=== PATIENT | male | born 1950 | race Caucasian/White ===

== ENCOUNTER 2019-12-14 12:55 | Outpatient (REF) | payer MEDICARE, SELFPAY ==
[2019-12-14 14:05] LABS: MANUAL DIFF FLAG NO
[2019-12-14 14:08] LABS: Basophils Percent Auto 0.4 % (0-2); Eosinophils Absolute Auto 0.4 X10*3/uL (0.0-0.4); Eosinophils Percent Auto 4.9 % (0-4); Hematocrit 47.3 % (42-52); Hemoglobin 15.1 g/dl (14.0-18.0); Imm Gran Abs Auto 0.04 X10*3/uL (0.00-0.03); Imm Gran Pct Auto 0.4 % (0.0-0.4); Lymphocytes Absolute Auto 2.6 X10*3/uL (1.2-4.9); Lymphocytes Percent Auto 29.3 % (20-40); Mean Corpuscular HGB Conc 31.9 g/dl (31.0-36.0); Mean Corpuscular Hemoglobin 28.9 pg (27.0-33.0); Mean Corpuscular Volume 90.6 fL (80-98); Mean Platelet Volume 9.3 fL (9.4-12.4); Monocytes Absolute Auto 0.9 X10*3/uL (0.1-1.2); Monocytes Percent Auto 9.4 % (2-11); Neutrophils Percent Auto 55.6 % (45-73); Platelet Count 206 X10*3/uL (160-400); Red Blood Count 5.22 X10*6/uL (4.60-5.80); Red Cell Distribution Width 13.4 % (11.0-16.0)
[2019-12-14 14:24] LABS: Glucose Urine UA NEG (NEG); Leukocyte Esterase Urine NEG (NEG); Nitrite Urine NEG (NEG); Specific Gravity - Urine 1.025 (1.005-1.025); Urine Blood 1+ (NEG); Urine Ketones NEG (NEG); Urine Protein NEG (NEG-TRACE)
[2019-12-14 14:32] LABS: Appearance Urine CLEAR; Color Urine YELLOW
[2019-12-14 14:40] LABS: Alanine Aminotransferase 40 U/L (0-40); Alkaline Phosphatase 94 U/L (39-117); Anion Gap 10 (12-20); Aspartate Amino Transferase 30 U/L (5-37); Bilirubin Total 0.8 mg/dL (0.0-1.0); Blood Urea Nitrogen 22 mg/dL (9-16); Calcium 8.9 mg/dL (8.4-10.2); Carbon Dioxide 28 mmol/L (22-29); Chloride 106 mmol/L (96-108); Cholesterol 195 mg/dL; Estimated Glomerular Filt Rate > 60; Glucose Fasting 105 mg/dL (60-99); HDL Cholesterol 45 mg/dL; LDL Cholesterol Calculated 113 mg/dl; Potassium 4.3 mmol/l (3.3-5.1); Sodium 140 mmol/L (135-145); Total Protein 6.9 g/dL (6.5-8.0); Triglycerides 189 mg/dL
[2019-12-14 14:41] LABS: Creatinine Urine 104.01 mg/dL; Microalbum/Creatinine Ratio Ur 12.4 ug/mg cr
[2019-12-14 15:02] LABS: Prostate Specific Antigen 0.49 ng/mL (<0.05-4.0); Thyroid Stimulating Hormone 2.28 mIU/mL (0.32-4.0)
[2019-12-14 15:07] LABS: WBC Urine 0 /HPF (0-4)
[2019-12-14 15:25] LABS: Estimated Average Glucose 131 mg/dL; Hemoglobin A1c % 6.2 %
== END 2019-12-14 12:56 | disposition home or self-care (01) ==
LOC: HO.LAB 12:55
PROVIDERS: PCP Internal Medicine; Visit Provider Internal Medicine
DX: Z12.5 Encounter for screening for malignant neoplasm of prostate (principal); I10 Essential (primary) hypertension; E03.9 Hypothyroidism, unspecified; R73.03 Prediabetes; E78.00 Pure hypercholesterolemia, unspecified; J44.9 Chronic obstructive pulmonary disease, unspecified; F17.200 Nicotine dependence, unspecified, uncomplicated; Z87.448 Personal history of other diseases of urinary system
CPT/HCPCS: 36415; 80053; 80061; 81001; 82043; 83036; 84153; 84443; 85025

== ENCOUNTER 2020-06-12 10:54 | Outpatient (REF) | payer MEDICARE, SELFPAY ==
[2020-06-12 12:57] LABS: Estimated Average Glucose 126 mg/dL
[2020-06-12 13:44] LABS: Alanine Aminotransferase 27 U/L (0-40); Albumin Level 3.8 g/dL (3.5-5.0); Alkaline Phosphatase 93 U/L (39-117); Aspartate Amino Transferase 26 U/L (5-37); Bilirubin Direct 0.4 mg/dL (0.0-0.5); Bilirubin Total 0.9 mg/dL (0.0-1.0); Cholesterol 178 mg/dL; Glucose Fasting 112 mg/dL (60-99); HDL Cholesterol 44 mg/dL; LDL Cholesterol Calculated 109 mg/dl; Total Protein 6.9 g/dL (6.5-8.0); Triglycerides 127 mg/dL
[2020-06-12 14:04] LABS: TSH reflex Free T4 2.61 uIU/mL (0.32-4.0)
[2020-06-12 15:44] LABS: Reflex LDLD? No
== END 2020-06-12 10:55 | disposition home or self-care (01) ==
LOC: HO.LNP 10:54
PROVIDERS: Visit Provider Internal Medicine
DX: I10 Essential (primary) hypertension (principal); E03.9 Hypothyroidism, unspecified; R73.03 Prediabetes; E78.00 Pure hypercholesterolemia, unspecified
CPT/HCPCS: 80061; 80076; 82947; 83036; 84443

== ENCOUNTER 2020-12-18 10:46 | Outpatient (REF) | payer MEDICARE, SELFPAY ==
[2020-12-18 10:50] LABS: MANUAL DIFF FLAG NO
[2020-12-18 11:08] LABS: Basophils Percent Auto 0.4 % (0-2); Eosinophils Absolute Auto 0.5 X10*3/uL (0.0-0.4); Eosinophils Percent Auto 5.6 % (0-4); Hematocrit 44.6 % (42-52); Hemoglobin 14.3 g/dl (14.0-18.0); Imm Gran Abs Auto 0.03 X10*3/uL (0.00-0.03); Imm Gran Pct Auto 0.3 % (0.0-0.4); Lymphocytes Absolute Auto 2.9 X10*3/uL (1.2-4.9); Lymphocytes Percent Auto 32.2 % (20-40); Mean Corpuscular HGB Conc 32.1 g/dl (31.0-36.0); Mean Corpuscular Volume 90.5 fL (80-98); Mean Platelet Volume 9.4 fL (9.4-12.4); Monocytes Absolute Auto 0.9 X10*3/uL (0.1-1.2); Monocytes Percent Auto 10.4 % (2-11); Neutrophils Absolute Auto 4.6 X10*3/uL (2.0-8.3); Neutrophils Percent Auto 51.1 % (45-73); Platelet Count 213 X10*3/uL (160-400); Red Blood Count 4.93 X10*6/uL (4.60-5.80); Red Cell Distribution Width 13.8 % (11.0-16.0)
[2020-12-18 11:21] LABS: Appearance Urine CLEAR; Color Urine YELLOW; Glucose Urine UA NEG (NEG); Leukocyte Esterase Urine NEG (NEG); Nitrite Urine NEG (NEG); Specific Gravity - Urine >= 1.030 (1.005-1.025); Urine Blood TRACE (NEG); Urine Ketones NEG (NEG); Urine Protein NEG (NEG-TRACE)
[2020-12-18 11:32] LABS: Estimated Average Glucose 128 mg/dL; Hemoglobin A1c % 6.1 %
[2020-12-18 11:44] LABS: Alanine Aminotransferase 29 U/L (0-40); Albumin Level 3.7 g/dL (3.5-5.0); Alkaline Phosphatase 99 U/L (39-117); Anion Gap 12 (12-20); Aspartate Amino Transferase 24 U/L (5-37); Bilirubin Total 0.3 mg/dL (0.0-1.0); Blood Urea Nitrogen 25 mg/dL (9-16); Calcium 8.9 mg/dL (8.4-10.2); Carbon Dioxide 26 mmol/L (22-29); Chloride 106 mmol/L (96-108); Cholesterol 153 mg/dL; Estimated Glomerular Filt Rate 59; Glucose Fasting 112 mg/dL (60-99); HDL Cholesterol 38 mg/dL; LDL Cholesterol Calculated 70 mg/dl; Potassium 4.1 mmol/L (3.3-5.1); Sodium 140 mmol/L (135-145); Total Protein 6.7 g/dL (6.5-8.0); Triglycerides 226 mg/dL
[2020-12-18 11:45] LABS: PSA,Total (Free>4and<10) 0.47 ng/mL (0.00-4.00); TSH reflex Free T4 2.44 uIU/mL (0.32-4.0)
[2020-12-18 11:59] LABS: Creatinine Urine 206.31 mg/dL; Microalbum/Creatinine Ratio Ur 5.3 ug/mg cr
[2020-12-18 12:05] LABS: WBC Urine 0-2 /HPF (0-4)
[2020-12-18 12:33] LABS: Reflex LDLD? No
== END 2020-12-18 10:47 | disposition home or self-care (01) ==
LOC: HO.LNP 10:46
PROVIDERS: Visit Provider Internal Medicine
DX: Z00.00 Encounter for general adult medical examination without abnormal findings (principal); Z12.5 Encounter for screening for malignant neoplasm of prostate; E03.9 Hypothyroidism, unspecified; E78.00 Pure hypercholesterolemia, unspecified; I10 Essential (primary) hypertension; R73.03 Prediabetes
CPT/HCPCS: 80053; 80061; 81001; 81003; 82043; 83036; 84153; 84443; 85025

== ENCOUNTER 2021-02-09 14:14 | Outpatient (REF) | payer MEDICARE, SELFPAY ==
--- NOTE | ~2021-02-09 | CT_ITS ---
EXAMINATION: CT CHEST SCREENING CLINICAL INFORMATION: Smoking history. Current smoker. Greater than 50 pack-year history. COMPARISON: None. TECHNIQUE: Multidetector volumetric CT imaging of the chest is performed without contrast using low dose technique. Additional 2D coronal and sagittal reformatted images and axial 3D maximum intensity projection (MIP) images are generated on the CT workstation. This CT examination was performed using dose optimization techniques as appropriate, variously including the following: *Automated exposure control *Adjustment of mA and/or kV according to patient size (this includes techniques or standardized protocols for targeted exams where dose is matched to indication/reason for exam; i.e. extremities or head) *Use of iterative reconstruction technique DLP: 69 mGy-cm FINDINGS: LUNGS: There is a 3 mm peripheral or subpleural calcified right upper lobe nodule axial image 124 series 5. There is a 3 mm peripheral or subpleural calcified left lower lobe nodule axial image 220 series 5. There is a 3 mm peripheral or subpleural calcified right lower lobe nodule axial image 405 series 5. Increased peripheral interstitial markings or reticulation questionable for mild interstitial lung disease. This is greatest in the right lower lobe. MEDIASTINUM: There is coronary artery calcification. The mediastinum is otherwise normal. PLEURA: There is no pleural effusion. There is is bilateral pleural thickening and scattered areas of pleural calcification. No pleural mass is seen. AXILLA: No lymphadenopathy. UPPER ABDOMEN: There is a 4 cm low-attenuation lesion in the upper pole of the right kidney probably representing a cyst. OSSEOUS STRUCTURES: There are degenerative changes of the spine. CT/CT lung screening IMPRESSION: Scattered areas of pleural thickening and pleural calcification questionable for asbestos related pleural disease. Small calcified pulmonary nodules. No suspicious pulmonary nodule seen. Increased peripheral reticular markings questionable for early interstitial lung disease. Coronary artery calcification. ASSESSMENT: Lung-RADS category 2: Benign RECOMMENDATION: Annual low-dose chest CT follow-up recommended.
== END 2021-02-09 14:15 | disposition home or self-care (01) ==
LOC: HO.CT 14:14
PROVIDERS: PCP Internal Medicine; Visit Provider Physician Assistant Medical
DX: Z12.2 Encounter for screening for malignant neoplasm of respiratory organs (principal); F17.210 Nicotine dependence, cigarettes, uncomplicated
CPT/HCPCS: 71271; G0296

== ENCOUNTER 2021-06-21 12:17 | Outpatient (REF) | payer MEDICARE, SELFPAY ==
[2021-06-21 12:43] LABS: Estimated Average Glucose 126 mg/dL
[2021-06-21 12:52] LABS: Alanine Aminotransferase 47 U/L (0-40); Albumin Level 3.9 g/dL (3.5-5.0); Alkaline Phosphatase 94 U/L (39-117); Aspartate Amino Transferase 27 U/L (5-37); Bilirubin Direct 0.2 mg/dL (0.0-0.5); Bilirubin Total 0.6 mg/dL (0.0-1.0); Cholesterol 177 mg/dL; Glucose Fasting 141 mg/dL (60-99); HDL Cholesterol 43 mg/dL; LDL Cholesterol Calculated 103 mg/dl; Total Protein 7.1 g/dL (6.5-8.0); Triglycerides 156 mg/dL
[2021-06-21 13:29] LABS: Reflex LDLD? No
== END 2021-06-21 12:18 | disposition home or self-care (01) ==
LOC: HO.LNP 12:17
PROVIDERS: Visit Provider Internal Medicine
DX: R73.03 Prediabetes (principal); E78.00 Pure hypercholesterolemia, unspecified
CPT/HCPCS: 80061; 80076; 82947; 83036

== ENCOUNTER 2021-12-20 10:46 | Outpatient (REF) | payer MEDICARE, SELFPAY ==
[2021-12-20 10:50] LABS: MANUAL DIFF FLAG NO
[2021-12-20 11:53] LABS: Basophils Absolute Auto 0.1 X10*3/uL (0.0-0.2); Basophils Percent Auto 0.6 % (0-2); Eosinophils Absolute Auto 0.5 X10*3/uL (0.0-0.4); Eosinophils Percent Auto 4.9 % (0-4); Hemoglobin 15.2 g/dl (14.0-18.0); Imm Gran Abs Auto 0.04 X10*3/uL (0.00-0.03); Imm Gran Pct Auto 0.4 % (0.0-0.4); Lymphocytes Absolute Auto 3.1 X10*3/uL (1.2-4.9); Mean Corpuscular Volume 87.8 fL (80.0-98.0); Monocytes Percent Auto 10.9 % (2-11); Neutrophils Absolute Auto 4.6 x10*3/uL (2.0-8.3); Neutrophils Percent Auto 50.2 % (45-73); Platelet Count 218 X10*3/uL (160-400); Red Blood Count 5.24 X10*6/uL (4.60-5.80); Red Cell Distribution Width 13.4 % (11.0-16.0); White Blood Count 9.3 X10*3/uL (4.8-10.8)
[2021-12-20 12:02] LABS: Alanine Aminotransferase 38 U/L (0-40); Alkaline Phosphatase 94 U/L (39-117); Anion Gap 15 (12-20); Aspartate Amino Transferase 31 U/L (5-37); Bilirubin Total 0.8 mg/dL (0.0-1.0); Blood Urea Nitrogen 17 mg/dL (9-16); Calcium 8.9 mg/dL (8.4-10.2); Carbon Dioxide 26 mmol/L (22-29); Chloride 103 mmol/L (96-108); Cholesterol 171 mg/dL; Estimated Glomerular Filt Rate > 60; Glucose Fasting 112 mg/dL (60-99); HDL Cholesterol 38 mg/dL; LDL Cholesterol Calculated 102 mg/dl; Potassium 4.2 mmol/L (3.3-5.1); Sodium 140 mmol/L (135-145); Total Protein 7.2 g/dL (6.5-8.0); Triglycerides 158 mg/dL
[2021-12-20 12:22] LABS: Creatinine Urine 126.18 mg/dL; Microalbum/Creatinine Ratio Ur 6.3 ug/mg cr
[2021-12-20 12:25] LABS: Estimated Average Glucose 137 mg/dL; Hemoglobin A1c % 6.4 %
[2021-12-20 13:20] LABS: Appearance Urine Clear; Color Urine Yellow; Glucose Urine UA Negative (Negative); Leukocyte Esterase Urine Negative (Negative); Nitrite Urine Negative (Negative); Urine Blood Negative (Negative); Urine Ketones Negative (Negative); Urine Protein Negative (Neg-Trace)
[2021-12-20 13:25] LABS: Bacteria Urine None Seen (None Seen); Hyaline Casts Urine 0-2 /LPF (0-2); Squamous Epithelial Cell Urine 0-2 /HPF (0-2); WBC Urine 0-5 /HPF (0-5)
== END 2021-12-20 10:47 | disposition home or self-care (01) ==
LOC: HO.LNP 10:46
PROVIDERS: Visit Provider Internal Medicine
DX: Z12.5 Encounter for screening for malignant neoplasm of prostate (principal); I10 Essential (primary) hypertension; E03.9 Hypothyroidism, unspecified; E78.00 Pure hypercholesterolemia, unspecified; R73.03 Prediabetes
CPT/HCPCS: 80053; 80061; 81001; 82043; 83036; 84153; 84443; 85025

== ENCOUNTER 2022-02-12 16:16 | Outpatient (REF) | payer MEDICARE, SELFPAY ==
--- NOTE | ~2022-02-12 | CT_ITS ---
EXAMINATION: CT CHEST SCREENING CLINICAL INFORMATION: Smoking history. Current smoker. 54 pack year history. COMPARISON: Previous chest CT January 2021 TECHNIQUE: Multidetector volumetric CT imaging of the chest is performed without contrast using low dose technique. Additional 2D coronal and sagittal reformatted images and axial 3D maximum intensity projection (MIP) images are generated on the CT workstation. This CT examination was performed using dose optimization techniques as appropriate, variously including the following: *Automated exposure control *Adjustment of mA and/or kV according to patient size (this includes techniques or standardized protocols for targeted exams where dose is matched to indication/reason for exam; i.e. extremities or head) *Use of iterative reconstruction technique DLP: 135 mGy-cm FINDINGS: LUNGS: Small calcified and noncalcified pulmonary nodules are stable, largest measuring 3 mm. Slight interval increase in peripheral or subpleural scarring or subsegmental atelectasis in the posteromedial right lower lobe adjacent to the spine; for example, axial image 454 series 4. There is again question of mild peripheral interstitial lung disease in the right lower lobe. No endobronchial or endotracheal lesion. MEDIASTINUM: Normal. CORONARY ARTERY CALCIFICATION: [id number]. PLEURA: Bilateral calcified and noncalcified pleural plaques similar to previous exam. No pleural effusion. AXILLA: No lymphadenopathy. UPPER ABDOMEN: Right renal cyst is stable. OSSEOUS STRUCTURES: Degenerative changes of the spine. CT/CT lung screening IMPRESSION: Interval increase in probable scarring or subsegmental atelectasis in the peripheral or subpleural right lower lobe adjacent to the spine. Stable small calcified and noncalcified pulmonary nodules, largest measuring 3 mm. Stable calcified and noncalcified pleural plaques. Qjat-ku-gpoqsccj coronary artery calcification. ASSESSMENT: Lung-RADS category 2: Benign RECOMMENDATION: Annual low-dose chest CT follow-up recommended.
== END 2022-02-12 16:17 | disposition home or self-care (01) ==
LOC: HO.CT 16:16
PROVIDERS: PCP Internal Medicine; Visit Provider Physician Assistant Medical
DX: Z12.2 Encounter for screening for malignant neoplasm of respiratory organs (principal); F17.210 Nicotine dependence, cigarettes, uncomplicated
CPT/HCPCS: 71271

== ENCOUNTER 2022-06-20 10:33 | Outpatient (REF) | payer MEDICARE, SELFPAY ==
[2022-06-20 11:08] LABS: Alanine Aminotransferase 47 U/L (0-40); Albumin Level 3.8 g/dL (3.5-5.0); Alkaline Phosphatase 99 U/L (39-117); Aspartate Amino Transferase 30 U/L (5-37); Bilirubin Direct 0.2 mg/dL (0.0-0.5); Cholesterol 188 mg/dL; HDL Cholesterol 39 mg/dL; LDL Cholesterol Calculated 106 mg/dl; Total Protein 6.6 g/dL (6.5-8.0); Triglycerides 219 mg/dL
== END 2022-06-20 10:34 | disposition home or self-care (01) ==
LOC: HO.LNP 10:33
PROVIDERS: Visit Provider Internal Medicine
DX: E78.00 Pure hypercholesterolemia, unspecified (principal)
CPT/HCPCS: 80061; 80076

== ENCOUNTER 2022-12-23 11:12 | Outpatient (REF) | payer MEDICARE, SELFPAY ==
[2022-12-23 11:20] LABS: MANUAL DIFF FLAG NO
[2022-12-23 11:42] LABS: Appearance Urine Clear; Color Urine Yellow; Glucose Urine UA Negative (Negative); Leukocyte Esterase Urine Negative (Negative); Nitrite Urine Negative (Negative); UMIC TRIGGER UACC YES; Urine Blood Trace (Negative); Urine Ketones Negative (Negative); Urine Protein Negative (Neg-Trace)
[2022-12-23 11:45] LABS: Basophils Percent Auto 0.4 % (0-2); Eosinophils Absolute Auto 0.2 X10*3/uL (0.0-0.4); Eosinophils Percent Auto 2.4 % (0-4); Hematocrit 48.8 % (42.0-52.0); Hemoglobin 15.6 g/dl (14.0-18.0); Imm Gran Abs Auto 0.05 X10*3/uL (0.00-0.03); Imm Gran Pct Auto 0.5 % (0.0-0.4); Lymphocytes Absolute Auto 3.3 X10*3/uL (1.2-4.9); Lymphocytes Percent Auto 34.6 % (20-40); Mean Corpuscular Hemoglobin 29.6 pg (27.0-33.0); Mean Corpuscular Volume 92.6 fL (80.0-98.0); Mean Platelet Volume 9.6 fL (9.4-12.4); Monocytes Percent Auto 9.9 % (2-11); Neutrophils Percent Auto 52.2 % (45-73); Platelet Count 228 X10*3/uL (160-400); Red Blood Count 5.27 X10*6/uL (4.60-5.80); Red Cell Distribution Width 14.3 % (11.0-16.0); White Blood Count 9.6 X10*3/uL (4.8-10.8)
[2022-12-23 11:46] LABS: Bacteria Urine None Seen (None Seen); Estimated Average Glucose 126 mg/dL; Hemoglobin A1C 150.1773 umol/L; Hyaline Casts Urine 0-2 /LPF (0-2); RBC Urine 0-2 /HPF (0-2); Squamous Epithelial Cell Urine 0-2 /HPF (0-2); WBC Urine 0-5 /HPF (0-5)
[2022-12-23 12:18] LABS: Alanine Aminotransferase 35 U/L (0-40); Albumin Level 3.8 g/dL (3.5-5.0); Alkaline Phosphatase 89 U/L (39-117); Anion Gap 14 (12-20); Aspartate Amino Transferase 27 U/L (5-37); Bilirubin Total 0.6 mg/dL (0.0-1.0); Blood Urea Nitrogen 17 mg/dL (9-16); Calcium 9.5 mg/dL (8.4-10.2); Carbon Dioxide 28 mmol/L (22-29); Chloride 104 mmol/L (96-108); Cholesterol 163 mg/dL (<200); Estimated Glomerular Filt Rate > 60; Glucose Fasting 118 mg/dL (60-99); HDL Cholesterol 40 mg/dL (>40); LDL Cholesterol Calculated 92 mg/dL (<100); Potassium 3.9 mmol/L (3.3-5.1); Sodium 142 mmol/L (135-145); Total Protein 7.2 g/dL (6.5-8.0); Triglycerides 159 mg/dL (<150)
[2022-12-23 12:20] LABS: Creatinine Urine 144.51 mg/dL; Microalbum/Creatinine Ratio Ur 6.2 ug/mg cr (<30)
[2022-12-23 12:23] LABS: TSH reflex Free T4 2.38 uIU/mL (0.32-4.0)
[2022-12-23 12:28] LABS: PSA,Total (Free>4and<10) 1.11 ng/mL (0.00-4.00)
== END 2022-12-23 11:13 | disposition home or self-care (01) ==
LOC: HO.LNP 11:12
PROVIDERS: Visit Provider Internal Medicine
DX: Z12.5 Encounter for screening for malignant neoplasm of prostate (principal); I10 Essential (primary) hypertension; R73.03 Prediabetes; E78.00 Pure hypercholesterolemia, unspecified
CPT/HCPCS: 80053; 80061; 81001; 82043; 82570; 83036; 84153; 84443; 85025

== ENCOUNTER 2023-04-23 15:56 | Outpatient (REF) | payer MEDICARE, SELFPAY ==
--- NOTE | ~2023-04-23 | CT_ITS ---
EXAMINATION: CT CHEST SCREENING CLINICAL INFORMATION: Current smoker with a 45 pack-year smoking history. COMPARISON: Prior CT examinations dated 02/12/2023 and 02/09/2021. TECHNIQUE: Multidetector volumetric CT imaging of the chest is performed without contrast using low dose technique. Additional 2D coronal and sagittal reformatted images and axial 3D maximum intensity projection (MIP) images are generated on the CT workstation. This CT examination was performed using dose optimization techniques as appropriate, variously including the following: *Automated exposure control *Adjustment of mA and/or kV according to patient size (this includes techniques or standardized protocols for targeted exams where dose is matched to indication/reason for exam; i.e. extremities or head) *Use of iterative reconstruction technique DLP: 70 mGy-cm FINDINGS: LUNGS: The lungs are clear, with no evidence of acute inflammation or noncalcified nodules. There are a few bilateral scattered benign, calcified granulomas. There are scattered foci of minor scar/subsegmental atelectasis at the right base, without associated focal airway obstruction. MEDIASTINUM: The thyroid is unremarkable. There is no thoracic aortic aneurysm. There are mild atherosclerotic calcifications of the great vessel origins and thoracic aorta. No mediastinal or hilar lymphadenopathy is seen. CORONARY ARTERY CALCIFICATION: Mild. PLEURA: There are multiple bilateral calcified pleural plaques, most pronounced anteriorly within the upper thoracic cavities. No pleural mass lesion is noted. AXILLA: No lymphadenopathy. UPPER ABDOMEN: A low-attenuation, simple appearing right renal cyst is partially included in the [id number]. The adrenal glands are unremarkable. OSSEOUS STRUCTURES: There is multi-level marked thoracolumbar spondylosis, with an appearance suggesting possible DISH (diffuse idiopathic skeletal hyperostosis). No acute or aggressive osseous finding is noted. CT/CT lung screening IMPRESSION: 1. There are benign, calcified granulomas. 2. No new nodule, mass, infiltrate or groundglass opacity is seen. 3. There is minor scar/subsegmental atelectasis at the right base, without associated focal airway obstruction. 4. No thoracic lymphadenopathy or pleural effusion is seen. 5. There are multiple calcified pleural plaques, suggesting prior asbestos exposure. No scooby pleural mass is noted. 6. Skeletal findings suggest possible DISH. No aggressive osseous lesion is seen. 7. There are mild coronary artery atherosclerotic calcifications. ASSESSMENT: Lung-RADS category 1: Negative RECOMMENDATION: Routine annual low-dose CT screening in 12 months.
== END 2023-04-23 15:57 | disposition home or self-care (01) ==
LOC: HO.CT 15:56
PROVIDERS: PCP Internal Medicine; Visit Provider Nurse Practitioner Family
DX: Z12.2 Encounter for screening for malignant neoplasm of respiratory organs (principal); F17.210 Nicotine dependence, cigarettes, uncomplicated
CPT/HCPCS: 71271

== ENCOUNTER 2023-06-23 11:19 | Outpatient (REF) | payer MEDICARE, SELFPAY ==
[2023-06-23 11:40] LABS: Alanine Aminotransferase 49 U/L (0-40); Albumin Level 3.8 g/dL (3.5-5.0); Alkaline Phosphatase 104 U/L (39-117); Aspartate Amino Transferase 38 U/L (5-37); Bilirubin Direct 0.2 mg/dL (0.0-0.5); Bilirubin Total 0.6 mg/dL (0.0-1.0); Cholesterol 159 mg/dL (<200); HDL Cholesterol 32 mg/dL (>40); LDL Cholesterol Calculated 102 mg/dL (<100); Total Protein 7.3 g/dL (6.5-8.0); Triglycerides 127 mg/dL (<150)
[2023-06-23 11:51] LABS: Reflex LDLD? No
== END 2023-06-23 11:20 | disposition home or self-care (01) ==
LOC: HO.LNP 11:19
PROVIDERS: Visit Provider Internal Medicine
DX: E78.00 Pure hypercholesterolemia, unspecified (principal)
CPT/HCPCS: 80061; 80076

== ENCOUNTER 2023-12-29 11:50 | Outpatient (REF) | payer MEDICARE, SELFPAY ==
[2023-12-29 11:55] LABS: MANUAL DIFF FLAG NO
[2023-12-29 12:14] LABS: Basophils Absolute Auto 0.1 X10*3/uL (0.0-0.2); Basophils Percent Auto 0.5 % (0-2); Eosinophils Absolute Auto 0.5 X10*3/uL (0.0-0.4); Eosinophils Percent Auto 5.4 % (0-4); Hematocrit 46.3 % (42.0-52.0); Hemoglobin 14.7 g/dl (14.0-18.0); Imm Gran Abs Auto 0.02 X10*3/uL (0.00-0.03); Imm Gran Pct Auto 0.2 % (0.0-0.4); Lymphocytes Absolute Auto 2.9 X10*3/uL (1.2-4.9); Mean Corpuscular HGB Conc 31.7 g/dl (31.0-36.0); Mean Corpuscular Hemoglobin 29.5 pg (27.0-33.0); Mean Platelet Volume 9.4 fL (9.4-12.4); Monocytes Absolute Auto 0.9 X10*3/uL (0.1-1.2); Monocytes Percent Auto 9.7 % (2-11); Neutrophils Absolute Auto 4.9 x10*3/uL (2.0-8.3); Neutrophils Percent Auto 53.2 % (45-73); Platelet Count 239 X10*3/uL (160-400); Red Blood Count 4.98 X10*6/uL (4.60-5.80); Red Cell Distribution Width 13.8 % (11.0-16.0); White Blood Count 9.3 X10*3/uL (4.8-10.8)
[2023-12-29 12:16] LABS: Appearance Urine Clear; Color Urine Yellow; Glucose Urine UA Negative (Negative); Leukocyte Esterase Urine Negative (Negative); Nitrite Urine Negative (Negative); PH 5.5 (5.0-9.0); Urine Blood Negative (Negative); Urine Ketones Negative (Negative); Urine Protein Negative (Neg-Trace)
[2023-12-29 12:19] LABS: Bacteria Urine None Seen (None Seen); Hyaline Casts Urine 0-2 /LPF (0-2); RBC Urine 0-2 /HPF (0-2); Squamous Epithelial Cell Urine 0-2 /HPF (0-2); WBC Urine 0-5 /HPF (0-5)
[2023-12-29 12:34] LABS: Estimated Average Glucose 128 mg/dL; Hemoglobin A1C 163.0702 umol/L; Hemoglobin A1c % 6.1 % (<6.0); Total Hemoglobin (HGBA1C) 3755.4239 umol/L
[2023-12-29 12:40] LABS: Alanine Aminotransferase 44 U/L (0-40); Albumin Level 3.8 g/dL (3.5-5.0); Alkaline Phosphatase 91 U/L (39-117); Anion Gap 12 (12-20); Aspartate Amino Transferase 38 U/L (5-37); Bilirubin Direct 0.1 mg/dL (0.0-0.5); Blood Urea Nitrogen 17 mg/dL (9-16); Calcium 9.6 mg/dL (8.4-10.2); Carbon Dioxide 29 mmol/L (22-29); Chloride 105 mmol/L (96-108); Cholesterol 193 mg/dL (<200); Estimated Glomerular Filt Rate > 60; Glucose Fasting 122 mg/dL (60-99); HDL Cholesterol 39 mg/dL (>40); LDL Cholesterol Calculated 107 mg/dL (<100); Sodium 142 mmol/L (135-145); Total Protein 7.3 g/dL (6.5-8.0); Triglycerides 237 mg/dL (<150)
[2023-12-29 12:44] LABS: Bilirubin Total 0.4 mg/dL (0.0-1.0)
[2023-12-29 12:45] LABS: PSA,Total (Free>4and<10) 0.59 ng/mL (0.00-4.00)
[2023-12-29 12:47] LABS: TSH reflex Free T4 3.46 uIU/mL (0.32-4.0)
[2023-12-29 13:02] LABS: Creatinine Urine 115.98 mg/dL; Microalbum/Creatinine Ratio Ur 4.3 ug/mg cr (<30)
== END 2023-12-29 11:51 | disposition home or self-care (01) ==
LOC: HO.LNP 11:50
PROVIDERS: Visit Provider Internal Medicine
DX: E03.9 Hypothyroidism, unspecified (principal); R73.09 Other abnormal glucose; E78.00 Pure hypercholesterolemia, unspecified; Z12.5 Encounter for screening for malignant neoplasm of prostate
CPT/HCPCS: 80053; 80061; 80076; 81001; 82043; 82248; 82570; 83036; 84153; 84443; 85025

== ENCOUNTER 2024-04-26 12:59 | Outpatient (REF) | payer MEDICARE, SELFPAY ==
--- NOTE | ~2024-04-26 | CT_ITS ---
CLINICAL HISTORY: F17.210 - Nicotine dependence, cigarettes, uncomplicated CT lung cancer screening (LDCT) Comparison: CT/REG/SR - CT LUNG SCREENING - 04/23/23 16:26 EST Technique: Axial CT images of the chest using low-dose technique. Referring provider counseled the patient on shared decision-making for LDCT screening. Additional counseling was provided on smoking cessation. Effective radiation dose total: DLP 57.7 mGycm, CTDIvol 1.8 mGy. Findings: Lung: Mild emphysema. Calcified granulomas. Coronary artery calcifications: Moderate Limited upper abdomen: Limited evaluation of the right renal cyst. Other: There are calcified pleural plaques. Impression: LungRADS 1: Negative exam. Continue annual screening with low dose Chest CT in 12 months. ##L1# Evidence of previous asbestos exposure. Category 1: Normal; continue annual screening Category 2: Benign appearance or behavior, continue annual screening Category 3: Probably benign, [address] recommended Category 4A: Suspicious, [address] recommended; may consider PET/CT Category 4B: Suspicious, Additional diagnostics and/or tissue sampling recommended Category 4X: Suspicious, Additional diagnostics and/or tissue sampling recommended Category 0: Recalls (incomplete screen due to Incomplete coverage, Noise, Respiratory motion, Expiration, Obscured by acute abnormality) This document has been electronically signed by: Ester Aguilar MD on 04/27/2024 12:49:07
--- OUTSIDE RECORDS SUMMARY | 2024-04-26 14:45 | XMS_ITS ---
Author Organization Dhruv Duncan MD Address [address] [place] [phone] Care Team Providers Care Director Network Development Name Role Phone Dhruv Duncan Primary Care Provider REASON FOR VISIT 6 month Encounters Encounter Location Date Provider Diagnosis Dhruv Duncan MD [address] [place] [address] [address] [place] [phone] 12/30/2023 Dhruv Duncan Plan Of Treatment Next Appt Details Provider Name:Dhruv jeffers, 06/28/2024 07:30:00 AM, [address] [place] [address], [phone], Provider Name:Dhruv jeffers, 07/05/2024 02:00:00 PM, [address] [place] [address], [phone], Provider Name:Dhruv jeffers, 12/31/2024 07:15:00 AM, [address] [place] [address], [phone], Provider Name:Dhruv jeffers, 01/07/2025 01:00:00 PM, [address] [place] [address], [phone], Progress Notes * Ortega LANGE LDOB:[birth year] (73 yo M)Acc No.[id number]:12/30/2023 Progress Notes Patient:?Ortega LANGE Provider:?Dhruv Duncan MD :1950???Age:73 Y???Sex:Male Atilio e:12/30/2023 Address:[address] [place], [place] [id number] Subjective: * Chief Complaints: * ???1. 6 month. * Medical History:? Objective: * Vitals:? Assessment: Plan: * Treatment: * * The named appointment provid er may or may not be the originator of this progress note, and it is not deemed complete until electronically signed by the appointment provider. Sign off status: Pending * Provider:?Dhruv Duncan MD Date:?1 Generated for Ceasar beltran/Jovon/Ninaitting on:?04/26/2024 02:45 PM EST
--- OUTSIDE RECORDS SUMMARY | 2024-04-26 14:46 | XMS_ITS ---
Author Organization Dhruv Duncan MD Address [address] [place] [phone] Care Team Providers Care Loan Analyst Name Role Phone Dhruv Duncan Primary Care Provider Allergies No Known Allergies REASON FOR VISIT Sick for 2 weeks with vomiting and diarrhea started with chills since 04-16-24 productive cough congestion, muscle pains, runny nose, Video [phone], Did not test for Covid Medications Medication [...] Dhruv Duncan MD [address] [place] [phone] 04/22/2024 Dhruv Duncan Gastroenteritis due to norovirus [...] Next Appt Details Provider Name:Dhruv Araujo ier, 06/28/2024 07:30:00 AM, [address] [place] [address], [address], [phone], Provider Name:Dhruv Araujo ier, 07/05/2024 02:00:00 PM, [address] [place] [address], [address], [phone], Provider Name:Dhruv Araujo ier, 12/31/2024 07:15:00 AM, [address] [place] [address], [address], [phone], Provider Name:Dhruv Araujo ier, 01/07/2025 01:00:00 PM, [address] [place] [address], [address], [phone], Progress Notes * Ortega LANGE LDOB:[birth year] (73 yo M)Acc No.[id number]:04/22/2024 Patient:?Ortega LANGE Provider:?Dhruv Duncan MD :1950???Age:73 Y???Sex:Male Atilio e:04/22/2024 Address:[address] [place] [phone] Subjective: * Chief Complaints: * ???Sick for 2 weeks with vom iting and diarrhea started with chills since 214-25 productive cough congestion, muscle pains, runny noseVideo [phone] not test for Covid * HPI: ???Symptom(s):?Telehealth?Location of provider rendering services:?[address], [address],?Location of patient:?at address listed in demographics for today's visit,?Patient identification confirmed using:?Name, ,?Telehealth method:?Telephone only. Patient not visible to care provider.,?Consent:?Patient verbally consented to treatment, Patient verbally consented to billing insurance company, Patient informed of any privacy concerns related to method of visit,?Total time spend talking with patient (minutes)?16.?patient is a 73 yo male video telehealth, had started last week. and vomiting went away and diarrhea. nothing to eat for 2 days and just a little water. just came back from a cruise and 3 days later had it. * ROS:?General/Constitutional:?Admits?Chills.?Admits?Fatigue.?Denies?Fever.?Admits?Headache.?ENT:?Patient denies?decreased sense of smell, any loss of taste, sore throat.?Denies?Sore throat.?Respiratory:?Admits?Cough.?Denies?Shortness of breath at rest.?Denies?Shortness of breath with exertion.?Admits?Sputum production.?Denies?Wheezing.?Gastrointestinal:?Admits?Diarrhea.?Denies?Nausea.?Denies?Vomiting,?Started vomiting last week now ust diarrhea.?Musculoskeletal:?Patient denies?muscle aches.?Peripheral Vascular:?Patient denies?red and blue toes.? * Medical History:? * Surgical History:? * Hospitalization/Major Diagno stic Procedure:? * Medications:?TakingAtorvasta tin Calcium 80 MG Tablet TAKE ONE TABLET [...] reviewed and reconciled with the patient * Allergies:?N.K.D.A.yes[Aller gies Verified] Objective: * Vitals:?Ht: 72, Wt: 232, BMI :31.46, Wt-k.23. weight at home is 232 BP? not taken no temp. Assessment: * Assessment: 1.?Gastroenteritis due to no rovirus - A08.11 (Primary)??? Plan: * Treatment: * Procedure Codes:? * * Sign off status: Completed true * Provider:?Dhruv Duncan MD Date:?0 04/22/2024 Generated for Ceasar beltran/Jovon/eTsuesmyaw on:?04/26/2024 02:46 PM EST History and Physical Notes * HPI (History of Present Illness) Category Sub-Category Detail Notes Category Not es Symptom(s) Telehealth Location of [facility] rendering services:: [address], [address] [...]
--- OUTSIDE RECORDS SUMMARY | 2024-04-26 14:46 | XMS_ITS ---
Author Organization Dhruv Duncan MD Address [address] [place] [phone] Care Team Providers Care Machine Wiper Name Role Phone Dhruv Duncan Primary Care Provider [phone] Allergies No Known Allergies REASON FOR VISIT review labs Medications Medication SIG (Take, Route, Frequency, Duration) Notes Start Date End Date Status Ibuprofen 800 MG 1 tablet Orally Thre e times a day for 90 days 12/04/2015 Not-Taking Gabapentin 300 MG 1 capsule Orally onc e a day Not-Taking traMADol HCl 50 MG 1 tablet as needed Orally every 6 hrs Not-Taking oxyCODONE HCl 5 MG 1 tablet as needed Orally twice a day as needed for 20 days 09/11/2023 Not-Taking Lisinopril-hydroCHLOROthia zide 20-12.5 MG TAKE ONE TABLET BY MOUTH ONCE DAILY Active Atorvastatin Calcium 80 MG TAKE ONE TABL ET BY MOUTH ONCE DAILY Active Levothyroxine Sodium 175 MCG Take 1 tablet by mouth once daily Active Terbinafine HCl 250 MG 1 tablet Orally O nce a day for 21 days 12/30/2022 Not-Taking Social History Tobacco Use: Social History Observation Description Date Details (start date - stop date) Current Smoker NA - NA Tobacco Use/Smoking Question Answer Notes Patient is a current smoker How often do you smoke cigarettes? every day How many cigarettes a day do you smoke? 5 or les s How soon after you wake up d o you smoke your first cigarette? 6-30 minutes Are you interested in quitting? Thinking about q uitting Additional Findings: Tobacco User Curren t cigarette smoker, not currently using another form of tobacco Alcohol Screen Question Answer Notes Did you have a drink containing alcohol in the p ast year? No Points 0 Interpretation Negative Section Notes: has stopped smoking with juan ntix last cigarette was 03-18-18 Vital Signs Blood pressure systolic 112 mm Hg 01/05/20 24 Blood pressure diastolic 78 mm Hg 024 Height 72 in 01/05/2024 Weight 239 lbs 01/05/2024 BMI 32.41 kg/m2 01/05/2024 Encounters Encounter Location Date Provider Diagnosis Dhruv Duncan MD [address] [place] [address] Drive [address] [place] [id number] 01/05/2024 Dhruv uDncan Essential hypertensi on I10 ; Acquired hypothyroidism E03.9 ; Smoker F17.200 ; Prediabetes R73.09 ; Seborrheic keratosis L82.1 ; Type 2 diabetes mellitus treated without insulin E11.9 ; Chronic obstructive pulmonary disease, unspecified COPD type J44.9 ; Pure hypercholesterolemia E78.00 ; Colon cancer screening Z12.11 and Depression screening Z13.31 Assessments Encounter Date Diagnosis (ICD Code) Assessment Notes Treatment Notes Treatment Clinical Notes Section Notes 01/05/2024 Essential hypertensi on (ICD-10 - I10) well controlled, willcontinue currentregiment 01/05/2024 Acquired hypothyroid ism (ICD-10 - E03.9) tsh is good, at goal, will continue current regiment 01/05/2024 Smoker (ICD-10 - F17.200) not interested in quiitting 01/05/2024 Prediabetes (ICD-10 - R73.09) advised to lose weight and stay away from carbs, will continue to monitor 01/05/2024 Seborrheic keratosis (ICD-10 - L82.1) no need for any treatment 01/05/2024 Type 2 diabetes mellitus treated without insulin (ICD-10 - E11.9) 01/05/2024 Chronic obstructive pulmonary disease, unspecified COPD type (ICD-10 - J44.9) stable, doing well 01/05/2024 Pure hypercholesterolemia (ICD-10 - E78.00) needs to watch diet, will continue current regiment 01/05/2024 Colon cancer screeni ng (ICD-10 - Z12.11) guaiac negative 01/05/2024 Depression screening (ICD-10 - Z13.31) negative screen Plan Of Treatment Medication Medication Name Sig Start Date Stop Date Notes Lisinopril-hydroCHLOROthiazi de 20-12.5 MG TAKE ONE TABLET BY MOUTH ONCE DAILY Atorvastatin Calcium 80 MG TAKE ONE TABL ET BY MOUTH ONCE DAILY Levothyroxine Sodium 175 MCG Take 1 tabl et by mouth once daily Treatment Notes Assessment Notes Essential hypertension well controlled, willcontinue currentregiment Acquired hypothyroidism tsh is good, at goal, will continue current regiment Smoker not interested in qu iitting Prediabetes advised to lose weig ht and stay away from carbs, will continue to monitor Seborrheic keratosis no need for any parminder atment Chronic obstructive pulmonar y disease, unspecified COPD type stable, doing well Pure hypercholesterolemia needs to watch diet, will continue current regiment Colon cancer screening guaiac negative Depression screening negative screen Next Appt Details Follow Up: 6 Months, Reason: Provider Name:Dhruv jeffers, 06/28/2024 07:30:00 AM, [address] [place] [address], [address], [phone], Provider Name:Dhruv jeffers, 07/05/2024 02:00:00 PM, [address] [place] [address], [address], [phone], Provider Name:Dhruv jeffers, 12/31/2024 07:15:00 AM, [address] [place] [address], [address], [phone], Provider Name:Dhruv jeffers, 01/07/2025 01:00:00 PM, [address] [place] [address], [address], [phone], Progress Notes * Ortega LANGE LDOB:[birth year] (73 yo M)Acc No.[id number]:01/05/2024 Patient:?Ortega Lange Provider:?Dhruv Duncan MD :1950???Age:73 Y???Sex:Male Atilio e:01/05/2024 Address:[address] [place] [address], [place], [phone] Subjective: * Chief Complaints: * ???Review labs * HPI: ???Depression Screening:?PHQ-9?Little interest or pleasure in doing things?Not at all,?Feeling down, depressed, or hopeless?Not at all,?Trouble falling or staying asleep, or sleeping too much?Not at all,?Feeling tired or having little energy?Not at all,?Poor appetite or overeating?Not at all,?Feeling bad about yourself or that you are a failure, or have let yourself or your family down?Not at all,?Trouble concentrating on things, such as reading the newspaper or watching television?Not at all,?Moving or speaking so slowly that other people could have noticed; or the opposite, being so fidgety or restless that you have been moving around a lot more than usual?Not at all,?Thoughts that you would be better off or of hurting yourself in some way?Not at all,?Total Score?0.?Interpretation and Intervention?Depression Screening Findings?Negative,?Follow-Up for Depression?: review of PHQ-9 found negative result, no follow-up needed.?Communication Needs:?Communication Needs?Does the patient have a hearing impairment?No,?Does the patient have a vision impairment??Yes,?If yes, what is the vision impairment??Glasses,?Does the patient have a cognition impairment??No.?Fall Risk:?History?Have you had any falls with injury in the past year??No,?Have you had two or more falls in the past year??No.?SDOH Questions:?SDOH Questions?In the past year have you been worried about losing housing??No,?In the past year have you or any family members you live with been unable to get any of the following when it was really needed? Check all that apply:?None.?Symptom(s):? patient is a 73 yo male here for review of recent labs and follow up of chronic issues. * ROS:?General/Constitutional:?Patient denies?fatigue , headache.?Change in appetite?denies.?Chills?denies.?Fever?denies.?Ophthalmologic:?Blurred vision?denies.?Discharge?denies.?Pain?denies.?ENT:?Decreased hearing?denies.?Sore throat?denies.?Swollen glands?denies.?Endocrine:?Cold intolerance?denies.?Excessive thirst?denies.?Heat intolerance?denies.?Weight loss?denies.?Respiratory:?Cough?denies.?Shortness of breath at rest?denies.?Shortness of breath with exertion?denies.?Wheezing?denies.?Cardiovascular:?Chest pain at rest?denies.?Chest pain with exertion?denies.?Irregular heartbeat?denies.?Shortness of breath?denies.?Gastrointestinal:?Abdominal pain?denies.?Change in bowel habits?denies.?Diarrhea?denies.?Nausea?denies.?Rectal bleeding?denies.?Vomiting?denies .?Genitourinary:?Blood in urine?denies.?Difficulty urinating?denies.?Frequent urination?denies.?Musculoskeletal:?Patient denies?muscle aches.?Painful joints?denies.?Weakness?denies.?Peripheral Vascular:?Patient denies?red and blue toes.?Skin:?Dry skin?denies.?Itching?denies.?Denies?Mole(s),? changes in moles, new moles or any lesions of concern.?Denies?Photosensitivity.?Rash?denies.?Neurologic:?Dizziness?denies.?Fainting?denies.?Headache?denies.? * Medical History:? * Surgical History:? * Hospitalization/Major Diagno stic Procedure:? * Family History:?Father: jenny gage 103 yrs, cardiac disease, diagnosed with Diabetes.?Mother: 97 yrs, arthritis.?1 brother(s) , 2 sister(s) - healthy. 3 son(s) - healthy. .? Denies mental health/substance abuse family history, No pertinent family medical history, No pertinent family medical history. * Social History:?Tobacco Use:?Tobacco Use/Smoking?Patient is a?current smoker,?How often do you smoke cigarettes??every day,?How many cigarettes a day do you smoke??5 or less,?How soon after you wake up do you smoke your first cigarette??6-30 minutes,?Are you interested in quitting??Thinking about quitting,?Additional Findings: Tobacco User?Current cigarette smoker, not currently using another form of tobacco.?Drugs/Alcohol:?Alcohol Screen?Did you have a drink containing alcohol in the past year??No,?Points?0,?Interpretation?Negative.?Miscellaneous:?Caffeine: yes, frequency:, more than 4 cups per day. Children: yes. no Community involvements. Exercise: yes, bike and cardio weights. Home smoke detector use: yes. Housing: owning. Living with: alone. Marital status: . Occupation: weeks/months/years, unemployed. Pets: dog x1. Travel outside of the [place]: yes, [place]. ???has stopped smoking with chantix last cigarette was 1-16-18. * Medications:?TakingLisinopri l-hydroCHLOROthiazide 20-12.5 MG Tablet TAKE ONE TABLET BY MOUTH ONCE DAILY Levothyroxine Sodium 175 MCG Tablet Take 1 tablet by mouth once daily Atorvastatin Calcium 80 MG Tablet TAKE ONE TABLET BY MOUTH ONCE DAILY Taking Lisinopril-hydroCHLOROthiazide 20-12.5 MG Tablet TAKE ONE TABLET BY MOUTH ONCE DAILY Taking Levothyroxine Sodium 175 MCG Tablet Take 1 tablet by mouth once daily Taking Atorvastatin Calcium 80 MG Tablet TAKE ONE TABLET BY MOUTH ONCE DAILY Not-Taking/PRNoxyCODONE HCl 5 MG Tablet 1 tablet as needed Orally twice a day as neededTerbinafine HCl 250 MG Tablet 1 tablet Orally Once a dayIbuprofen 800 MG Tablet 1 tablet Orally Three times a dayGabapentin 300 MG Capsule 1 capsule Orally once a daytraMADol HCl 50 MG Tablet 1 tablet as needed Orally every 6 hrsMedication List reviewed and reconciled with the patientNot-Taking/PRN oxyCODONE HCl 5 MG Tablet 1 tablet as needed Orally twice a day as neededNot-Taking/PRN Terbinafine HCl 250 MG Tablet 1 tablet Orally Once a dayNot-Taking/PRN Ibuprofen 800 MG Tablet 1 tablet Orally Three times a dayNot-Taking/PRN Gabapentin 300 MG Capsule 1 capsule Orally once a dayNot-Taking/PRN traMADol HCl 50 MG Tablet 1 tablet as needed Orally every 6 hrsMedication List reviewed and reconciled with the patient * Allergies:?N.K.D.A.yes[Aller gies Verified] Objective: * Vitals:?Ht: 72, Wt:239, BMI: 32.41, BP:112/78, Wt-k.41. * ???Past Orders: ???Lab:Complete Blood Count Auto Diff (Order Date - 12/29/2023) (Collection Date - 12/29/2023) ? Value Reference Range ?White Blood Count 9.3 4. 8-10.8 - X10*3/uL ?Red Blood Count 4.98 4.60 -5.80 - X10*6/uL ?Hemoglobin 14.7 14.0-18.0 - g/dl ?Hematocrit 46.3 42.0-52.0 - % ?Mean Corpuscular Volume 93.0 80.0-98.0 - fL ?Mean Corpuscular Hemoglobin 29.5 27.0-33.0 - pg ?Mean Corpuscular HGB Conc 31.7 31.0-36.0 - g/dl ?Red Cell Distribution Width 13.8 11.0-16.0 - % ?Platelet Count 239 160-4 00 - X10*3/uL ?Mean Platelet Volume 9.4 9.4-12.4 - fL ?Neutrophils Percent Auto 53.2 45-73 - % ?Imm Gran Pct Auto 0.2 0. 0-0.4 - % ?Lymphocytes Percent Auto 31.0 20-40 - % ?Monocytes Percent Auto 9.7 2-11 - % ?Eosinophils Percent Auto 5.4 H 0-4 - % ?Basophils Percent Auto 0.5 0-2 - % ?NRBC Pct Auto 0.0 0.0-0. 2 - /100WBC ?Neutrophils Absolute Auto 4.9 2.0-8.3 - x10*3/uL ?Imm Gran Abs Auto 0.02 0. 00-0.03 - X10*3/uL ?Lymphocytes Absolute Auto 2.9 1.2-4.9 - X10*3/uL ?Monocytes Absolute Auto 0.9 0.1-1.2 - X10*3/uL ?Eosinophils Absolute Auto 0.5 H 0.0-0.4 - X10*3/uL ?Basophils Absolute Auto 0.1 0.0-0.2 - X10*3/uL ?NRBC Abs Auto 0.000 0.0-0. 012 - X10*3/uL ???Lab:Microalbumin, Random (Order Date - 12/29/2023) (Collection Date - 12/29/2023) ? Value Reference Range ?Creatinine Urine 115.98 - m g/dL ?Microalbumin Urine 5.0 - mg/L ?Microalbum Creatinine Ratio Ur 4.3 <30 - ug/mg cr ???Lab:Comprehensive [place]. P ladi Fast (Order Date - 12/29/2023) (Collection Date - 12/29/2023) ? Value Reference Range ?Sodium 142 135-145 - mmo l/L ?Bilirubin Total 0.4 0.0- 1.0 - mg/dL ?Aspartate Amino Transferase 38 H 5-37 - U/L ?Alanine Aminotransferase 44 H 0-40 - U/L ?Total Protein 7.3 6.5-8. 0 - g/dL ?Albumin Level 3.8 3.5-5. 0 - g/dL ?Alkaline Phosphatase 91 39-117 - U/L ?Potassium 4.0 3.3-5.1 - mmol/L ?Chloride 105 96-108 - mm ol/L ?Carbon Dioxide 29 22-29 - mmol/L ?Anion Gap 12 12-20 - ?Blood Urea Nitrogen 17 H 9-16 - mg/dL ?Creatinine 1.10 0.5-1.4 - mg/dL ?Estimated Glomerular Filt Rate > 60 - ?Glucose Fasting 122 H 60-9 9 - mg/dL ?Calcium 9.6 8.4-10.2 - m g/dL ???Lab:Hemoglobin A1c (Order Date - 12/29/2023) (Collection Date - 12/29/2023) ? Value Reference Range ?Hemoglobin A1c % 6.1 H <6. 0 - % ?Estimated Average Glucose 128 - mg/dL ???Lab:Liver Panel (Order 12/29/2023) (Collection Date - 12/29/2023) ? Value Reference Range ?Bilirubin Direct 0.1 0.0 -0.5 - mg/dL ???Lab:Lipid Panel (Order 12/29/2023) (Collection Date - 12/29/2023) ? Value Reference Range ?Triglycerides 237 H <150 - mg/dL ?Cholesterol 193 <200 - m g/dL ?LDL Cholesterol Calculated 107 H <100 - mg/dL ?HDL Cholesterol 39 L >40 - mg/dL * Examination: ???General Examination: ?GENERAL APPEARANCE:?well developed, well nourished, in no acute distress.?HEAD:?normocephalic, atraumatic.?EYES:?pupils equal, round, reactive to light and accommodation, sclera non-icteric.?EARS:?normal.?ORAL CAVITY:?mucosa moist.?THROAT:?clear.?NECK/THYROID:?neck supple, full range of motion, no cervical lymphadenopathy, no bruits.?SKIN:?warm and dry, no suspicious lesions , abnormal with multiple lesions on chest and back consistent with seborrheic keratosis.?HEART:?regular rate and rhythm, S1, S2 normal, no murmurs.?LUNGS:?clear to auscultation bilaterally.?ABDOMEN:?soft, nontender, nondistended, bowel sounds present, normal, no organomegaly , no masses palpable.?RECTAL EXAM:?normal tone, no external hemorrhoids, no masses palpable, prostate normal, stool guaiac negative.?MALE GENITOURINARY:?uncircumcised , no testicular mass , testes descended bilaterally.?EXTREMITIES:?no clubbing, cyanosis, or edema.?NEUROLOGIC:?nonfocal, motor strength normal upper and lower extremities, sensory exam intact.? Assessment: * Assessment: 1.?Essential hypertension - I10 (Primary)?2.?Acquired hypothyroidism - E03.9?3.?Smoker - F17.200?4.?Prediabetes - R73.09?5.?Seborrheic keratosis - L82.1?6.?Type 2 diabetes mellitus treated without insulin - E11.9?7.?Chronic obstructive pulmonary disease, unspecified COPD type - J44.9?8.?Pure hypercholesterolemia - E78.00?9.?Colon cancer screening - Z12.11?10.?Depression screening - Z13.31? Plan: * Treatment: 2.?Acquired hypothyroidism? Continue Levothyroxine Sodium Tablet, 175 MCG, Take 1 tablet by mouth once daily.?? Notes: tsh is good, at goal, will continue current regiment?? 3.?Smoker? Notes: not interested in quiitting?? 4.?Prediabetes? Notes: advised to lose weight and stay away from carbs, will continue to monitor?? 5.?Seborrheic keratosis? Notes: no need for any treatment?? 6.?Chronic obstructive pulmo nary disease, unspecified COPD type? Notes: stable, doing well?? 7.?Pure hypercholesterolemia ? Continue Atorvastatin Calcium Tablet, 80 MG, TAKE ONE TABLET BY MOUTH ONCE DAILY.?? Notes: needs to watch diet, will continue current regiment?? 8.?Colon cancer screening? Notes: guaiac negative?? 9.?Depression screening? Notes: negative screen?? * Procedure Codes:? * Preventive Medicine:? ??Counseling:?Smoking?Patient counseled on the dangers of tobacco use and urged to quit.?01/05/2024,?Patient Lifestyle Goals?Patient does not want to quit,?Treatment Goals?suggested patient , Cut down by 1 cigarette a week,?Self-Managment Goals?suggested patient, Make a plan to cut down number of cigarettes over time and set a date to work towards quitting,?Barriers?not will to quit,?Set a Quit Date?not will to quit.? * Follow Up:?6 Months * * Sign off status: Completed true * Provider:?Dhruv Duncan MD Date:?1 03/06/2023 Generated for Ceasar beltran/Jovon/Angel on:?04/26/2024 02:45 PM EST History and Physical Notes * HPI (History of Present Illness) Category Sub-Category Detail Notes Category Not es Symptom(s) patient is a 73 yo male here for review of recent labs and follow up of chronic issues. Depression Screening PHQ-9 Little inte rest or pleasure in doing things: Not at all Feeling down, depressed, or hopeless: No t at all Trouble falling or staying asleep, or sl eeping too much: Not at all Feeling tired or having little energy: N ot at all Poor appetite or overeating: Not at all Feeling bad about yourself o r that you are a failure, or have let yourself or your family down: Not at all Trouble concentrating on thi ngs, such as reading the newspaper or watching television: Not at all Moving or speaking so slowly that other people could have noticed; or the opposite, being so fidgety or restless that you have been moving around a lot more than usual: Not at all Thoughts that you would be b steffi off or of hurting yourself in some way: Not at all Total Score: 0 Interpretation and Intervention Depression Jamila goodwin Findings: Negative Follow-Up for Depression: : review of PH Q-9 found negative result, no follow-up needed SDOH Questions SDOH Questions In the past year have you been worried about losing housing?: No In the past year have you or any family members you live with been unable to get any of the following when it was really needed? Check all that apply:: None Fall Risk History Have you had any falls with injury i n the past year?: No Have you had two or more falls in the year?: No Communication Needs Communication Needs Does the patient have a hearing impairment: No Does the patient have a vision impairmen t?: Yes ?If yes, what is the vision impairment?: Glasses Does the patient have a cognition impair ment?: No Examination Category Sub-Category Detail Notes Category Not es General Examination GENERAL APPEARANCE: well dev eloped, well nourished, in no acute distress HEAD: normocephalic, atrau matic EYES: pupils equal, round, reactive to light and accommodation, sclera non- icteric EARS: normal THROAT: clear NECK/THYROID: neck supple, full ra nge of motion, no cervical lymphadenopathy, no bruits HEART: regular rate and rhy thm, S1, S2 normal, no murmurs LUNGS: clear to auscultatio n bilaterally ABDOMEN: soft, nontender, non distended, bowel sounds present, normal, no organomegaly , no masses palpable NEUROLOGIC: nonfocal, motor stre ngth normal upper and lower extremities, sensory exam intact SKIN: warm and dry, no murphy picious lesions , abnormal with multiple lesions on chest and back consistent with seborrheic keratosis EXTREMITIES: no clubbing, cyanosi s, or edema MALE GENITOURINARY: uncircumcised , no t esticular mass , testes descended bilaterally RECTAL EXAM: normal tone, no exte rnal hemorrhoids, no masses palpable, prostate normal, stool guaiac negative ORAL CAVITY: mucosa moist
== END 2024-04-26 13:00 | disposition home or self-care (01) ==
LOC: HO.CT 12:59
PROVIDERS: PCP Internal Medicine; Visit Provider Physician Assistant Medical
DX: Z12.2 Encounter for screening for malignant neoplasm of respiratory organs (principal); F17.210 Nicotine dependence, cigarettes, uncomplicated
CPT/HCPCS: 71271

== ENCOUNTER → 2024-04-26 13:01 | Outpatient (BNV) | payer MEDICARE, SELFPAY | PROVIDERS: PCP Internal Medicine; Visit Provider Nuclear Medicine | DX: F17.210 Nicotine dependence, cigarettes, uncomplicated (principal) | CPT/HCPCS: 71271 ==

== ENCOUNTER 2024-05-25 13:36 | Emergency (ER) | payer MEDICARE, SELFPAY ==
--- NOTE | ~2024-05-25 | XR_ITS ---
EXAMINATION: XR CHEST 1 VIEW HISTORY: pain COMPARISON: Correlation is made with a chest CT dated 04/26/2024. FINDINGS: A single AP portable view of the chest performed at 2:07 PM is submitted. There are bilateral calcified pleural plaques, consistent with prior asbestos exposure. No focal airspace opacities are identified. There is no pleural effusion, pneumothorax, or pulmonary vascular congestion. The heart is enlarged. There is degenerative disc disease of the spine. XR/XR chest 1V IMPRESSION: Cardiomegaly. Calcified pleural plaques consistent with prior asbestos exposure. No acute cardiopulmonary abnormality. Electronically signed by: Jaime Keys MD 05/25/2024 02:18 PM EDT
--- NOTE | 2024-05-25 13:38 | ECG_ITS ---
Test Reason : chest pain Blood Pressure : */* mmHG Vent. Rate : 106 BPM Atrial Rate : 106 BPM P-R Int : 144 ms QRS Dur : 138 ms QT Int : 380 ms P-R-T Axes : 7 8 33 degrees QTcB Int : 504 ms Sinus tachycardia Right bundle branch block Inferior infarct , age undetermined Abnormal ECG No previous ECGs available Referred By: Generic ED Physician Electronically Signed By: SADIE COSTA MD
[2024-05-25 13:46] VITALS: BP 102/83; PULSE 104; RESP 18; TEMP 36.7; O2SAT 93; BMI 31.1
--- NOTE | 2024-05-25 13:47 | ED.GENADULT ---
HPI - General Adult General Chief complaint: Chest Pain Stated complaint: Chest pain, SOB Time Seen by Provider: 05/25/24 15:59 Source: patient Mode of arrival: ambulatory Limitations: no limitations History of Present Illness ED Provider: Dr. Segundo Sr HPI narrative: 73-year-old male with a history of hypothyroidism, hyperlipidemia, hypertension who presents emergency department for evaluation of chest pain. Patient states that this morning at 08:00 hours he woke up from sleep and had a pressure-like sensation in the center of his chest. Patient states that the pain was 2/10 but was worse with breathing. Patient states that 2 weeks prior he had a similar chest pain that started in the morning at around 05:30 hours. He states that that pain lasted a proximally 6-7 hours and was worse with breathing. He states that that time however he did have a productive cough for 2-3 days. The patient states that he was smoked 1/2 pack of cigarettes per day for 40 years but stopped smoking 03/26/2024. He states that he does lift weights at a gym 3 times a week but does not do any aerobic exercises. He states he does get winded walking up 1 flight of stairs but this is unchanged from his baseline. He denied fever, chills, sore throat, cough. He denied diaphoresis, lightheadedness, jaw pain, neck pain, arm pain or back pain associated with his chest pain. The patient did have a screening CT scan of his chest done in March of 2024 which revealed no evidence for malignancy, the patient did have mild emphysematous changes as well as some calcified granulomas. Radiologist also noted moderate coronary calcifications. 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 He states he did wear mask at that time but otherwise did not have chronic/continual asbestos exposure. Related Data Allergies Allergy/AdvReac Type Severity Reaction Status Date / Time No Known Allergies Allergy Verified 05/25/24 13:47 Review of Systems Review of Systems: Yes all other systems are reviewed and are negative [facility] Past Medical History [facility] Narrative: Social history: The patient smoked 1/2 pack of cigarettes per day times 40 years. He denies alcohol use. He states he occasionally smokes marijuana. Medical History (Updated 05/25/24 @ 18:24 by Segundo Sr MD) Nicotine dependence, cigarettes, uncomplicated Hypothyroidism Hyperlipidemia Hypertension, essential, benign Surgical History (Updated 02/09/21 @ 14:04 by Luz Randhawa PA-C) History of back surgery History of right knee joint replacement History of colonoscopy Social History Social History (Updated 02/09/21 @ 14:06 by Luz Randhawa PA-C) Patient Tobacco Use Status: Current everyday Tobacco user Tobacco use type: Cigarette Smoked in Last 30 Days: No Advance Directives: Yes Advance Directives Information Provided: Yes Advance Directives on File: No Physical Exam ED Vital Signs: Vital Signs - 24 hr 05/25/24 13:46 05/25/24 16:39 05/25/24 18:15 Temperature 98.1 F 98.7 F 97.9 F Pulse Rate 104 H 98 108 H Respiratory Rate 18 16 16 Blood Pressure 102/83 91/60 105/72 Pulse Oximetry 93 92 92 Oxygen Delivery Method Room Air Room Air Room Air 05/25/24 18:37 Temperature 97.9 F Pulse Rate 108 H Respiratory Rate 16 Blood Pressure 105/72 Pulse Oximetry 92 Oxygen Delivery Method Room Air BMI result Body Mass Index 31.1 Vital signs revealed an elevated heart rate of 104 otherwise unremarkable Exam: General: Awake, alert in no distress Head: Normocephalic, atraumatic EENT: PERRL, Lids normal, sclera normal, conjunctiva normal, nose normal , ears normal, throat without erythema or exudates Neck: Supple, no adenopathy Lung: breath sounds symmetric, no wheezing, rales or rhonchi Chest: symmetric movement, nontender Heart: regular rate and rhythm, normal S1, S2 no murmurs or rubs Abdomen: soft, non-tender, nondistended, normal bowel sounds Back: no vertebral tenderness, no CVAT Extremities: no deformities, moves all extremities symmetrically Neuro: Awake, alert, oriented, normal speech, cranial nerves intact, moves all extremities symmetrically Psych: Pleasant, cooperative Course Course Course Narrative: This is a rapid medical exam performed by Breanna Fry PA-C. The patient is a 73-year-old male with a history of hyperlipidemia, hypertension, hypothyroidism, tobacco dependence who presents with chest pain. Patient states he developed chest pressure this morning that resolved on its own, associated sense of ?shallow breathing?. Patient was had a productive cough expelling brown sputum, the cough is intermittent waxes and wanes. On exam his lungs are clear. His vitals are stable. We will be screening basic labs cardiac enzymes EKG and chest x-ray and a viral panel. The patient is stable and can return to the waiting room pending his full medical assessment. Medical Decision Making Medical Decision Making [facility] Narrative: 73-year-old male with a history of hypothyroidism, hyperlipidemia, hypertension who presents emergency department for evaluation of chest pain which began this morning at 08:00 hours, pain was a pleuritic pain located in the sternal area of his chest, worse with breathing, 2/10 with no associated diaphoresis, lightheadedness, pain in the neck, jaw, arms or back. Patient was similar pleuritic chest pain 2 weeks prior which lasted for proximally 6 hours but was also associated with a 2-3 day URI/cough. Patient does have a 20 pack-year history of smoking and stopped smoking in March of 2024. Patient may have also had asbestos exposure in the past. Patient had a screening CT of the chest March 2024 with no evidence of malignancy, he did have mild episode as changes, calcified granulomas and moderate coronary artery calcification. Vital signs revealed an elevated heart rate. Physical examination was unremarkable. 16:42 Differential diagnosis: ?Includes but is not limited to myocardial infarction, myocardial ischemia, pneumonia, bronchitis, anemia, electrolyte abnormalities Course: 16:42 My interpretation patient's laboratory evaluation as follows: Elevated white blood count 74301. Normocytic anemia with an H&H of 12 and 38. Elevated BUN 20. Elevated glucose 134. Elevated bilirubin 1.2. COVID-19, influenza and RSV were negative. High sensitivity troponin I was detectable not elevated at 5.9. Repeat due at 17:00 hours. Twelve EKG was consistent with a right bundle-branch block otherwise was unremarkable. Chest x-ray revealed cardiomegaly with increased interstitial markings. Radiologist also noted calcified pleural plaques consistent with asbestosis exposure. 18:30 The patient was repeat troponin was 6.3 which is reassuring suggesting the patient did not have myocardial infarction myocardial injury is the cause of his chest pain. Patient was chest pain is more pleuritic. The patient's dyspnea on exertion may be secondary to cardiomyopathy verses early emphysema/COPD which was noted on his screening CT lung scan from 04/27/2024. I did discuss these possibilities with the patient and advised him to follow-up with his PCP Dr. Duncan for further evaluation, testing and treatment. Admission/Observation Consideration of admission/observation: Escalation of care including admission/observation considered (Yes) Lab Data MDM Lab Attestation statement: I reviewed the patient's lab results. 05/25/24 13:59 05/25/24 13:59 Labs: Lab Results 05/25/24 05/25/24 Range/Units 13:59 17:01 WBC 17.4 H (4.8-10.8) X10*3/uL RBC 4.41 L (4.60-5.80) X10*6/uL Hgb 12.8 L (14.0-18.0) g/dl Hct 38.2 L (42.0-52.0) % MCV 86.6 (80.0-98.0) fL MCH 29.0 (27.0-33.0) pg MCHC 33.5 (31.0-36.0) g/dl RDW 14.2 (11.0-16.0) % Plt Count 321 D (160-400) X10*3/uL MPV 8.6 L (9.4-12.4) fL Immature Gran % (Auto) 0.6 H (0.0-0.4) % Neut % (Auto) 76.8 H (45-73) % Lymph % (Auto) 12.0 L (20-40) % Camp % (Auto) 10.1 (2-11) % Eos % (Auto) 0.3 (0-4) % Baso % (Auto) 0.2 (0-2) % Lymph # (Auto) 2.1 (1.2-4.9) X10*3/uL Camp # (Auto) 1.8 H (0.1-1.2) X10*3/uL Eos # (Auto) 0.1 (0.0-0.4) X10*3/uL Baso # (Auto) 0.0 (0.0-0.2) X10*3/uL Abs Immat Gran (auto) 0.10 H (0.00-0.03) X10*3/uL Absolute Neuts (auto) 13.4 H (2.0-8.3) x10*3/uL Absolute Nucleated RBC 0.000 (0.0-0.012) X10*3/uL Nucleated RBC % (auto) 0.0 (0.0-0.2) /100WBC Smear Tech's Comments VERIFIED Sodium 137 (135-145) mmol/L Potassium 3.8 (3.3-5.1) mmol/L Chloride 103 (96-108) mmol/L Carbon Dioxide 28 (22-29) mmol/L Anion Gap 10 L (12-20) BUN 20 H (9-16) mg/dL Creatinine 1.06 (0.5-1.4) mg/dL Estim Creat Clear Calc 78.5 Estimated GFR > 60 Random Glucose 134 H (60-115) mg/dL Calcium 9.1 (8.4-10.2) mg/dL Magnesium 1.8 (1.6-2.6) mg/dL Total Bilirubin 1.2 H (0.0-1.0) mg/dL AST 23 (5-37) U/L ALT 22 (0-40) U/L Alkaline Phosphatase 75 (39-117) U/L Troponin I High Sens 5.9 6.3 (<3.5-35.0) ng/L Total Protein 7.3 (6.5-8.0) g/dL Albumin 3.4 L (3.5-5.0) g/dL Influenza Type A (PCR) NEGATIVE (Negative) Influenza Type B (PCR) NEGATIVE (Negative) RSV RNA Qual (PCR) NEGATIVE (Negative) SARS-CoV-2 RNA (RT-PCR) NEGATIVE (Negative) Independent Interpretation I performed an independent interpretation of an: EKG and Plain X-Ray Interpretation: My independent interpretation of the patient's 12 EKG done on 05/25/2024 at 13:40 hours is as follows: Sinus tachycardia with a rate of 106, normal MI interval, prolonged QRS interval 138 milliseconds, prolonged QTC interval of 504 milliseconds, right bundle-branch block, Q-wave in lead 3 and AVF, no ST segment elevation, no ST segment depression, no significant T-wave abnormalities. EKG is consistent with an old inferior wall VA. There is no old EKG for comparison. Radiology Impression Discussion of test interpretation with radiology: I have reviewed the radiologist's reading. Radiologist Impression: XR chest 1V IMPRESSION: Cardiomegaly. Calcified pleural plaques consistent with prior asbestos exposure. No acute cardiopulmonary abnormality. Electronically signed by: Jaime Keys MD 05/25/2024 02:18 PM EDT Chronic Conditions Patient?s care impacted by: Hypertension and Other (Hyperlipidemia) Discharge Plan Discharge Clinical Impression: Pleuritic chest pain Patient Disposition: Home, Self-Care Instructions: Pleurisy (ED) Additional Instructions: Your EKG did not show any evidence for a heart attack at this time. Your high sensitivity troponin I (marker of heart attack/heart damage) were detectable but not above the normal limit of 34 minutes. Your 1st troponin was 5.9 in your repeat 3 hours troponin was 6.3 which is very reassuring and suggests that you did not have a heart attack as the cause of your chest pain today. Your chest x-ray did not reveal any evidence of pneumonia. Your shortness of breath with exertion may be related to your heart were to early emphysema/COPD. I want you to follow up with Dr. Duncan. He should consider getting an echocardiogram of your heart and possibly referring you to a event decorator or treating you for early COPD/emphysema. Continue taking medications as prescribed by your providers Follow-up with your doctor in 2 days. Please return to the emergency department if your symptoms get worse or if you develop any symptoms that are concerning to you. Below are the results of your CT scan of your lungs from 04/27/2024. The CAT scan demonstrated that ?mild emphysema and asbestos exposure ? (calcified pleural plaques). The CAT scan was done as a screening test for cancer and the radiologist did not see any cancer. CT lung cancer screening (LDCT) Comparison: CT/REG/SR - CT LUNG SCREENING - 04/23/23 16:26 EST Technique: Axial CT images of the chest using low-dose technique. Referring provider counseled the patient on shared decision-making for LDCT screening. Additional counseling was provided on smoking cessation. Effective radiation dose total: DLP 57.7 mGycm, CTDIvol 1.8 mGy. Findings: Lung: Mild emphysema. Calcified granulomas. Coronary artery calcifications: Moderate Limited upper abdomen: Limited evaluation of the right renal cyst. Other: There are calcified pleural plaques. Impression: LungRADS 1: Negative exam. Continue annual screening with low dose Chest CT in 12 months. ##L1# Evidence of previous asbestos exposure. Category 1: Normal; continue annual screening Category 2: Benign appearance or behavior, continue annual screening Category 3: Probably benign, [address] recommended Category 4A: Suspicious, [address] recommended; may consider PET/CT Category 4B: Suspicious, Additional diagnostics and/or tissue sampling recommended Category 4X: Suspicious, Additional diagnostics and/or tissue sampling recommended Category 0: Recalls (incomplete screen due to Incomplete coverage, Noise, Respiratory motion, Expiration, Obscured by acute abnormality) This document has been electronically signed by: Ester Aguilar MD on 04/27/2024 12:49:07 Dictated By: sEter Aguilar MD Interventions: ED Discharge Assessment Last Done: 05/25/24 18:37 Discharge Date/Time: 05/25/24 18:39 Print Language: Tajik
[2024-05-25 14:14] LABS: Basophils Percent Auto 0.2 % (0-2); Eosinophils Absolute Auto 0.1 X10*3/uL (0.0-0.4); Eosinophils Percent Auto 0.3 % (0-4); Hematocrit 38.2 % (42.0-52.0); Hemoglobin 12.8 g/dl (14.0-18.0); Imm Gran Pct Auto 0.6 % (0.0-0.4); Lymphocytes Absolute Auto 2.1 X10*3/uL (1.2-4.9); MANUAL DIFF FLAG SCAN; Mean Corpuscular HGB Conc 33.5 g/dl (31.0-36.0); Mean Corpuscular Volume 86.6 fL (80.0-98.0); Mean Platelet Volume 8.6 fL (9.4-12.4); Monocytes Absolute Auto 1.8 X10*3/uL (0.1-1.2); Monocytes Percent Auto 10.1 % (2-11); Neutrophils Absolute Auto 13.4 x10*3/uL (2.0-8.3); Neutrophils Percent Auto 76.8 % (45-73); Platelet Count 321 X10*3/uL (160-400); Red Blood Count 4.41 X10*6/uL (4.60-5.80); Red Cell Distribution Width 14.2 % (11.0-16.0); SCAN SMEAR FLAG 1; White Blood Count 17.4 X10*3/uL (4.8-10.8)
[2024-05-25 14:33] LABS: Alanine Aminotransferase 22 U/L (0-40); Albumin Level 3.4 g/dL (3.5-5.0); Alkaline Phosphatase 75 U/L (39-117); Anion Gap 10 (12-20); Aspartate Amino Transferase 23 U/L (5-37); Bilirubin Total 1.2 mg/dL (0.0-1.0); Blood Urea Nitrogen 20 mg/dL (9-16); Calcium 9.1 mg/dL (8.4-10.2); Carbon Dioxide 28 mmol/L (22-29); Chloride 103 mmol/L (96-108); Creatinine Clr Calc Pharmacy 78.5; Estimated Glomerular Filt Rate > 60; Glucose Random 134 mg/dL (60-115); Magnesium 1.8 mg/dL (1.6-2.6); Potassium 3.8 mmol/L (3.3-5.1); Sodium 137 mmol/L (135-145); Total Protein 7.3 g/dL (6.5-8.0)
[2024-05-25 14:40] LABS: SLIDE REVIEW VERIFIED; Troponin-I High Sensitivity 5.9 ng/L (<3.5-35.0)
[2024-05-25 14:51] LABS: Influenza A PCR NEGATIVE (Negative); Influenza B PCR NEGATIVE (Negative); Resp Syncy Virus RNA Qual PCR NEGATIVE (Negative); SARS COV2 PCR INHOUSE NEGATIVE (Negative)
--- NOTE | 2024-05-25 16:30 | PC.NURSE ---
Provider at the bedside. Plan of care discussed. 1st troponin negative and plan for 2nd troponin at 1700
[2024-05-25 16:39] VITALS: BP 91/60; PULSE 98; RESP 16; TEMP 37.1; O2SAT 92
[2024-05-25 17:24] LABS: Troponin-I High Sensitivity 6.3 ng/L (<3.5-35.0)
[2024-05-25 18:15] VITALS: BP 105/72; PULSE 108; RESP 16; TEMP 36.6; O2SAT 92
[2024-05-25 18:37] VITALS: BP 105/72; PULSE 108; RESP 16; TEMP 36.6; O2SAT 92
== END 2024-05-25 18:39 | disposition home or self-care (01) ==
PROVIDERS: Physician Assistant Medical; Emergency Provider Emergency Medicine Emergency Medical Services; PCP Internal Medicine
DX: R07.81 Pleurodynia (principal); R07.9 Chest pain, unspecified; E03.9 Hypothyroidism, unspecified; I10 Essential (primary) hypertension; E78.5 Hyperlipidemia, unspecified; Z03.818 Encounter for observation for suspected exposure to other biological agents ruled out
CPT/HCPCS: 0241U; 36415; 71045; 80053; 83735; 84484; 85025; 93005; 99283; 99285

== ENCOUNTER → 2024-05-25 13:38 | Outpatient (BNV) | payer MEDICARE, SELFPAY | PROVIDERS: Emergency Provider Emergency Medicine Emergency Medical Services; PCP Internal Medicine; Visit Provider Internal Medicine Cardiovascular Disease | DX: I45.10 Unspecified right bundle-branch block (principal); R00.0 Tachycardia, unspecified | CPT/HCPCS: 93010 ==

== ENCOUNTER → 2024-05-25 13:51 | Outpatient (BNV) | payer MEDICARE, SELFPAY | PROVIDERS: PCP Internal Medicine; Visit Provider Radiology Diagnostic Radiology | DX: J92.9 Pleural plaque without asbestos (principal); I51.7 Cardiomegaly | CPT/HCPCS: 71045 ==

== ENCOUNTER 2024-06-28 10:53 | Outpatient (REF) | payer MEDICARE, SELFPAY ==
[2024-06-28 10:57] LABS: MANUAL DIFF FLAG NO
[2024-06-28 11:11] LABS: Basophils Percent Auto 0.3 % (0-2); Eosinophils Absolute Auto 0.5 X10*3/uL (0.0-0.4); Eosinophils Percent Auto 4.9 % (0-4); Hematocrit 41.3 % (42.0-52.0); Hemoglobin 13.2 g/dl (14.0-18.0); Imm Gran Abs Auto 0.04 X10*3/uL (0.00-0.03); Imm Gran Pct Auto 0.4 % (0.0-0.4); Lymphocytes Absolute Auto 2.9 X10*3/uL (1.2-4.9); Lymphocytes Percent Auto 29.3 % (20-40); Mean Corpuscular Hemoglobin 28.3 pg (27.0-33.0); Mean Corpuscular Volume 88.6 fL (80.0-98.0); Mean Platelet Volume 9.5 fL (9.4-12.4); Monocytes Absolute Auto 0.9 X10*3/uL (0.1-1.2); Monocytes Percent Auto 9.5 % (2-11); Neutrophils Absolute Auto 5.5 x10*3/uL (2.0-8.3); Neutrophils Percent Auto 55.6 % (45-73); Platelet Count 246 X10*3/uL (160-400); Red Blood Count 4.66 X10*6/uL (4.60-5.80); Red Cell Distribution Width 14.7 % (11.0-16.0); White Blood Count 9.8 X10*3/uL (4.8-10.8)
[2024-06-28 11:25] LABS: Alanine Aminotransferase 22 U/L (0-40); Albumin Level 3.6 g/dL (3.5-5.0); Alkaline Phosphatase 84 U/L (39-117); Aspartate Amino Transferase 31 U/L (5-37); Bilirubin Direct 0.2 mg/dL (0.0-0.5); Bilirubin Total 0.6 mg/dL (0.0-1.0); Cholesterol 185 mg/dL (<200); Glucose Fasting 132 mg/dL (60-99); HDL Cholesterol 38 mg/dL (>40); LDL Cholesterol Calculated 103 mg/dL (<100); Total Protein 7.3 g/dL (6.5-8.0); Triglycerides 223 mg/dL (<150)
[2024-06-28 11:46] LABS: Estimated Average Glucose 148 mg/dL; Hemoglobin A1C 300.8072 umol/L; Hemoglobin A1c % 6.8 % (<6.0); Total Hemoglobin (HGBA1C) 5906.4468 umol/L
[2024-06-28 12:23] LABS: Reflex LDLD? No
== END 2024-06-28 10:54 | disposition home or self-care (01) ==
LOC: HO.LNP 10:53
PROVIDERS: Visit Provider Internal Medicine
DX: E78.00 Pure hypercholesterolemia, unspecified (principal); E11.9 Type 2 diabetes mellitus without complications
CPT/HCPCS: 80061; 80076; 82947; 83036; 85025

== ENCOUNTER 2024-09-20 10:23 | Outpatient (AMB) | payer MEDICARE, SELFPAY ==
[2024-09-20 10:25] VITALS: BP 114/60; PULSE 77; O2SAT 94; BMI 31.8
--- NOTE | 2024-09-20 10:25 | MHC.OFFVIS ---
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 The patient is a 74-year-old gentleman presenting with worsening respiratory symptoms. The patient is a former smoker. He had evaluation in urgent care and in the ER because of worsening shortness of breath with activity. The patient had a full workup. It included a CT scan of the chest. I did personally reviewed with him. The patient did have evidence of asbestos related lung disease with asbestos plaques and also some mild degree of emphysema. The patient also underwent blood work demonstrating significant eosinophilia. He was given a short-acting beta agonist inhaler although he has not seen any significant improvement. He continues to have significant dyspnea on exertion even with minimal activity. During the visit we did go for brief walking oximetry. It was apparent that he does have a drop foot. He explained that he had an issue with his back and had surgery recently. Seems to be healing well. His oxygen did drop though to about 90% with activity. He does have clubbing of his nail beds. It is unclear based on the CAT scan the degree of hypoxia that he has his out of proportion to the findings. Will go ahead and optimize her respiratory therapy by placing him on Trelegy. He can try the 4 month. Will request pulmonary function studies. In the meantime he should have a cardiac workup specially since did degree of hypoxia is out of proportion to the findings on the CAT scan his underlying lung disease. As far as the asbestos began only remember 1 event where he was cleaning out his house and he removed significant amount of asbestos without a good protective gear. It must have been a lot of asbestos specially since left a significant amount of burden of asbestos plaques in his lungs. 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 Denies any direct contact with asbestos at that point. At this point he will continue with the lung cancer screening program. Will go ahead and request his PFTs and have him follow-up and will discuss the findings then. Would also recommend him getting an echocardiogram which he will probably have dome when he gets evaluated from cardiology. In the meantime will request an overnight oximetry to assess his oxygen requirements at nighttime. [facility] Medical History (Updated 09/20/24 @ 22:39 by Delon Dent MD) Hypoxia Dyspnea Asthma-COPD overlap syndrome Nicotine dependence, cigarettes, uncomplicated Hypothyroidism Hyperlipidemia Hypertension, essential, benign Surgical History (Updated 02/09/21 @ 14:04 by Luz Randhawa PA-C) History of back surgery History of right knee joint replacement History of colonoscopy Social History Patient Tobacco Use Status: Current everyday Tobacco user Tobacco use type: Cigarette Review of Systems Const Denies fever(s) Eyes Reports no additional complaints and Denies itchy eyes ENT Reports nasal congestion Card Denies chest pain and Reports dyspnea on exertion Resp Reports cough and Reports dyspnea on exertion GI Reports no additional complaints Musc Reports no additional complaints Skin/Breast Denies rash Neuro Reports no additional complaints Endo Reports no additional complaints Patrick/Lymph Denies easy bleeding Aller/Immun Denies itchy eyes Physical Exam Vital Signs: Last Vital Signs Pulse 77 09/20/24 10:25 BP 114/60 09/20/24 10:25 Pulse Ox 94 09/20/24 10:25 Oxygen Delivery Method Room Air 09/20/24 10:25 BMI result Body Mass Index 31.8 Const General: comfortable HEENT Head: Yes normocephalic Eyes General: appearance normal, both eyes and all related structures Neck Neck: Yes supple Chest Chest palpation & inspection: normal inspection of the chest Resp Effort & Inspection: normal respiratory effort Auscultation: diminished lung sounds Cardio Heart sounds: S1 normal heart sound present and S2 normal heart sound present GI Palpation (GI): Soft to palpation Skin General skin exam: no rashes or lesions noted Extrem General: Yes no clubbing, cyanosis or edema Assessment & Plan Assessment & Plan (1) Asthma-COPD overlap syndrome: Code(s): J44.89 - Other specified chronic obstructive pulmonary disease Category: Medical (2) Dyspnea: Code(s): R06.00 - Dyspnea, unspecified Category: Medical Qualifiers: Dyspnea type: dyspnea on exertion Qualified Code(s): R06.09 - Other forms of dyspnea (3) Hypoxia: Code(s): R09.02 - Hypoxemia Category: Medical Plan PFTs start Trelegy KIRILL as needed Overnight oximetry Cardiology eval, ECHO would be helpful F/U 2-3 months Orders: Orders Overnight Pulse Oximetry Today J44.89 - Other specified chronic obstructive pulmonary disease PFT pulmonary function test Today J44.89 - Other specified chronic obstructive pulmonary disease Medications: New njzbfouevzf-kjoppjnuk-qhawpgjn 200-62.5-25 mcg (Trelegy Ellipta) 1 inh inhalation DAILY 60 ea 12RF 30 days Coding Level of Care Code New Pt Level 4 (11794) Diagnoses Asthma-COPD overlap syndrome J44.89 Dyspnea on exertion R06.09 Dyspnea type: dyspnea on exertion Hypoxia R09.02 Time Spent (min) 40
--- OUTSIDE RECORDS SUMMARY | 2024-09-20 11:22 | XMS_ITS | Patient Health Record ---
Author Organization Dhruv Duncan MD Address [address] [place], [place] [id number] Care Team Providers Care Lease Operator Name Role Phone Dhruv Duncan Primary Care Provider [phone] Allergies No Known Allergies Results Component Value Reference Range Notes Hemoglobin A1c Reviewed date:10/03/2023 10:42:42 AM Interpretation: Performing Lab: Notes/Report: Hemoglobin A1c 6.4 Hemoglobin A1c Reviewed date:06/01/2024 01:11:54 PM Interpretation: Performing Lab: Notes/Report: Hemoglobin A1c 6.5 Liver Panel Reviewed date:06/28/2024 12:43:59 PM Interpretation: Performing Lab:[facility], [address] [place] [phone] Notes/Report: Bilirubin Total 0.6 0.0-1.0 mg/dL Bilirubin Direct 0.2 0.0-0.5 mg/dL Aspartate Amino Transferase 31 5-37 U/L Alanine Aminotransferase 22 0-40 U/L Total Protein 7.3 6.5-8.0 g/dL Albumin Level 3.6 3.5-5.0 g/dL Alkaline Phosphatase 84 39-117 U/L Glucose Fasting Reviewed date:06/28/2024 12:42:15 PM Interpretation: Performing Lab:[facility], [address] [place] [phone] Notes/Report: Glucose Fasting 132 60-99 mg/dL A fasting glucose of 126 mg/dl or greater on more than one occasion is considered diagnostic of diabetes. Lipid Panel with Reflex Reviewed date:06/28/2024 12:44:26 PM Interpretation: Performing Lab:[facility], [address] [place] [phone] Notes/Report: Triglycerides 223 <150 mg/dL Desirable Triglyceride: [...] A1c Reviewed date:06/28/2024 12:42:07 PM Interpretation: Performing Lab:[facility], [address] [place] [phone] Notes/Report: Hemoglobin A1c % 6.8 <6.0 % [...] average glucose, using the formula of the W1E-Ydpwnjj Average Glucose study (ADAG), Diabetes Care, Vol.31,#8, Oct. 2007 Complete Blood Count Auto Di ff Reviewed date:06/28/2024 05:12:28 PM Interpretation: Performing Lab:[facility], [address] [place] [phone] Notes/Report: White Blood Count 9.8 4.8-10.8 X10*3/uL [...] 0.0-0.2 /100WBC Neutrophils Absolute Auto 5.5 2.0-8.3 x10*3/uL Imm Gran Abs Auto 0.04 0.00-0.03 X10*3/uL Lymphocytes Absolute Auto 2.9 1.2-4.9 X10*3/uL Monocytes Absolute Auto 0.9 0.1-1.2 X10*3/uL Eosinophils Absolute Auto 0.5 0.0-0.4 X10*3/uL Basophils Absolute Auto 0.0 0.0-0.2 X10*3/uL NRBC Abs Auto 0.000 0.0-0.012 X10*3/uL Glucose, finger stick Reviewed date:10/03/2023 10:38:44 AM Interpretation: Performing Lab: Notes/Report: Value 135 Complete Blood Count Auto Di ff Reviewed date:12/29/2023 06:19:04 PM Interpretation: Performing Lab:[facility], [address] [place] [phone] Notes/Report: White Blood Count 9.3 4.8-10.8 X10*3/uL Red Blood Count 4.98 4.60-5.80 X10*6/uL Hemoglobin 14.7 14.0-18.0 g/dl Hematocrit 46.3 42.0-52.0 % Mean Corpuscular Volume 93.0 80.0-98.0 fL Mean Corpuscular Hemoglobin 29.5 27.0-33.0 pg Mean Corpuscular HGB Conc 31.7 31.0-36.0 g/dl Red Cell Distribution Width 13.8 11.0-16.0 % Platelet Count 239 160-400 X10*3/uL Mean Platelet Volume 9.4 9.4-12.4 fL Neutrophils Percent Auto 53.2 45-73 % Imm Gran Pct Auto 0.2 0.0-0.4 % Lymphocytes Percent Auto 31.0 20-40 % Monocytes Percent Auto 9.7 2-11 % Eosinophils Percent Auto 5.4 0-4 % Basophils Percent Auto 0.5 0-2 % NRBC Pct Auto 0.0 0.0-0.2 /100WBC Neutrophils Absolute Auto 4.9 2.0-8.3 x10*3/uL Imm Gran Abs Auto 0.02 0.00-0.03 X10*3/uL Lymphocytes Absolute Auto 2.9 1.2-4.9 X10*3/uL Monocytes Absolute Auto 0.9 0.1-1.2 X10*3/uL Eosinophils Absolute Auto 0.5 0.0-0.4 X10*3/uL Basophils Absolute Auto 0.1 0.0-0.2 X10*3/uL NRBC Abs Auto 0.000 0.0-0.012 X10*3/uL Comprehensive [place]. Panel Fa st Reviewed date:12/29/2023 06:20:38 PM Interpretation: Performing Lab:[facility], [address] [place] [phone] Notes/Report: Sodium 142 135-145 mmol/L Potassium 4.0 3.3-5.1 mmol/L Chloride 105 96-108 mmol/L Carbon Dioxide 29 22-29 mmol/L Anion Gap 12 12-20 Blood Urea Nitrogen 17 9-16 mg/dL Creatinine 1.10 0.5-1.4 mg/dL Estimated Glomerular Filt Rate > 60 NOTE: For -Maltese individuals, multiply the result by 1.210. Chronic Kidney Disease: Estimated GFR < 60 mL/min/1.73m2 Severe Kidney Disease: Estimated GFR < 15 mL/min/1.73m2 Glucose Fasting 122 60-99 mg/dL A fasting glucose from 100-125 mg/dl is considered impaired (pre-diabetes). Calcium 9.6 8.4-10.2 mg/dL Bilirubin Total 0.4 0.0-1.0 mg/dL Aspartate Amino Transferase 38 5-37 U/L Alanine Aminotransferase 44 0-40 U/L Total Protein 7.3 6.5-8.0 g/dL Albumin Level 3.8 3.5-5.0 g/dL Alkaline Phosphatase 91 39-117 U/L Liver Panel Reviewed date:12/29/2023 12:57:07 PM Interpretation: Performing Lab:[facility], [address] [place] [phone] Notes/Report: Bilirubin Direct 0.1 0.0-0.5 mg/dL Lipid Panel Reviewed date:12/29/2023 12:53:33 PM Interpretation: Performing Lab:[facility], [address] [place] [phone] Notes/Report: Triglycerides 237 <150 mg/dL Desirable Triglyceride: less than 150 mg/dL Borderline High Triglyceride 150-199 mg/dL High Triglyceride: 200-499 mg/dL Very High Triglyceride: greater than or equal to 5OO mg/dL Cholesterol 193 <200 mg/dL Desirable Cholesterol: less than 200 mg/dL Borderline High Cholesterol: 200-239 mg/dL High Cholesterol: greater than 239 mg/dL LDL Cholesterol Calculated 107 <100 mg/dL Desirable LDL: less than 100 mg/dL Near Optimal/Above Optimal LDL: 110-129 mg/dL Borderline High LDL: 130-159 mg/dL High LDL: 160-189 mg/dL Very High LDL: greater than or equal to 190 mg/dL HDL Cholesterol 39 >40 mg/dL Desirable HDL: greater than 40 mg/dL Note: This HDL assay may give artificially low results in patients with liver disease. PSA,Total (Free>4and<10) Reviewed date:12/29/2023 12:57:15 PM Interpretation: Performing Lab:[facility], [address] [place] [phone] Notes/Report: PSA,Total (Free>4and<10) 0.59 0.00-4.00 ng/mL A Free PSA was not performed: The percentage of Free PSA can be used to enhance the differentiation of prostate cancer from benign prostatic disease in subjects whose PSA levels are between 4.0 and 10.0 ng/mL. For subjects whose PSA levels are below 4.0 or above 10.0 ng/mL, the risk of prostate cancer is determined on the basis of the PSA alone. Therefore the % Free PSA is recommended only for those subjects whose PSA levels are between 4.0 and 10.0 ng/mL. PSA methodology: [place] Alinity i Chemiluminescent Microparticle Immunoassay (CMIA) TSH reflex Free T4 Reviewed date:12/29/2023 12:51:16 PM Interpretation: Performing Lab:[address] [phone] Notes/Report: TSH reflex Free T4 3.46 0.32-4.0 uIU/mL Microalbumin, Random Reviewed date:12/29/2023 06:17:47 PM Interpretation: Performing Lab:[facility], [address] [place] [phone] Notes/Report: Creatinine Urine 115.98 Microalbumin Urine 5.0 Microalbum/Creatinine Ratio Ur 4.3 <30 ug/mg cr Albumin/Creatinine Ratio Reference Ranges: Normal: < 30 ug/mg creatinine Microalbuminuria: 30 - 300 ug/mg creatinine Clinical Albuminuria: > 300 ug/mg creatinine Hemoglobin A1c Reviewed date:12/29/2023 12:37:24 PM Interpretation: Performing Lab:[address] [phone] Notes/Report: Hemoglobin A1c % 6.1 <6.0 % Hemoglobin A1C Reference Range Adults: 4.8 - 6.0 % Non diabetic: < 6.0 % Goal: < 7.0 % Additional Action Suggested: > 8.0 % Note: Hemoglobin A1c results are invalid for patients with abnormal amounts of HbF. Blood transfusions may impact the HbA1c concentration in the patient sample. Estimated Average Glucose 128 eAG = Estimated average glucose which is %A1C expressed as average glucose, using the formula of the J9C-Zairtgq Average Glucose study (ADAG), Diabetes Care, Vol.31,#8, 2007 UA ClnCatch+Micro w/rflx Cul t Reviewed date:12/29/2023 12:58:01 PM Interpretation: Performing Lab:[facility], [address] [place] [phone] Notes/Report: [id number] Urine, Clean Catch Color Urine Yellow Appearance Urine Clear PH 5.5 5.0-9.0 Glucose Urine UA Negative Negative mg/dL Urine Blood Negative Negative Specific [place] - Urine 1.020 1.005-1.025 Urine Protein Negative Neg-Trace mg/dL Urine Ketones Negative Negative mg/dL Nitrite Urine Negative Negative Leukocyte Esterase Urine Negative Negative RBC Urine 0-2 0-2 /HPF WBC Urine 0-5 0-5 /HPF Squamous Epithelial Cell Urine 0-2 0-2 /HPF Bacteria Urine None Seen None Seen Hyaline Casts Urine 0-2 0-2 /LPF Glucose, finger stick Reviewed date:06/01/2024 01:05:07 PM Interpretation: Performing Lab: Notes/Report: Value 190 CT lung screening Reviewed date:04/27/2024 12:59:51 PM Interpretation: Performing Lab: Notes/Report: [address] [address] [address] Scan Report Signed Patient: Ortega Lange MR#: [id number] : 1950 Acct:[id number] Age/Sex: 73 / M ADM Date: 04/26/24 Loc: HO.CT Attending Dr: Luz Randhawa PA-C Ordering Physician: Luz Randhawa PA-C Date of Service: 04/26/24 Procedure(s): CT lung screening Accession Number(s): [id number] cc: Dhruv Duncan MD; Luz Randhawa PA-C Report Number: [id number]: Total DLP = 68.00 mGy-cm CLINICAL HISTORY: F17.210 - Nicotine dependence, cigarettes, uncomplicated CT lung cancer screening (LDCT) Comparison: CT/REG/SR - CT LUNG SCREENING - 04/23/23 16:26 EST Technique: Axial CT images of the chest using low-dose technique. Referring provider counseled the patient on shared decision-making for LDCT screening. Additional counseling was provided on smoking cessation. Effective radiation dose total: DLP 57.7 mGycm, CTDIvol 1.8 mGy. Findings: Lung: Mild emphysema. Calcified granulomas. Coronary artery calcifications: Moderate Limited upper abdomen: Limited evaluation of the right renal cyst. Other: There are calcified pleural plaques. Impression: LungRADS 1: Negative exam. Continue annual screening with low dose Chest CT in 12 months. ##L1# Evidence of previous asbestos exposure. Category 1: Normal; continue annual screening Category 2: Benign appearance or behavior, continue annual screening Category 3: Probably benign, [address] recommended Category 4A: Suspicious, [address] recommended; may consider PET/CT Category 4B: Suspicious, Additional diagnostics and/or tissue sampling recommended Category 4X: Suspicious, Additional diagnostics and/or tissue sampling recommended Category 0: Recalls (incomplete screen due to Incomplete coverage, Noise, Respiratory motion, Expiration, Obscured by acute abnormality) This document has been electronically signed by: Ester Aguilar MD on 04/27/2024 12:49:07 Dictated By: Ester Aguilar MD Signed By: <Electronically signed by Ester Aguilar MD in OV> 04/27/24 1250 DD/ 1249 TD/TT: 04/27/24 1249 Foreign Broadcast Specialist: [place] [address] CT Scan Report Signed Patient: Ortega Lange MR#: [id number] : 1950 Acct:[id number] Age/Sex: 73 / M ADM Date: 04/26/24 Loc: .CT Attending Dr: Luz Randhawa PA-C Ordering Physician: Luz Randhawa PA-C Date of Service: 04/26/24 Procedure(s): CT josie g screening Accession Number(s): [id number] cc: Dhruv Duncan MD; Luz Randhawa PA-C Report Number: [id number]: Total DLP = 68.00 mGy-cm CLINICAL HISTORY: F17.210 - Nicotine dependence, cigarettes, uncomplicated CT lung cancer screening (LDCT) Comparison: CT/REG/S R - CT LUNG SCREENING - 04/23/23 16:26 EST Technique: Axial CT images of t he chest using low-dose technique. Referring provider counseled the patien t on shared decision-making for LDCT screening. Additional counselin g was provided on smoking cessation. Effective radiation dose total: DLP 57.7 mGycm, CTDIvol 1.8 mGy. Findings: Lung: Mild emphysema . Calcified granulomas. Coronary artery calcifications: Moderate Limited upper abdome n: Limited evaluation of the right renal cyst. Other: There are calcified pleural plaques. Impression: LungRADS 1: Negative exam. Continue annual screening with low dose Chest CT in 12 months. ##L1# Evidence of previous asbestos exposure. ___ Category 1: Normal; continue annual screening Category 2: Benign appearance or behavior, continue annual screening Category 3: Probably benign, [address] recommended Category 4A: Suspicious, [address] recommended; may consider PET/CT Category 4B: Suspicious, Additional diagnostics and/or tissue sampling recommended Category 4X: Suspicious, Additional diagnostics and/or tissue sampling recommended Category 0: Recalls (incomplete screen due to Incomplete coverage, Noise, Respiratory motion, Expiration, Obscured by acute abnormality) This document has be en electronically signed by: Ester Aguilar MD on 04/27/2024 12:49:07 Dictated By: Ester Aguilar MD Signed By: <Electronically signed by Ester Aguilar MD in OV> 04/27/24 1250 DD/ 1249 TD/TT: 04/27/24 1249 Foreign Broadcast Specialist: Complete Blood Count Auto Di ff Reviewed date:05/27/2024 07:16:18 AM Interpretation: Performing Lab:[facility], [address] [place] [phone] Notes/Report: White Blood Count 17.4 4.8-10.8 X10*3/uL Red Blood Count 4.41 4.60-5.80 X10*6/uL Hemoglobin 12.8 14.0-18.0 g/dl Hematocrit 38.2 42.0-52.0 % Mean Corpuscular Volume 86.6 80.0-98.0 fL Mean Corpuscular Hemoglobin 29.0 27.0-33.0 pg Mean Corpuscular HGB Conc 33.5 31.0-36.0 g/dl Red Cell Distribution Width 14.2 11.0-16.0 % Platelet Count 321 160-400 X10*3/uL Mean Platelet Volume 8.6 9.4-12.4 fL Neutrophils Percent Auto 76.8 45-73 % Imm Gran Pct Auto 0.6 0.0-0.4 % Lymphocytes Percent Auto 12.0 20-40 % Monocytes Percent Auto 10.1 2-11 % Eosinophils Percent Auto 0.3 0-4 % Basophils Percent Auto 0.2 0-2 % NRBC Pct Auto 0.0 0.0-0.2 /100WBC Neutrophils Absolute Auto 13.4 2.0-8.3 x10*3/uL Imm Gran Abs Auto 0.10 0.00-0.03 X10*3/uL Lymphocytes Absolute Auto 2.1 1.2-4.9 X10*3/uL Monocytes Absolute Auto 1.8 0.1-1.2 X10*3/uL Eosinophils Absolute Auto 0.1 0.0-0.4 X10*3/uL Basophils Absolute Auto 0.0 0.0-0.2 X10*3/uL NRBC Abs Auto 0.000 0.0-0.012 X10*3/uL White Blood Count 17.4 4.8-10.8 X10*3/uL Red Blood Count 4.41 4.60-5.80 X10*6/uL Hemoglobin 12.8 14.0-18.0 g/dl Hematocrit 38.2 42.0-52.0 % Mean Corpuscular Volume 86.6 80.0-98.0 fL Mean Corpuscular Hemoglobin 29.0 27.0-33.0 pg Mean Corpuscular HGB Conc 33.5 31.0-36.0 g/dl Red Cell Distribution Width 14.2 11.0-16.0 % Platelet Count 321 160-400 X10*3/uL Mean Platelet Volume 8.6 9.4-12.4 fL Neutrophils Percent Auto 76.8 45-73 % Imm Gran Pct Auto 0.6 0.0-0.4 % Lymphocytes Percent Auto 12.0 20-40 % Monocytes Percent Auto 10.1 2-11 % Eosinophils Percent Auto 0.3 0-4 % Basophils Percent Auto 0.2 0-2 % NRBC Pct Auto 0.0 0.0-0.2 /100WBC Neutrophils Absolute Auto 13.4 2.0-8.3 x10*3/uL Imm Gran Abs Auto 0.10 0.00-0.03 X10*3/uL Lymphocytes Absolute Auto 2.1 1.2-4.9 X10*3/uL Monocytes Absolute Auto 1.8 0.1-1.2 X10*3/uL Eosinophils Absolute Auto 0.1 0.0-0.4 X10*3/uL Basophils Absolute Auto 0.0 0.0-0.2 X10*3/uL NRBC Abs Auto 0.000 0.0-0.012 X10*3/uL C ORRECTED REPORT C ORRECTED REPORT Comprehensive Met. Panel Reviewed date:05/25/2024 08:06:03 PM Interpretation: Performing Lab:[facility], [address] [place] [phone] Notes/Report: Sodium 137 135-145 mmol/L Potassium 3.8 3.3-5.1 mmol/L Chloride 103 96-108 mmol/L Carbon Dioxide 28 22-29 mmol/L Anion Gap 10 12-20 Blood Urea Nitrogen 20 9-16 mg/dL Creatinine 1.06 0.5-1.4 mg/dL Creatinine Clr Calc Pharmacy 78.5 eGFR (calculated from the MDRD study equation) and eCrCl (calculated from the Cockcroft-Gault equation) are based on different parameters and may not yield comparable results. If eCrCl result is absurd, please check patient's height/weight. Estimated Glomerular Filt Rate > 60 Chronic Kidney Disease: Estimated GFR < 60 mL/min/1.73m2 Severe Kidney Disease: Estimated GFR < 15 mL/min/1.73m2 Glucose Random 134 60-115 mg/dL Calcium 9.1 8.4-10.2 mg/dL Bilirubin Total 1.2 0.0-1.0 mg/dL Aspartate Amino Transferase 23 5-37 U/L Alanine Aminotransferase 22 0-40 U/L Total Protein 7.3 6.5-8.0 g/dL Albumin Level 3.4 3.5-5.0 g/dL Alkaline Phosphatase 75 39-117 U/L Magnesium Reviewed date:05/25/2024 08:00:44 PM Interpretation: Performing Lab:[facility], [address] [place] [phone] Notes/Report: Magnesium 1.8 1.6-2.6 mg/dL Troponin-I High Sensitivity Reviewed date:05/25/2024 08:00:52 PM Interpretation: Performing Lab:[facility], [address] [place] [phone] Notes/Report: Troponin-I High Sensitivity 5.9 <3.5-35.0 ng/L The [place] high sensitivity Troponin-I results should be used in conjunction with other diagnostic information such as ECG, clinical observations and information, and patient symptoms to aid in the diagnosis of NH. SLIDE REVIEW Reviewed date:05/25/2024 07:59:08 PM Interpretation: Performing Lab:[facility], [address] [place] [phone] Notes/Report: SLIDE REVIEW VERIFIED SARS-CoV2/FLU/RSV Reviewed date:05/25/2024 07:58:17 PM Interpretation: Performing Lab:[facility], [address] [place] [phone] Notes/Report: Influenza A PCR NEGATIVE Negative Influenza B PCR NEGATIVE Negative Resp Syncy Virus RNA Qual PCR NEGATIVE Negative SARS COV2 PCR INHOUSE NEGATIVE Negative All test results must be correlated with clinical findings. Negative results do not preclude SARS-CoV2, influenza A virus, influenza B virus and/or RSV infection and should not be used as the sole basis for treatment or other patient management decisions. Negative results must be combined with clinical observations, patient history, and epidemiological information. This test has not been evaluated for monitoring treatment of infection. This test has been authorized by the FDA under an Emergency Use Authorization (EUA) for use by authorized laboratories. Testing performed on the On[employer] GeneXpert utilizing real-time RT-PCR. All SARS CoV2 and positive influenza A/B results are reported to [facility]. XR chest 1V Reviewed date:05/25/2024 08:05:43 PM Interpretation: Performing Lab: Notes/Report: [place] [id number] [place] [address] XRay Report Signed Patient: Ortega Lange MR#: [id number] : 1950 Acct:[id number] Age/Sex: 73 / M ADM Date: 05/25/24 Loc: HO.ED Attending Dr: Ordering Physician: Breanna Fry Date of Service: 05/25/24 Procedure(s): XR chest 1V Accession Number(s): [id number] cc: Dhruv Duncan MD; Breanna Fry EXAMINATION: XR CHEST 1 VIEW HISTORY: pain COMPARISON: Correlation is made with a chest CT dated 04/26/2024. FINDINGS: A single AP portable view of the chest performed at 2:07 PM is submitted. There are bilateral calcified pleural plaques, consistent with prior asbestos exposure. No focal airspace opacities are identified. There is no pleural effusion, pneumothorax, or pulmonary vascular congestion. The heart is enlarged. There is degenerative disc disease of the spine. XR/XR chest 1V IMPRESSION: Cardiomegaly. Calcified pleural plaques consistent with prior asbestos exposure. No acute cardiopulmonary abnormality. Electronically signed by: Jaiem Keys MD 05/25/2024 02:18 PM EDT Dictated By: Jaime Keys MD Signed By: <Electronically signed by Jaime Keys MD in OV> 05/25/24 1418 DD/ 1400 TD/TT: 05/25/24 1412 Foreign Broadcast Specialist: [address] [address] XRay Report Signed Patient: Ortega Lange MR#: [id number] : 1950 Acct:[id number] Age/Sex: 73 / M ADM Date: 05/25/24 Loc: .ED Attending Dr: Ordering Physician: Breanna Fry Date of Service: 05/25/24 Procedure(s): XR francine st 1V Accession Number(s): [id number] cc: Dhruv Duncan MD; Breanna Fry EXAMINATION: XR CHES T 1 VIEW HISTORY: pain COMPARISON: Correlat ion is made with a chest CT dated 04/26/2024. FINDINGS: A single A P portable view of the chest performed at 2:07 PM is submitted. There are bilateral calcified pleural plaques, consistent with prior asbestos exposure. No focal airspace opacities are identified. There is no pleural effusion, pneumothorax, or pulmonary vascular congestion. The heart is enlarged. There is degenerative disc disease of the spine. XR/XR chest 1V IMPRESSION: Cardiomegaly. Calcif ied pleural plaques consistent with prior asbestos exposure. No acute cardiopulmonary abnormality. Electronically jamarcus d by: Jaime Keys MD 05/25/2024 02:18 PM EDT Dictated By: Jaime Keys MD Signed By: <Electronically signed by Jaime Keys MD in OV> 05/25/24 1418 DD/ 1400 TD/TT: 05/25/24 1412 Foreign Broadcast Specialist: Troponin-I High Sensitivity Reviewed date:05/25/2024 07:58:55 PM Interpretation: Performing Lab:[facility], [address] [place] [phone] Notes/Report: Troponin-I High Sensitivity 6.3 <3.5-35.0 ng/L The [place] high sensitivity Troponin-I results should be used in conjunction with other diagnostic information such as ECG, clinical observations and information, and patient symptoms to aid in the diagnosis of NH. Huy Olivas Reviewed date:06/28/2024 12:40:54 PM Interpretation: Performing Lab:[facility], [address] [place] [phone] Notes/Report: Huy Olivas See Note Specimen held untested for 24 hours; Call to request Chemistry testing. Reason For Referral Reason chest pressure Diagnosis 1 Chest pressure (R07. 89) Referral Organization Dhruv Duncan MD Referring Provider First Name Dhruv Referring Provider Last Name [place] Referring Provider Speciality Internal M edicine Referred Provider CORINNE VIVAR Referred Provider Specialty Cardiology General Notes Julianne Al 0 06/10/2024 02:00:11 PM >info faxed, Julianne Al 06/25/2024 01:07:09 PM > being worked on, Julianne Al 07/09/2024 01:48:06 PM >was told on the [...] Julianne Al 0 06/10/2024 02:00:38 PM >info faxedServando Annette 06/11/2024 11:52:34 AM >info refaxedServando Annette 06/14/2024 10:46:16 AM > referral info refaxedServando Annette 06/18/2024 10:50:48 AM > patient is aware of appt Referral Priority Routine Referral Appointment Date 09/20/2024 Medications Medication SIG (Take, Route, Frequency, Duration) Notes Start Date End Date Status oxyCODONE HCl 5 MG 1 tablet as needed Orally twice a day as needed for 20 days 09/11/2023 Not-Taking Albuterol Sulfate HFA 108 (90 Base) MCG/ACT 1 puff as needed Inhalation every 4 hrs for 30 days 06/01/2024 Active Ibuprofen 800 MG 1 tablet Orally Thre e times a day for 90 days 12/04/2015 Not-Taking Terbinafine HCl 250 MG 1 tablet Orally O nce a day for 21 days 12/30/2022 Not-Taking traMADol HCl 50 MG 1 tablet as needed Orally every 6 hrs Not-Taking metFORMIN HCl 500 MG Take 1 tablet by [facility] once a day for 30 day(s) with a meal for 30 Active Gabapentin 300 MG 1 capsule Orally onc e a day Not-Taking Levothyroxine Sodium 175 MCG Take 1 tablet by mouth once daily for 90 Active Atorvastatin Calcium 80 MG TAKE ONE TABL ET BY MOUTH ONCE DAILY Active Lisinopril-hydroCHLOROthia zide 20-12.5 MG TAKE ONE TABLET BY MOUTH ONCE DAILY for 90 days Active Immunizations Vaccine Route Administration Date Status Comme nts Flu Vaccine IM Intramuscular 02/03/2012 Administered Flu Vaccine IM Intramuscular 11/23/2012 Administered PPSV23 (Pnemovax) IM Intramuscular 09/19/2014 Administered Fluarix Quadrivalent IM Intramuscular 12/19/2014 Administe red Prevnar 13 IM Intramuscular 10/05/2015 Administered Fluarix Quadrivalent IM Intramuscular 12/04/2015 Administe red Fluarix Quadrivalent IM Intramuscular 12/24/2016 Administe red TDaP Unknown 12/24/2016 Administered [facility] Fluarix Quadrivalent IM Intramuscular 01/27/2018 Administe red Fluarix Quadrivalent IM Intramuscular 01/19/2019 Administe red Fluarix Quadrivalent IM Intramuscular 12/23/2019 Administe red PPSV23 (Pnemovax) IM Intramuscular 06/20/2020 Administered Influenza High Dose IM Intramuscular 12/18/2020 Administer ed Covid Vaccine Unknown 06/26/2021 Refused Fluarix Quadrivalent Unknown 12/30/2022 Refused Social History Tobacco Use: Social History Observation [...] Notes: has stopped smoking with juan ntix has stopped smoking with [employer] has stopped smoking with [employer] has stopped smoking with [employer] has stopped smoking with [employer] has stopped smoking with [employer] has stopped smoking with [employer] has stopped smoking with [employer] has stopped smoking with [employer] has stopped smoking with [employer] has stopped smoking with [employer] last cigarette was 18 has stopped smoking with [employer] last cigarette was 18 has stopped smoking with [employer] last cigarette was 18 has stopped smoking with [employer] last cigarette was 18 has stopped smoking with [employer] last cigarette was 18 has stopped smoking with [employer] last cigarette was 03-18-17 has stopped smoking with [employer] last cigarette was 18 has stopped smoking with [employer]an [employer] last cigarette was 1-16-18 Problems Problem Type SNOMED Code ICD Code Onset Dates Problem Status W/U Status Risk Notes Problem 907411715 Restless legs sy ndrome (G25.81) Active confirmed Problem 95015803 Smoker (F17.200) Active confirmed Problem 95113905 Essential hypert ension (I10) Active confirmed Problem 690112826 Acquired hypothyroidism (E03.9) Active confirmed Problem 7597661 Prediabetes (R73.09) Active confirmed Problem 81814475 RBBB (I45.10) Active confirmed Problem Chronic obstructive pulmonary disease (07323026) Chronic obstructive pulmonary disease (J44.9) Active confirmed Problem 26284068 Chronic obstruct pauline pulmonary disease, unspecified COPD type (J44.9) Active confirmed Problem 176191921 History of hemat uria (Z87.448) Active confirmed Problem 143667745 Pure hypercholesterolemia (E78.00) Active confirmed Problem 1277922367095161 Arthritis of le ft hip (M16.12) Active confirmed Problem Radiology result abnormal (879422405) Abnormal chest CT (R93.89) Active confirmed Problem 82250796 Arthritis, hip (M16.10) Active confirmed Problem 59617191 Type 2 diabetes mellitus treated without insulin (E11.9) Active confirmed Vital Signs Blood pressure diastolic 70 mm Hg 07/05/2024 karen ght is up 7 pounds since 06-01-24 Height 72 in 07/05/2024 weight is up 7 pounds since 06-01-24 Blood pressure systolic 118 mm Hg 07/05/2024 weig ht is up 7 pounds since 06-01-24 Weight 240 lbs 07/05/2024 weight is up 7 pounds since 06-01-24 BMI 32.55 kg/m2 07/05/2024 weight is up 7 pounds since 06-01-24 Encounters Encounter Location Date Provider Diagnosis Dhruv Duncan MD [address] [place] [address] [id number] 06/28/2024 Dhruv Duncan Pure hypercholestero lemia E78.00 and Type 2 diabetes mellitus treated without insulin E11.9 Dhruv Duncan MD [address] [place] [address] [id number] 06/28/2024 Dhruv Duncan Anemia D64.9 Dhruv Duncan MD [address] [place] [address] [id number] 10/03/2023 Dhruv Duncan Prediabetes R73.09 a nd Type 2 diabetes mellitus treated without insulin E11.9 Dhruv Duncan MD [address] [place] [address] [id number] 12/29/2023 Dhruv Duncan Essential hypertensi on I10 ; Acquired hypothyroidism E03.9 ; Prediabetes R73.09 ; Pure hypercholesterolemia E78.00 and Elevated LFTs R79.89 Dhruv Duncan MD [address] [place] [address] [id number] 01/05/2024 Dhruv Duncan Essential hypertensi on I10 ; Acquired hypothyroidism E03.9 ; Smoker F17.200 ; Prediabetes R73.09 ; Seborrheic keratosis L82.1 ; Type 2 diabetes mellitus treated without insulin E11.9 ; Chronic obstructive pulmonary disease, unspecified COPD type J44.9 ; Pure hypercholesterolemia E78.00 ; Colon cancer screening Z12.11 and Depression screening Z13.31 Dhruv Duncan MD [address] [place] [address] [id number] 04/22/2024 Dhruv Duncan Gastroenteritis due to norovirus A08.11 Dhruv Duncan MD [address] [place] [address] [id number] 06/01/2024 Dhruv Duncan Chronic obstructive pulmonary disease, unspecified COPD type J44.9 ; Chest pressure R07.89 ; Smoker F17.200 and Type 2 diabetes mellitus treated without insulin E11.9 Dhruv Duncan MD [address] [place] [address] [id number] 07/05/2024 Dhruv Duncan Type 2 diabetes tejal itus treated without insulin E11.9 ; Pure hypercholesterolemia E78.00 and Anemia, unspecified type D64.9 Dhruv Duncan MD [address] [place] [address] [id number] 09/29/2023 Dhruv Duncan MD [address] [place] [address] [id number] 05/27/2024 Dhruv Duncan MD [address] [place] [address] [id number] 05/27/2024 Dhruv Duncan MD [address] [facility] [place], [place] [id number] 07/08/2024 Dhruv Duncan Essential hypertensi on I10 Assessments Encounter Date Diagnosis (ICD Code) Assessment Notes Treatment Notes Treatment Clinical Notes Section Notes 06/28/2024 Pure hypercholesterolemia (ICD-10 - E78.00) 06/28/2024 Anemia (ICD-10 - D64.9) 10/03/2023 Prediabetes (ICD-10 - R73.09) 10/03/2023 Type 2 diabetes mellitus treated without insulin (ICD-10 - E11.9) at this point does not need metformin 12/29/2023 Essential hypertensi on (ICD-10 - I10) 12/29/2023 Acquired hypothyroid ism (ICD-10 - E03.9) 01/05/2024 Essential hypertensi on (ICD-10 - I10) well controlled, willcontinue currentregiment 01/05/2024 Acquired hypothyroid ism (ICD-10 - E03.9) tsh is good, at goal, will continue current regiment 04/22/2024 Gastroenteritis due to norovirus (ICD-10 - A08.11) stay away from father and other people and careful hand wahing 06/01/2024 Chronic obstructive pulmonary disease, unspecified COPD type (ICD-10 - J44.9) referral to pulmonology 06/01/2024 Chest pressure (ICD- 10 - R07.89) referal to cardiology 07/05/2024 Type 2 diabetes mellitus treated without insulin (ICD-10 - E11.9) patient verbalized understanding of medication nd directions for use, also advised on diet and exercise 07/05/2024 Pure hypercholesterolemia (ICD-10 - E78.00) stable,nort at goal, will continue current medication, advised on diet and exerise 07/08/2024 Essential hypertensi on (ICD-10 - I10) 06/28/2024 Type 2 diabetes mellitus treated without insulin (ICD-10 - E11.9) 12/29/2023 Prediabetes (ICD-10 - R73.09) 01/05/2024 Smoker (ICD-10 - F17.200) not interested in quiitting 06/01/2024 Smoker (ICD-10 - F17.200) has decided to quit 07/05/2024 Anemia, unspecified type (ICD-10 - D64.9) will continue to monitor 12/29/2023 Pure hypercholesterolemia (ICD-10 - E78.00) 01/05/2024 Prediabetes (ICD-10 - R73.09) advised to lose weight and stay away from carbs, will continue to monitor 06/01/2024 Type 2 diabetes mellitus treated without insulin (ICD-10 - E11.9) discussed diet 12/29/2023 Elevated LFTs (ICD-1 0 - R79.89) 01/05/2024 Seborrheic keratosis (ICD-10 - L82.1) no [...] Depression screening (ICD-10 - Z13.31) negative screen 06/01/2024 Other well controlled , no need for medication at this time Plan Of Treatment Pending Test Test Name Order Date Electrocardiogram (EKG) 10/05/2015 Electrocardiogram (EKG) 10/23/2017 Next Appt Details Provider Name:Dhruv colemanr, 10/12/2024 09:00:00 AM, [address] [place] [address], [address], [phone], Provider Name:Dhruv colemanr, 12/31/2024 07:15:00 AM, [address] [place] [address], [address], [phone], Provider Name:Dhruv colemanr, 01/07/2025 01:00:00 PM, [address] [place] [address], [address], [phone], Insurance Providers Payer Name Payer Address Payer Phone Subscriber Number Group Number Insured Name Patient Relationship to Insured Coverage Start Date Coverage End Date MEDICARE [facility] [address] [place] [address] [id number] Ortega Paredes se Self - patient is the insured MEDEX [facility] OF [address] [place] [address] [id number] Ortega Paredes se Self - patient is the insured Medical (General) History Medical History History ICD Code hematuria w/u 2002 colonoscopy 2007 due in 10 y ears; colonoscopy done 07/03/[address] Duke - repeat 10 years
--- OUTSIDE RECORDS SUMMARY | 2024-09-20 11:22 | XMS_ITS | Patient Health Record ---
Author Organization [facility] Address [address] [place] [address] Care Team Providers Care Pc Analyst Name Role Phone Dhruv Duncan MD Primary Care Provider Jaime Hand Unavailable [phone] Reason For Referral No Information Medications Medication SIG (Take, Route, Frequency, Duration) Notes Start Date End Date Status Levothyroxine Sodium 200 MCG TAKE 1 TABL ET BY MOUTH EVERY DAY Oral for 90 Active Atorvastatin Calcium 50 mg 1 tablet Oral ly Once a day Active Lisinopril 12.5 1 tablet Orally Once a day Active Immunizations Vaccine Route Administration Date Status Comme nts Influenza Unknown 01/01/2018 Administered Social History Tobacco Use: Social History Observation Description Date Details (start date - stop date) Current Smoker NA - NA Tobacco Use/Smoking Question Answer Notes Patient is a current smoker How often do you smoke cigarettes? some days, bu t not every day How many cigarettes a day do you smoke? 5 or les s Alcohol Screen Question Answer Notes Did you have a drink containing alcohol in the p ast year? No Points 0 Interpretation Negative Section Notes: Occasional smoker; no alcoho l Problems Problem Type SNOMED Code ICD Code Onset Dates Problem Status W/U Status Risk Notes Problem 689975175 Encounter for screening for malignant neoplasm of colon (Z12.11) Active confirmed Problem 795381780683148 Preprocedural examination (Z01.818) Active confirmed Plan Of Treatment Future Test Test Name Order Date COLONOSCOPY 05/19/2018 Insurance Providers Payer Name Payer Address Payer Phone Subscriber Number Group Number Insured Name Patient Relationship to Insured Coverage Start Date Coverage End Date MEDICARE OF [place] [address] [place] [address] [phone] [id number] DEB CORRALES SE Self - patient is the insured MEDEX ATT[employer] CLAIMS [address] [place] [address] [id number] DEB CORRALES SE Self - patient is the insured Medical (General) History Medical History History ICD Code Denies PR,DM,CVA,Lung disease,renal dise ase Hypertension Elevated Cholesterol Negative colonoscopy in 2000 and in 2007 Hypothyroidism Negative transglutaminase IgA and IgG an tibodies in 2007 Surgical History Surgery Date(Month/Year) Right knee replacement in 2014 Back surgery 2012
== END 2024-09-20 15:36 | disposition home or self-care (01) ==
LOC: HO.HPS 10:23
PROVIDERS: PCP Internal Medicine; Visit Provider Hospitalist
DX: J44.89 Other specified chronic obstructive pulmonary disease (principal); R06.09 Other forms of dyspnea; R09.02 Hypoxemia
CPT/HCPCS: 99204

== ENCOUNTER → 2024-09-20 10:23 | Outpatient (BNVA) | payer MEDICARE, SELFPAY | PROVIDERS: PCP Internal Medicine; Visit Provider Hospitalist | DX: J44.89 Other specified chronic obstructive pulmonary disease (principal); R06.09 Other forms of dyspnea; R09.02 Hypoxemia; Z87.891 Personal history of nicotine dependence | CPT/HCPCS: 99202 ==

== ENCOUNTER 2024-09-24 08:58 | Outpatient (REF) | payer MEDICARE, SELFPAY ==
[2024-09-24 07:38] VITALS: PULSE 75; O2SAT 95
--- OUTSIDE RECORDS SUMMARY | 2024-09-24 09:17 | XMS_ITS | Patient Health Record ---
Author Organization Dhruv Duncan MD Address [address] [place], [place] [id number] Care Team Providers Care Curriculum Developer Name Role Phone Dhruv Duncan Primary Care Provider [phone] Allergies No Known Allergies Results Component Value Reference Range Notes Hemoglobin A1c Reviewed date:10/03/2023 10:42:42 AM Interpretation: Performing Lab: Notes/Report: Hemoglobin A1c 6.4 Hemoglobin A1c Reviewed date:06/01/2024 01:11:54 PM Interpretation: Performing Lab: Notes/Report: Hemoglobin A1c 6.5 Liver Panel Reviewed date:06/28/2024 12:43:59 PM Interpretation: Performing Lab:[facility], [address] [place] [phone] Notes/Report: Bilirubin Total 0.6 0.0-1.0 mg/dL Bilirubin Direct 0.2 0.0-0.5 mg/dL Aspartate Amino Transferase 31 5-37 U/L Alanine Aminotransferase 22 0-40 U/L Total Protein 7.3 6.5-8.0 g/dL Albumin Level 3.6 3.5-5.0 g/dL Alkaline Phosphatase 84 39-117 U/L Glucose Fasting Reviewed date:06/28/2024 12:42:15 PM Interpretation: Performing Lab:[facility], [address] [place] [phone] Notes/Report: Glucose Fasting 132 60-99 mg/dL A fasting glucose of 126 mg/dl or greater on more than one occasion is considered diagnostic of diabetes. Lipid Panel with Reflex Reviewed date:06/28/2024 12:44:26 PM Interpretation: Performing Lab:[facility], [address] [place] [phone] Notes/Report: Triglycerides 223 <150 mg/dL Desirable Triglyceride: [...] A1c Reviewed date:06/28/2024 12:42:07 PM Interpretation: Performing Lab:[facility], [address] [place] [phone] Notes/Report: Hemoglobin A1c % 6.8 <6.0 % [...] average glucose, using the formula of the I0Y-Oopalug Average Glucose study (ADAG), Diabetes Care, Vol.31,#8, Oct. 2007 Complete Blood Count Auto Di ff Reviewed date:06/28/2024 05:12:28 PM Interpretation: Performing Lab:[facility], [address] [place] [phone] Notes/Report: White Blood Count 9.8 4.8-10.8 X10*3/uL [...] ff Reviewed date:12/29/2023 06:19:04 PM Interpretation: Performing Lab:[facility], [address] [place] [phone] Notes/Report: White Blood Count 9.3 4.8-10.8 X10*3/uL [...] NRBC Abs Auto 0.000 0.0-0.012 X10*3/uL Comprehensive [place]. Panel Fa st Reviewed date:12/29/2023 06:20:38 PM Interpretation: Performing Lab:[facility], [address] [place] [phone] Notes/Report: Sodium 142 135-145 mmol/L Potassium 4.0 3.3-5.1 mmol/L Chloride 105 96-108 mmol/L Carbon Dioxide 29 22-29 mmol/L Anion Gap 12 12-20 Blood Urea Nitrogen 17 9-16 mg/dL Creatinine 1.10 0.5-1.4 mg/dL Estimated Glomerular Filt Rate > 60 NOTE: For -Swiss individuals, multiply the result by 1.210. Chronic [...] Panel Reviewed date:12/29/2023 12:57:07 PM Interpretation: Performing Lab:[facility], [address] [place] [phone] Notes/Report: Bilirubin Direct 0.1 0.0-0.5 mg/dL Lipid Panel Reviewed date:12/29/2023 12:53:33 PM Interpretation: Performing Lab:[facility], [address] [place] [phone] Notes/Report: Triglycerides 237 <150 mg/dL Desirable Triglyceride: [...] (Free>4and<10) Reviewed date:12/29/2023 12:57:15 PM Interpretation: Performing Lab:[facility], [address] [place] [phone] Notes/Report: PSA,Total (Free>4and<10) 0.59 0.00-4.00 ng/mL A [...] T4 Reviewed date:12/29/2023 12:51:16 PM Interpretation: Performing Lab:[address] [phone] Notes/Report: TSH reflex Free T4 3.46 0.32-4.0 uIU/mL Microalbumin, Random Reviewed date:12/29/2023 06:17:47 PM Interpretation: Performing Lab:[facility], [address] [place] [phone] Notes/Report: Creatinine Urine 115.98 Microalbumin Urine 5.0 Microalbum/Creatinine Ratio Ur 4.3 <30 ug/mg cr Albumin/Creatinine Ratio Reference Ranges: Normal: < 30 ug/mg creatinine Microalbuminuria: 30 - 300 ug/mg creatinine Clinical Albuminuria: > 300 ug/mg creatinine Hemoglobin A1c Reviewed date:12/29/2023 12:37:24 PM Interpretation: Performing Lab:[address] [phone] Notes/Report: Hemoglobin A1c % 6.1 <6.0 % [...] average glucose, using the formula of the C2J-Jcflabv Average Glucose study (ADAG), Diabetes Care, Vol.31,#8, 2007 UA ClnCatch+Micro w/rflx Cul t Reviewed date:12/29/2023 12:58:01 PM Interpretation: Performing Lab:[facility], [address] [place] [phone] Notes/Report: [id number] Urine, Clean Catch Color Urine Yellow Appearance Urine Clear PH 5.5 5.0-9.0 Glucose Urine UA Negative Negative mg/dL Urine Blood Negative Negative Specific [place] - Urine 1.020 1.005-1.025 Urine Protein Negative [...] date:04/27/2024 12:59:51 PM Interpretation: Performing Lab: Notes/Report: [address] [address] [address] Scan Report Signed Patient: Ortega Lange MR#: [id number] : 1950 Acct:[id number] Age/Sex: 73 / M ADM Date: 04/26/24 Loc: HO.CT Attending Dr: Luz Randhawa PA-C Ordering Physician: Luz Randhawa PA-C Date of Service: 04/26/24 Procedure(s): CT lung screening Accession Number(s): [id number] cc: Dhruv Duncan MD; Luz Randhawa PA-C Report Number: [id number]: Total DLP = 68.00 mGy-cm CLINICAL HISTORY: [...] 04/27/24 1250 DD/ 1249 TD/TT: 04/27/24 1249 Content Writer: [place] [address] [address] Scan Report Signed Patient: Ortega Lange MR#: [id number] : 1950 Acct:[id number] Age/Sex: 73 / M ADM Date: 04/26/24 Loc: .CT Attending Dr: Luz Randhawa PA-C Ordering Physician: Luz Randhawa PA-C Date of Service: 04/26/24 Procedure(s): CT josie g screening Accession Number(s): [id number] cc: Dhruv Duncan MD; Luz Randhawa PA-C Report Number: [id number]: Total DLP = 68.00 mGy-cm CLINICAL HISTORY: [...] 04/27/24 1250 DD/ 1249 TD/TT: 04/27/24 1249 Content Writer: Complete Blood Count Auto Di ff Reviewed date:05/27/2024 07:16:18 AM Interpretation: Performing Lab:[facility], [address] [place] [phone] Notes/Report: White Blood Count 17.4 4.8-10.8 X10*3/uL [...] Panel Reviewed date:05/25/2024 08:06:03 PM Interpretation: Performing Lab:[facility], [address] [place] [phone] Notes/Report: Sodium 137 135-145 mmol/L Potassium 3.8 [...] Magnesium Reviewed date:05/25/2024 08:00:44 PM Interpretation: Performing Lab:[facility], [address] [place] [phone] Notes/Report: Magnesium 1.8 1.6-2.6 mg/dL Troponin-I High Sensitivity Reviewed date:05/25/2024 08:00:52 PM Interpretation: Performing Lab:[facility], [address] [place] [phone] Notes/Report: Troponin-I High Sensitivity 5.9 <3.5-35.0 ng/L The [place] high sensitivity Troponin-I results should be used in conjunction with other diagnostic information such as ECG, clinical observations and information, and patient symptoms to aid in the diagnosis of OH. SLIDE REVIEW Reviewed date:05/25/2024 07:59:08 PM Interpretation: Performing Lab:[facility], [address] [place] [phone] Notes/Report: SLIDE REVIEW VERIFIED SARS-CoV2/FLU/RSV Reviewed date:05/25/2024 07:58:17 PM Interpretation: Performing Lab:[facility], [address] [place] [phone] Notes/Report: Influenza A PCR NEGATIVE Negative Influenza [...] by authorized laboratories. Testing performed on the [employer] GeneXpert utilizing real-time RT-PCR. All SARS CoV2 and positive influenza A/B results are reported to [facility]. XR chest 1V Reviewed date:05/25/2024 08:05:43 PM Interpretation: Performing Lab: Notes/Report: [place] [address] [place] [address] XRay Report Signed Patient: Ortega Lange MR#: [id number] : 1950 Acct:[id number] Age/Sex: 73 / M ADM Date: 05/25/24 Loc: HO.ED Attending Dr: Ordering Physician: Breanna Fry Date of Service: 05/25/24 Procedure(s): XR chest 1V Accession Number(s): [id number] cc: Dhruv Duncan MD; Breanna Fry EXAMINATION: [...] No acute cardiopulmonary abnormality. Electronically signed by: Jaime Keys MD 05/25/2024 02:18 PM EDT Dictated By: Jaime Keys MD Signed By: <Electronically signed by Jaime Keys MD in OV> 05/25/24 1418 DD/ 1400 TD/TT: 05/25/24 1412 Content Writer: [address] [address] XRay Report Signed Patient: Ortega Lange MR#: [id number] : 1950 Acct:[id number] Age/Sex: 73 / M ADM Date: 05/25/24 Loc: .ED Attending Dr: Ordering Physician: Breanna Fry Date of Service: 05/25/24 Procedure(s): XR francine st 1V Accession Number(s): [id number] cc: Dhruv Duncan MD; Breanna Fry EXAMINATION: [...] 05/25/24 1418 DD/ 1400 TD/TT: 05/25/24 1412 Content Writer: Troponin-I High Sensitivity Reviewed date:05/25/2024 07:58:55 PM Interpretation: Performing Lab:[facility], [address] [place] [phone] Notes/Report: Troponin-I High Sensitivity 6.3 <3.5-35.0 ng/L The [place] high sensitivity Troponin-I results should be used in conjunction with other diagnostic information such as ECG, clinical observations and information, and patient symptoms to aid in the diagnosis of OH. Huy Olivas Reviewed date:06/28/2024 12:40:54 PM Interpretation: Performing Lab:[facility], [address] [place] [phone] Notes/Report: Huy Olivas See Note Specimen held untested for 24 hours; Call to request Chemistry testing. Reason For Referral Reason chest pressure Diagnosis 1 Chest pressure (R07. 89) Referral Organization Dhurv Duncan MD Referring Provider First Name Dhruv [...] HCl 500 MG Take 1 tablet by [facility] once a day for 30 [...] Problem Status W/U Status Risk Notes Problem 846363695 Restless legs sy ndrome (G25.81) Active confirmed Problem 04291803 Smoker (F17.200) Active confirmed Problem 26438330 Essential hypert ension (I10) Active confirmed Problem 087942969 Acquired hypothyroidism (E03.9) Active confirmed Problem 8845049 Prediabetes (R73.09) Active confirmed Problem 31939001 RBBB (I45.10) Active confirmed Problem Chronic obstruct pauline pulmonary disease (J44.9) Active confirmed Problem 47095899 Chronic obstruct pauline pulmonary disease, unspecified COPD type (J44.9) Active confirmed Problem 668870315 History of hemat uria (Z87.448) Active confirmed Problem 439938061 Pure hypercholesterolemia (E78.00) Active confirmed Problem 4903580805032785 Arthritis of le ft hip (M16.12) Active confirmed Problem Radiology result abnormal (444012623) Abnormal chest CT (R93.89) Active confirmed Problem 44814103 Arthritis, hip (M16.10) Active confirmed Problem 03266587 Type 2 diabetes mellitus treated without insulin [...] Dhruv Duncan MD [address] [place] [id number] 06/28/2024 Dhruv Duncan Pure hypercholestero lemia E78.00 and Type 2 diabetes mellitus treated without insulin E11.9 Dhruv Duncan MD [address] [place] [id number] 06/28/2024 Dhruv Duncan Anemia D64.9 Dhruv Duncan MD [address] [place] [id number] 10/03/2023 Dhruv Duncan Prediabetes R73.09 a nd Type 2 diabetes mellitus treated without insulin E11.9 Dhruv Duncan MD [address] [place] [id number] 12/29/2023 Dhruv Duncan Essential hypertensi on I10 ; Acquired hypothyroidism E03.9 ; Prediabetes R73.09 ; Pure hypercholesterolemia E78.00 and Elevated LFTs R79.89 Dhruv Duncan MD [address] [place] [id number] 01/05/2024 Dhruv Duncan Essential hypertensi on I10 ; Acquired hypothyroidism E03.9 ; Smoker F17.200 ; Prediabetes R73.09 ; Seborrheic keratosis L82.1 ; Type 2 diabetes mellitus treated without insulin E11.9 ; Chronic obstructive pulmonary disease, unspecified COPD type J44.9 ; Pure hypercholesterolemia E78.00 ; Colon cancer screening Z12.11 and Depression screening Z13.31 Dhruv Duncan MD [address] [place] [id number] 04/22/2024 Dhruv Duncan Gastroenteritis due to norovirus A08.11 Dhruv Duncan MD [address] [place] [address] [id number] 06/01/2024 Dhruv Duncan Chronic obstructive pulmonary disease, unspecified COPD type J44.9 ; Chest pressure R07.89 ; Smoker F17.200 and Type 2 diabetes mellitus treated without insulin E11.9 Dhruv Duncan MD [address] [place] [address] [id number] 07/05/2024 Dhruv Duncan Type 2 diabetes tejal itus treated without insulin E11.9 ; Pure hypercholesterolemia E78.00 and Anemia, unspecified type D64.9 Dhruv Duncan MD [address] [place] [address] [id number] 09/29/2023 Dhruv Duncan MD [address] [place] [address] [id number] 05/27/2024 Dhruv Duncan MD [address] [place] [address] [id number] 05/27/2024 Dhruv Duncan MD [address] [place] [address] [id number] 07/08/2024 Dhruv Duncan Essential hypertensi on I10 [...] (EKG) 10/23/2017 Next Appt Details Provider Name:Dhruv jeffers, 10/12/2024 09:00:00 AM, [address] [place] [address], [phone], Provider Name:Dhruv colemanr, 12/31/2024 07:15:00 AM, [address] [place] [address], [phone], Provider Name:Dhruv colemanr, 01/07/2025 01:00:00 PM, [address] [place] [address], [phone], Insurance Providers Payer Name Payer Address Payer Phone Subscriber Number Group Number Insured Name Patient Relationship to Insured Coverage Start Date Coverage End Date [employer] [address] [place] [address] [id number] Ortega Paredes se Self - patient is the insured [employer] [place] [address] [place] [address] [id number] Ortega Paredes se Self - patient is the insured Medical (General) History Medical History History ICD Code hematuria w/u 2002 colonoscopy 2007 due in 10 y ears; colonoscopy done 07/03/[address] Duke - repeat 10 years
--- OUTSIDE RECORDS SUMMARY | 2024-09-24 09:17 | XMS_ITS | Patient Health Record ---
Author Organization [facility] Address [address] [place] [address] Care Team Providers Care Supervisor Statement Clerks Name Role Phone Dhruv Duncan MD Primary Care Provider Jaime Hand Unavailable [phone] Reason For Referral No Information Medications Medication [...] Problem Status W/U Status Risk Notes Problem 671855417 Encounter for screening for malignant neoplasm of colon (Z12.11) Active confirmed Problem 381117765878720 Preprocedural examination (Z01.818) Active confirmed Plan Of Treatment Future Test Test Name Order Date COLONOSCOPY 05/19/2018 Insurance Providers Payer Name Payer Address Payer Phone Subscriber Number Group Number Insured Name Patient Relationship to Insured Coverage Start Date Coverage End Date MEDICARE OF [place] [address] [place] [address] [id number] DEB CORRALES SE Self - patient is the insured MED[employer] ATT[employer] CLAIMS [address] [place] [phone] [id number] DEB CORRALES SE Self - patient is the insured Medical (General) History Medical History History ICD Code Denies HI,DM,CVA,Lung disease,renal dise ase Hypertension Elevated Cholesterol Negative colonoscopy in 2000 and in 2007 Hypothyroidism Negative transglutaminase IgA and IgG an tibodies in 2007 Surgical History Surgery Date(Month/Year) Right knee replacement in 2014 Back surgery 2012
--- NOTE | 2024-09-24 14:13 | PFT_ITS ---
Flows: FEV1: 65 % of predicted at 2.15 L FVC: 78 % of predicted at 3.51 L FEV1/FVC: 61 % Bronchodilator response: Present Volumes: Total lung capacity: 65 % of predicted at 5.06 L Residual volume: 57 % of predicted at 1.68 L Slow vital capacity: 72 % of predicted at 3.39 L Expiratory reserve volume: 45 % of predicted at 0.64 L Diffusion capacity: Moderately decreased, corrects to normal after adjustment for alveolar ventilation. Impression: Combined moderate obstructive and restrictive ventilatory defects with positive bronchodilator response. Decreased expiratory reserve volume suggests extrathoracic restriction likely secondary to abdominal obesity. Decreased diffusion capacity suggests emphysema. MTDD
== END 2024-09-24 08:59 | disposition home or self-care (01) ==
LOC: HO.RESP 08:58
PROVIDERS: PCP Internal Medicine; Visit Provider Hospitalist
DX: J44.89 Other specified chronic obstructive pulmonary disease (principal)
CPT/HCPCS: 94010; 94640; 94727; 94729

== ENCOUNTER → 2024-09-24 14:13 | Outpatient (BNV) | payer MEDICARE, SELFPAY | PROVIDERS: PCP Internal Medicine; Visit Provider Internal Medicine Pulmonary Disease | DX: J98.4 Other disorders of lung (principal) | CPT/HCPCS: 94060; 94727; 94729 ==

== ENCOUNTER 2024-11-19 10:04 | Outpatient (AMB) | payer MEDICARE, SELFPAY ==
[2024-11-19 10:08] VITALS: BP 112/64; PULSE 93; O2SAT 94; BMI 32.4
--- NOTE | 2024-11-19 10:08 | MHC.OFFVIS ---
Vital Signs 11/19/24 10:08 Height 6 ft 1 in Weight 245 lb 13.047 oz BMI 32.4 BP 112/64 Blood Pressure Location Lt brachial Position Sitting Pulse 93 Pulse Source Pulse Oximeter Pulse Oximetry (%) 94 Oxygen Delivery Method Room Air Intake Visit Reasons: COPD/PFT Follow Up Hourly Shift Manager Required: No Accompanied by: Self / Same As Patient Allergies No Known Allergies Allergy (Verified 11/19/24 10:10) HPI Comments Details: The patient is a 74-year-old gentleman presenting with worsening respiratory symptoms. The patient is a former smoker. He had evaluation in urgent care and in the ER because of worsening shortness of breath with activity. The patient had a full workup. It included a CT scan of the chest. I did personally reviewed with him. The patient did have evidence of asbestos related lung disease with asbestos plaques and also some mild degree of emphysema. The patient also underwent blood work demonstrating significant eosinophilia. He was given a short-acting beta agonist inhaler although he has not seen any significant improvement. He continues to have significant dyspnea on exertion even with minimal activity. During the visit we did go for brief walking oximetry. It was apparent that he does have a drop foot. He explained that he had an issue with his back and had surgery recently. Seems to be healing well. His oxygen did drop though to about 90% with activity. He does have clubbing of his nail beds. It is unclear based on the CAT scan the degree of hypoxia that he has his out of proportion to the findings. Will go ahead and optimize her respiratory therapy by placing him on Trelegy. He can try the 4 month. Will request pulmonary function studies. In the meantime he should have a cardiac workup specially since did degree of hypoxia is out of proportion to the findings on the CAT scan his underlying lung disease. As far as the asbestos began only remember 1 event where he was cleaning out his house and he removed significant amount of asbestos without a good protective gear. It must have been a lot of asbestos specially since left a significant amount of burden of asbestos plaques in his lungs. 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 Denies any direct contact with asbestos at that point. At this point he will continue with the lung cancer screening program. Will go ahead and request his PFTs and have him follow-up and will discuss the findings then. Would also recommend him getting an echocardiogram which he will probably have dome when he gets evaluated from cardiology. In the meantime will request an overnight oximetry to assess his oxygen requirements at nighttime. 11/19/2024 the patient is here for pulmonary follow-up visit. Overall he has been doing well. Unfortunately continues to smoke cigarettes although he has cut down significantly. Down to 2 cigarettes a day. We did look at his PFTs. The patient appears to have moderate COPD. Also a [id number] restriction. We did look at a CT scan demonstrating evidence of emphysema in addition to the asbestos related lung disease with pleural plaques. He is not aware of significant amount of exposure to asbestos but he realizes he has a good amount in his lungs. For now though he understands it does causing him to have both restrictive in an obstructive process. In view of his significant COPD the patient will be a great candidate for pulmonary rehabilitation. He is only taking a rescue inhaler that has not been helpful. I am giving him not DuoNeb treatment right now in the office. I do believe that Wixela be a lot better for him. In addition to that the patient will start pulmonary rehabilitation at this time. He will continue participating in the lung cancer screening program. He is also going to follow-up with Cardiology. [facility] Medical History (Updated 09/20/24 @ 22:39 by Delon Dent MD) Hypoxia Dyspnea Asthma-COPD overlap syndrome Nicotine dependence, cigarettes, uncomplicated Hypothyroidism Hyperlipidemia Hypertension, essential, benign Surgical History (Updated 02/09/21 @ 14:04 by Luz Randhawa PA-C) History of back surgery History of right knee joint replacement History of colonoscopy Social History Patient Tobacco Use Status: Current everyday Tobacco user Tobacco use type: Cigarette Review of Systems Const Denies fever(s) Eyes Reports no additional complaints and Denies itchy eyes ENT Reports nasal congestion Card Denies chest pain and Reports dyspnea on exertion Resp Reports cough and Reports dyspnea on exertion GI Reports no additional complaints Musc Reports no additional complaints Skin/Breast Denies rash Neuro Reports no additional complaints Endo Reports no additional complaints Patrick/Lymph Denies easy bleeding Aller/Immun Denies itchy eyes Physical Exam Vital Signs: Last Vital Signs Pulse 93 11/19/24 10:08 BP 112/64 11/19/24 10:08 Pulse Ox 94 11/19/24 10:08 Oxygen Delivery Method Room Air 11/19/24 10:08 BMI result Body Mass Index 32.4 Const General: comfortable HEENT Head: Yes normocephalic Eyes General: appearance normal, both eyes and all related structures Neck Neck: Yes supple Chest Chest palpation & inspection: normal inspection of the chest Resp Effort & Inspection: normal respiratory effort Auscultation: diminished lung sounds Cardio Heart sounds: S1 normal heart sound present and S2 normal heart sound present GI Palpation (GI): Soft to palpation Skin General skin exam: no rashes or lesions noted Extrem General: Yes no clubbing, cyanosis or edema Assessment & Plan Assessment & Plan (1) Asthma-COPD overlap syndrome: Code(s): J44.89 - Other specified chronic obstructive pulmonary disease Category: Medical (2) Dyspnea: Code(s): R06.00 - Dyspnea, unspecified Category: Medical Qualifiers: Dyspnea type: dyspnea on exertion Qualified Code(s): R06.09 - Other forms of dyspnea (3) Hypoxia: Code(s): R09.02 - Hypoxemia Category: Medical Plan continue Wixela KIRILL as needed start Azithromycin MWF for chronic bronchitis start Prednisone taper Overnight oximetry Cardiology eval, ECHO would be helpful start pulmonary rehab F/U 2-3 months Orders: Orders Pulmonary Rehab 11/19/24 J44.89 - Other specified chronic obstructive pulmonary disease Medications: New fluticasone propion-salmeterol 250-50 mcg/dose (Wixela Inhub) 1 inh inhalation Q12H 60 ea 11RF 30 days azithromycin 500 mg PO DAILY 5 tabs 0RF 5 days prednisone PO daily; Take 2 TABS DAILY x 7 days, then 1 tab daily x 7 days 21 tabs 0RF 14 days Coding Level of Care Code Est Pt Level 4 (93339) Complex EM visit Add On G2211 Diagnoses Asthma-COPD overlap syndrome J44.89 Dyspnea on exertion R06.09 Dyspnea type: dyspnea on exertion Hypoxia R09.02 Time Spent (min) 17
== END 2024-11-19 11:00 | disposition home or self-care (01) ==
LOC: HO.HPS 10:05
PROVIDERS: PCP Internal Medicine; Visit Provider Hospitalist
DX: J44.89 Other specified chronic obstructive pulmonary disease (principal); R06.09 Other forms of dyspnea; R09.02 Hypoxemia
CPT/HCPCS: 99214; G2211

== ENCOUNTER → 2024-11-19 10:04 | Outpatient (BNVA) | payer MEDICARE, SELFPAY | PROVIDERS: PCP Internal Medicine; Visit Provider Hospitalist | DX: J44.89 Other specified chronic obstructive pulmonary disease (principal); R06.09 Other forms of dyspnea; R09.02 Hypoxemia | CPT/HCPCS: 99212 ==

== ENCOUNTER 2024-12-31 10:45 | Outpatient (REF) | payer MEDICARE, SELFPAY ==
--- OUTSIDE RECORDS SUMMARY | 2024-04-22 09:30 | XMS_ITS ---
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 Role Phone Dhruv Duncan Primary Care Provider Allergies No Known Allergies REASON FOR VISIT Sick for 2 weeks with vomiting and diarrhea started with chills since 04-16-24 productive cough congestion, muscle pains, runny nose, Video [phone], Did not test for Covid Medications Medication SIG (Take, Route, Frequency, Duration) Notes Start Date End Date Status Terbinafine HCl 250 MG 1 tablet Orally O nce a day for 21 days 12/30/2022 Not-Taking Atorvastatin Calcium 80 MG TAKE ONE TABL ET BY MOUTH ONCE DAILY Active Lisinopril-hydroCHLOROthia zide 20-12.5 MG TAKE ONE TABLET BY MOUTH ONCE DAILY for 90 Active Levothyroxine Sodium 175 MCG Take 1 tablet by mouth once daily for 90 Active oxyCODONE HCl 5 MG 1 tablet as needed Orally twice a day as needed for 20 days 09/11/2023 Not-Taking Ibuprofen 800 MG 1 tablet Orally Thre e times a day for 90 days 12/04/2015 Not-Taking traMADol HCl 50 MG 1 tablet as needed Orally every 6 hrs Not-Taking Gabapentin 300 MG 1 capsule Orally onc e a day Not-Taking Vital Signs Height 72 in 04/22/2024 Weight 232 lbs 04/22/2024 BMI 31.46 kg/m2 04/22/2024 weight at home is 232 BP not taken no temp Encounters Encounter Location Date Provider Diagnosis Dhruv Duncan MD [address] [place], [place] [phone] 04/22/2024 Dhruv Duncan Gastroenteritis due to norovirus A08.11 Assessments Encounter Date Diagnosis (ICD Code) Assessment Notes Treatment Notes Treatment Clinical Notes Section Notes 04/22/2024 Gastroenteritis due to norovirus (ICD-10 - A08.11) stay away from father and other people and careful hand wahing Plan Of Treatment Treatment Notes Assessment Notes Gastroenteritis due to norovirus stay aw ay from father and other people and careful hand wahing Next Appt Details Provider Name:Dhruv Araujo ier, 01/07/2025 01:00:00 PM, [address] [facility], [address], [place], [place], [phone], Progress Notes * Ortega LANGE LDOB:[birth year] (73 yo M)Acc No.[id number]:04/22/2024 Patient: Ortega LEMON Provider: Dori Duncan MD :1950 A ge:73 Y S ex:Male Date:04/22/2024 Address:[address] [place], [place] [id number] Subjective: * Chief Complaints: * S ick for 2 weeks with vomiting and diarrhea started with chills since 2- productive cough congestion, muscle pains, runny noseVideo [phone] not test for Covid * HPI: S ymptom(s): Telehealth L ocation of provider rendering services: [address] [facility], [address], L ocation of patient: a t address listed in demographics for today's visit, P atient identification confirmed using: LATESHA Morris ame, T elehealth method: T elephone only. Patient not visible to care provider., C onsent: P atient verbally consented to treatment, Patient verbally consented to billing insurance company, Patient informed of any privacy concerns related to method of visit, T otal time spend talking with patient (minutes) 1 6. patient is a 73 yo male video telehealth, had started last week. and vomiting went away and diarrhea. nothing to eat for 2 days and just a little water. just came back from a cruise and 3 days later had it. * ROS: G eneral/Constitutional: Admits [place]. A dmits F atigue. D enies F ever. A dmits H eadache. E NT: Patient denies d ecreased sense of smell, any loss of taste, sore throat. D enies S ore throat. R espiratory: Admits Massiel ough. D enies S hortness of breath at rest. D enies S hortness of breath with exertion. A dmits S putum production. D enies W heezing. G astrointestinal: Admits D iarrhea. D enies N ausea. D enies V omiting, S tarted vomiting last week now ust diarrhea. M usculoskeletal: Patient denies m uscle aches. P eripheral Vascular: Patient denies r ed and blue toes. * Medical History: * Surgical History: * Hospitalization/Major Diagno stic Procedure: * Medications: T akingAtorvastatin Calcium 80 MG Tablet TAKE ONE TABLET BY MOUTH ONCE DAILY Levothyroxine Sodium 175 MCG Tablet Take 1 tablet by mouth once daily Lisinopril-hydroCHLOROthiazide 20-12.5 MG Tablet TAKE ONE TABLET BY MOUTH ONCE DAILY Taking Atorvastatin Calcium 80 MG Tablet TAKE ONE TABLET BY MOUTH ONCE DAILY Taking Levothyroxine Sodium 175 MCG Tablet Take 1 tablet by mouth once daily Taking Lisinopril-hydroCHLOROthiazide 20-12.5 MG Tablet TAKE ONE TABLET BY MOUTH ONCE DAILY Not-Taking/PRNoxyCODONE HCl 5 MG Tablet 1 tablet as needed Orally twice a day as needed Terbinafine HCl 250 MG Tablet 1 tablet Orally Once a day Ibuprofen 800 MG Tablet 1 tablet Orally Three times a day Gabapentin 300 MG Capsule 1 capsule Orally once a day traMADol HCl 50 MG Tablet 1 tablet as needed Orally every 6 hrs Medication List reviewed and reconciled with the patientNot-Taking/PRN oxyCODONE HCl 5 MG Tablet 1 tablet as needed Orally twice a day as needed Not-Taking/PRN Terbinafine HCl 250 MG Tablet 1 tablet Orally Once a day Not-Taking/PRN Ibuprofen 800 MG Tablet 1 tablet Orally Three times a day Not-Taking/PRN Gabapentin 300 MG Capsule 1 capsule Orally once a day Not-Taking/PRN traMADol HCl 50 MG Tablet 1 tablet as needed Orally every 6 hrs Medication List reviewed and reconciled with the patient * Allergies: N .K.D.A.yes[Allergies Verified] Objective: * Vitals: H t: 72, Wt: 232, BMI:31.46, Wt-k.23. weight at home is 232 BP not taken no temp. Assessment: * Assessment: 1. G astroenteritis due to norovirus - A08.11 (Primary) Plan: * Treatment: * Procedure Codes: * * Sign off status: Completed true * Provider: Dori Duncan MD Date: 0 04/22/2024 Generated for Ceasar beltran/Jovon/Angel on: 1 12:17 PM EDT History and Physical Notes * HPI (History of Present Illness) Category Sub-Category Detail Notes Category Not es Symptom(s) Telehealth Location of [facility] rendering services:: [address], [address] patient is a 73 yo male video telehealth, had started last week. and vomiting went away and diarrhea. nothing to eat for 2 days and just a little water. just came back from a cruise and 3 days later had it Location of patient:: at address listed in demographics for today's visit Patient identification confirmed using:: Name, Telehealth method:: Telephone only. Fiona ent not visible to care provider. Consent:: Patient verbally c onsented to treatment, Patient verbally consented to billing insurance company, Patient informed of any privacy concerns related to method of visit Total time spend talking with patient (m inutes): 16
--- OUTSIDE RECORDS SUMMARY | 2024-05-27 16:31 | XMS_ITS ---
Author Organization Dhruv Duncan MD Address [address] [place] [phone] Care Team Providers Care Livestock Haulier Name Role Phone Dhruv Duncan Primary Care Provider REASON FOR VISIT ER Encounters Encounter Location Date Provider Diagnosis Dhruv Duncan MD [address] [place] [address] [place] [phone] 05/27/2024 Dhruv Duncan Plan Of Treatment Next Appt Details Provider Name:Dhruv Araujo ier, 01/07/2025 01:00:00 PM, [address] [place] [address], Suite [facility] [place], [place], [phone], Progress Notes * Ortega LANGE LDOB:[birth year] (73 yo M)Acc No.[id number]:05/27/2024 Patient: Ortega LEMON :1950 A ge:73 Y S ex:Male Address:[address] [place] [phone] * true * Date: Generated for Printi ng/Faxing/eTransmitting on: 12:16 PM EDT
--- OUTSIDE RECORDS SUMMARY | 2024-05-27 16:33 | XMS_ITS ---
Author Organization Dhruv Duncan MD Address [address] [place] [phone] Care Team Providers Care Elevator Repairer Name Role Phone Dhruv Duncan Primary Care Provider [phone] REASON FOR VISIT ER Encounters Encounter Location Date Provider Diagnosis Dhruv Duncan MD [address] [place] [address] [place] [phone] 05/27/2024 Dhruv Duncan Plan Of Treatment Next Appt Details Provider Name:Dhruv Araujo ier, 01/07/2025 01:00:00 PM, [address] [place] [address], Suite [facility] [place], [place], [phone], Progress Notes * Ortega LANGE LDOB:[birth year] (73 yo M)Acc No.[id number]:05/27/2024 Patient: Ortega LEMON :1950 A ge:73 Y S ex:Male Address:[address] [place] [phone] * true * Date: Generated for Printi ng/Faxing/eTransmitting on: 12:17 PM EDT
--- OUTSIDE RECORDS SUMMARY | 2024-06-01 09:45 | XMS_ITS ---
Author Organization Dhruv Duncan MD Address [address] [place], [place] [phone] Care Team Providers Care Naval Engineer Name Role Phone Dhruv Duncan Primary Care Provider Allergies No Known Allergies Results Component Value Reference Range Notes Hemoglobin A1c Reviewed date:06/01/2024 01:11:54 PM Interpretation: Performing Lab: Notes/Report: Hemoglobin A1c 6.5 Glucose, finger stick Reviewed date:06/01/2024 01:05:07 PM Interpretation: Performing Lab: Notes/Report: Value 190 Reason For Referral Reason chest pressure Diagnosis 1 Chest pressure (R07. 89) Referral Organization Dhruv Duncan MD Referring Provider First Name Dhruv Referring Provider Last Name Dakota Referring Provider Speciality Internal edicine Referred Provider CORINNE VIVAR Referred Provider Specialty Cardiology General Notes Julianne Al 0 06/10/2024 02:00:11 PM >info faxedServando Annette 06/25/2024 01:07:09 PM > being worked onServando Annette 07/09/2024 01:48:06 PM >was told on the wait list Referral Priority Routine Referral Appointment Date 10/19/2024 Reason chronic obstructive pulmonary disease Diagnosis 1 Chronic obstructive pulmonary disease (J44.9) Referral Organization Dhruv Duncan MD Referring Provider First Name Dhruv Referring Provider Last Name Dakota Referring Provider Speciality Internal M edicine Referred Provider KALANI CONWAY Referred Provider Specialty Pulmonary Di seases General Notes Julianne Al 0 06/10/2024 02:00:38 PM >info Servando lorenzo Annette 06/11/2024 11:52:34 AM >info Servando nava Annette 06/14/2024 10:46:16 AM > referral info Servando nava Annette 06/18/2024 10:50:48 AM > patient is aware of appt Referral Priority Routine Referral Appointment Date 09/20/2024 REASON FOR VISIT F/U ERV COPD Medications Medication SIG (Take, Route, Frequency, Duration) Notes Start Date End Date Status traMADol HCl 50 MG 1 tablet as needed Orally every 6 hrs Not-Taking Gabapentin 300 MG 1 capsule Orally onc e a day Not-Taking Ibuprofen 800 MG 1 tablet Orally Thre e times a day for 90 days 12/04/2015 Not-Taking Terbinafine HCl 250 MG 1 tablet Orally O nce a day for 21 days 12/30/2022 Not-Taking oxyCODONE HCl 5 MG 1 tablet as needed Orally twice a day as needed for 20 days 09/11/2023 Not-Taking Albuterol Sulfate HFA 108 (90 Base) MCG/ACT 1 puff as needed Inhalation every 4 hrs for 30 days 06/01/2024 Active Lisinopril-hydroCHLOROthia zide 20-12.5 MG TAKE ONE TABLET BY MOUTH ONCE DAILY for 90 Active Levothyroxine Sodium 175 MCG Take 1 tablet by mouth once daily for 90 Active Atorvastatin Calcium 80 MG TAKE ONE TABL ET BY MOUTH ONCE DAILY Active Vital Signs Blood pressure systolic 98 mm Hg 06/02/19 25 Blood pressure diastolic 56 mm Hg 025 Height 72 in 06/01/2024 Weight 233 lbs 06/01/2024 BMI 31.6 kg/m2 06/01/2024 Encounters Encounter Location Date Provider Diagnosis Dhruv Duncan MD [address] [facility] [address] [place] [phone] 06/01/2024 Dhruv Duncan Chronic obstructive pulmonary disease, unspecified COPD type J44.9 ; Chest pressure R07.89 ; Smoker F17.200 and Type 2 diabetes mellitus treated without insulin E11.9 Assessments Encounter Date Diagnosis (ICD Code) Assessment Notes Treatment Notes Treatment Clinical Notes Section Notes 06/01/2024 Chronic obstructive pulmonary disease, unspecified COPD type (ICD-10 - J44.9) referral to pulmonology 06/01/2024 Chest pressure (ICD-10 - R07.89) referal to cardiology 06/01/2024 Smoker (ICD-10 - F17.200) has decided to quit 06/01/2024 Type 2 diabetes mellitus treated without insulin (ICD-10 - E11.9) discussed diet 06/01/2024 Other well controlled , no need for medication at this time Plan Of Treatment Medication Medication Name Sig Start Date Stop Date Notes Albuterol Sulfate HFA 108 (9 0 Base) MCG/ACT 1 puff as needed Inhalation every 4 hrs for 30 days 06/01/2024 Treatment Notes Assessment Notes Chronic obstructive pulmonar y disease, unspecified COPD type referral to pulmonology Chest pressure referal to cardiolog y Smoker has decided to quit Type 2 diabetes mellitus parminder ated without insulin discussed diet Other well controlled, no need for medication at this time Referrals Referral Date Details 06/01/2024 06/01/2024, chest pr essure, LAMAR VIVAR 06/01/2024 06/01/2024, chronic obstructive pulmonary disease, KALANI CONWAY Next Appt Details Follow Up: 3 Weeks, Reason: Provider Name:Dhruv Araujo ier, 01/07/2025 01:00:00 PM, [address] [place] [address], [address], [place], [place], [phone], Progress Notes * Ortega LANGE LDOB:[birth year] (73 yo M)Acc No.[id number]:06/01/2024 Progress Notes Patient: Martin Ortega RUSSO Martin Provider: Dori Duncan MD :1950 A ge:73 Y S ex:Male Date:06/01/2024 Address:[address] [place], [place] [phone] Subjective: * Chief Complaints: * F /U ERV COPD * HPI: S ymptom(s): patient is a 73 yo male here for follow up from recent ER visit/ quit smoking 8 months ago. this month woke up with pressure in chest. went to er and had evaluation. * ROS: G eneral/Constitutional: Denies C hills. D enies F atigue. D enies F ever. D enies H eadache. E NT: Denies S ore throat. R espiratory: Denies C ough. D enies S hortness of breath at rest. D enies S hortness of breath with exertion. G astrointestinal: Denies D iarrhea. D enies N ausea. * Medical History: * Surgical History: * [...] Objective: * Vitals: H t: 72, Wt: 233, BMI:31.6, BP:98/56, Wt-k.69. * Examination: G eneral Examination: GENERAL APPEARANCE: a lert, well hydrated, in no distress.? HEAD: n ormocephalic. SKIN: g ood turgor. HEART: r egular rate and rhythm, no murmurs, rubs, gallops.? LUNGS: n o wheezes, rales, rhonchi, good air movement, clear to auscultation bilaterally. Assessment: * Assessment: 1. C hest pressure - R07.89 (Primary) 2 . C hronic obstructive pulmonary disease, unspecified COPD type - J44.9 3 . Garcia kristy - F17.200 4 .?Type 2 diabetes mellitus treated without insulin - E11.9 Plan: * Treatment: 2. C hronic obstructive pulmonary disease, unspecified COPD type Start Albuterol Sulfate HFA Aerosol Solution, 108 (90 Base) MCG/ACT, 1 puff as needed, Inhalation, every 4 hrs, 30 days, 1, Refills 3. Notes: referral to pulmonology 3. S kristy Notes: has decided to quit 4. T ype 2 diabetes mellitus treated without insulin Notes: discussed diet 5. O thers Notes: well controlled, no need for medication at this time ? Referral To:[facility] Reason:chronic obstructive pulmonary disease * Labs: * L ab: Hemoglobin A1c (Collection Date & Time - 06/01/2024) Value Reference Range H emoglobin A1c 6.5 ?Lab: Glucose, finger stick (Collection Date & Time - 06/01/2024)* Value Reference Range V alue 190 * Procedure Codes: 8 2947 ASSAY, GLUCOSE, BLOOD QUANT, Modifiers: QW 23496 GLYCATED HEMOGLOBIN TEST, Modifiers: QW * Follow Up: 3 Weeks * * Sign off status: Completed true * Provider: Dori Duncan MD Date: 0 06/01/2024 Generated for Ceasar beltran/Jovon/eTransmitting on: 1 12:17 PM EDT History and Physical Notes * HPI (History of Present Illness) Category Sub-Category Detail Notes Category Not es Symptom(s) patient is a 73 yo male here for follow up from recent ER visit/ quit smoking 8 months ago. this month woke up with pressure in chest. went to er and had evaluation Examination Category Sub-Category Detail Notes Category Not es General Examination GENERAL APPEARANCE: alert, w ell hydrated, in no distress HEAD: normocephalic HEART: regular rate and rhy thm, no murmurs, rubs, gallops LUNGS: no wheezes, rales, r honchi, good air movement, clear to auscultation bilaterally SKIN: good turgor Consultation Request Notes Referral Date Referring Provider Referred Provider Not es 06/01/2024 Dhruv Duncan HARIHARAN c hest pressure 06/01/2024 Dhruv Duncan MIGUEL chroni c obstructive pulmonary disease
--- OUTSIDE RECORDS SUMMARY | 2024-06-28 03:30 | XMS_ITS ---
Author Organization Dhruv Duncan MD Address [address] [place], [place] [phone] Care Team Providers Care Federal Law Clerk Name Role Phone Dhruv Duncan Primary Care Provider [phone] Results Component Value Reference Range Notes Liver Panel Reviewed date:06/28/2024 12:43:59 PM Interpretation: Performing Lab:[facility], [address] [place] [phone] Notes/Report: Bilirubin Total 0.6 0.0-1.0 mg/dL Bilirubin Direct 0.2 0.0-0.5 mg/dL Aspartate Amino Transferase 31 5-37 U/L Alanine Aminotransferase 22 0-40 U/L Total Protein 7.3 6.5-8.0 g/dL Albumin Level 3.6 3.5-5.0 g/dL Alkaline Phosphatase 84 39-117 U/L Glucose Fasting Reviewed date:06/28/2024 12:42:15 PM Interpretation: Performing Lab:[facility], [address] [place] [phone] Notes/Report: Glucose Fasting 132 60-99 mg/dL A fasting glucose of 126 mg/dl or greater on more than one occasion is considered diagnostic of diabetes. Lipid Panel with Reflex Reviewed date:06/28/2024 12:44:26 PM Interpretation: Performing Lab:[facility], [address] [place] [phone] Notes/Report: Triglycerides 223 <150 mg/dL Desirable Triglyceride: less than 150 mg/dL Borderline High Triglyceride 150-199 mg/dL High Triglyceride: 200-499 mg/dL Very High Triglyceride: greater than or equal to 5OO mg/dL Cholesterol 185 <200 mg/dL Desirable Cholesterol: less than 200 mg/dL Borderline High Cholesterol: 200-239 mg/dL High Cholesterol: greater than 239 mg/dL LDL Cholesterol Calculated 103 <100 mg/dL Desirable LDL: less than 100 mg/dL Near Optimal/Above Optimal LDL: 110-129 mg/dL Borderline High LDL: 130-159 mg/dL High LDL: 160-189 mg/dL Very High LDL: greater than or equal to 190 mg/dL HDL Cholesterol 38 >40 mg/dL Desirable HDL: greater than 40 mg/dL Note: This HDL assay may give artificially low results in patients with liver disease. Hemoglobin A1c Reviewed date:06/28/2024 12:42:07 PM Interpretation: Performing Lab:[facility], [address] [place] [phone] Notes/Report: Hemoglobin A1c % 6.8 <6.0 % Hemoglobin A1C Reference Range Adults: 4.8 - 6.0 % Non diabetic: < 6.0 % Goal: < 7.0 % Additional Action Suggested: > 8.0 % Note: Hemoglobin A1c results are invalid for patients with abnormal amounts of HbF. Blood transfusions may impact the HbA1c concentration in the patient sample. Estimated Average Glucose 148 eAG = Estimated average glucose which is %A1C expressed as average glucose, using the formula of the M8I-Mwhxpsy Average Glucose study (ADAG), Diabetes Care, Vol.31,#8, Oct. 2007 REASON FOR VISIT fasting lipids Encounters Encounter Location Date Provider Diagnosis Dhruv Duncan MD [address] [place] [address] [place] [phone] 06/28/2024 Dhruv Duncan Pure hypercholestero lemia E78.00 and Type 2 diabetes mellitus treated without insulin E11.9 Assessments Encounter Date Diagnosis (ICD Code) Assessment Notes Treatment Notes Treatment Clinical Notes Section Notes 06/28/2024 Pure hypercholesterolemia (ICD-10 - E78.00) 06/28/2024 Type 2 diabetes tejal itus treated without insulin (ICD-10 - E11.9) Plan Of Treatment Next Appt Details Provider Name:Dhruv jeffers, 01/07/2025 01:00:00 PM, [address] [place] [address], Suite [facility], [place], [place], [phone], Progress Notes * Ortega LANGE LDOB:[birth year] (74 yo M)Acc No.[id number]:06/28/2024 Progress Note Patient: Ortega LEMON Provider: Dori Duncan MD :1950 A ge:73 Y S ex:Male Date:06/28/2024 Address:[address] [place], [place] [phone] Subjective: * Chief Complaints: * 1 . Fasting lipids. * Medical History: Objective: * Vitals: Assessment: * Assessment: 1. P ure hypercholesterolemia - E78.00 (Primary) 2 . T ype 2 diabetes mellitus treated without insulin - E11.9 Plan: * Treatment: 2. T ype 2 diabetes mellitus treated without insulin L AB: Liver Panel (Collection Date & Time - 06/28/2024 08:15 AM) L AB: Glucose Fasting (Collection Date & Time - 06/28/2024 08:15 AM) L AB: Lipid Panel with Reflex (Collection Date & Time - 06/28/2024 08:15 AM) L AB: Hemoglobin A1c (Collection Date & Time - 06/28/2024 08:15 AM) * Procedure Codes: 3 6415 VENIPUNCT, ROUTINE* * * The named appointment provid er may or may not be the originator of this progress note, and it is not deemed complete until electronically signed by the appointment provider. Sign off status: Pending * Provider: Dori Duncan MD Date: 0 06/28/2024 Generated for Ceasar beltran/Jovon/eTransmitting on: 1 12:16 PM EDT
--- OUTSIDE RECORDS SUMMARY | 2024-06-28 04:15 | XMS_ITS ---
Author Organization Dhruv Duncan MD Address [address] [place] [phone] Care Team Providers Care Dip Unit Operator Name Role Phone Dhruv Duncan Primary Care Provider Results Component Value Reference Range Notes Complete Blood Count Auto Di ff Reviewed date:06/28/2024 05:12:28 PM Interpretation: Performing Lab:[facility], [address] [place] [phone] Notes/Report: White Blood Count 9.8 4.8-10.8 X10*3/uL Red Blood Count 4.66 4.60-5.80 X10*6/uL Hemoglobin 13.2 14.0-18.0 g/dl Hematocrit 41.3 42.0-52.0 % Mean Corpuscular Volume 88.6 80.0-98.0 fL Mean Corpuscular Hemoglobin 28.3 27.0-33.0 pg Mean Corpuscular HGB Conc 32.0 31.0-36.0 g/dl Red Cell Distribution Width 14.7 11.0-16.0 % Platelet Count 246 160-400 X10*3/uL Mean Platelet Volume 9.5 9.4-12.4 fL Neutrophils Percent Auto 55.6 45-73 % Imm Gran Pct Auto 0.4 0.0-0.4 % Lymphocytes Percent Auto 29.3 20-40 % Monocytes Percent Auto 9.5 2-11 % Eosinophils Percent Auto 4.9 0-4 % Basophils Percent Auto 0.3 0-2 % NRBC Pct Auto 0.0 0.0-0.2 /100WBC Neutrophils Absolute Auto 5.5 2.0-8.3 x10*3/u L Imm Gran Abs Auto 0.04 0.00-0.03 X10*3/uL Lymphocytes Absolute Auto 2.9 1.2-4.9 X10*3/u L Monocytes Absolute Auto 0.9 0.1-1.2 X10*3/uL Eosinophils Absolute Auto 0.5 0.0-0.4 X10*3/u L Basophils Absolute Auto 0.0 0.0-0.2 X10*3/uL NRBC Abs Auto 0.000 0.0-0.012 X10*3/uL REASON FOR VISIT CBC Encounters Encounter Location Date Provider Diagnosis Dhruv Duncan MD [address] [place] [address] [place] [phone] 06/28/2024 Dhruv Duncan Anemia D64.9 Assessments Encounter Date Diagnosis (ICD Code) Assessment Notes Treatment Notes Treatment Clinical Notes Section Notes 06/28/2024 Anemia (ICD-10 - D64.9) Plan Of Treatment Next Appt Details Provider Name:Dhruv Araujo ier, 01/07/2025 01:00:00 PM, [address] [place] [address], Suite [facility], [place], [place], [phone], Progress Notes * Ortega LANGE LDOB:[birth year] (74 yo M)Acc No.[id number]:06/28/2024 Progress Note Patient: Ortega LEMON Provider: Dori Duncan MD :1950 A ge:73 Y S ex:Male Date:06/28/2024 Address:[address] [place], [place] [phone] Subjective: * Chief Complaints: * 1 . CBC. * Medical History: Objective: * Vitals: Assessment: * Assessment: 1. A nemia - D64.9 (Primary) Plan: * Treatment: * Procedure Codes: 3 6415 VENIPUNCT, ROUTINE* * * The named appointment provid er may or may not be the originator of this progress note, and it is not deemed complete until electronically signed by the appointment provider. Sign off status: Pending * Provider: Dori Duncan MD Date: 0 06/28/2024 Generated for Ceasar beltran/Jovon/Angel on: 1 12:16 PM EDT
--- OUTSIDE RECORDS SUMMARY | 2024-07-05 10:00 | XMS_ITS ---
Author Organization Dhruv Duncan MD Address [address] [place] [phone] Care Team Providers Care Repeat Chief Name Role Phone Dhruv Duncan Primary Care Provider [phone] Allergies No Known Allergies REASON FOR VISIT 6 month Medications Medication SIG (Take, Route, Frequency, Duration) Notes Start Date End Date Status Ibuprofen 800 MG 1 tablet Orally Thre e times a day for 90 days 12/04/2015 Not-Taking traMADol HCl 50 MG 1 tablet as needed Orally every 6 hrs Not-Taking Gabapentin 300 MG 1 capsule Orally onc e a day Not-Taking metFORMIN HCl 500 MG 1 tablet with a jaky l Orally Once a day for 30 day(s) 07/05/2024 Active Atorvastatin Calcium 80 MG TAKE ONE TABL ET BY MOUTH ONCE DAILY Active Lisinopril-hydroCHLOROthia zide 20-12.5 MG TAKE ONE TABLET BY MOUTH ONCE DAILY for 90 Active oxyCODONE HCl 5 MG 1 tablet as needed Orally twice a day as needed for 20 days 09/11/2023 Not-Taking Albuterol Sulfate HFA 108 (90 Base) MCG/ACT 1 puff as needed Inhalation every 4 hrs for 30 days 06/01/2024 Active Terbinafine HCl 250 MG 1 tablet Orally O nce a day for 21 days 12/30/2022 Not-Taking Levothyroxine Sodium 175 MCG Take 1 tablet by mouth once daily for 90 Active Vital Signs Blood pressure systolic 118 mm Hg 07/06/19 25 Blood pressure diastolic 70 mm Hg 025 Height 72 in 07/05/2024 Weight 240 lbs 07/05/2024 BMI 32.55 kg/m2 07/05/2024 weight is up 7 pounds since 06-01-24 Encounters Encounter Location Date Provider Diagnosis Dhruv Duncan MD [address] [place] [address] [place] [phone] 07/05/2024 Dhruv Duncan Type 2 diabetes tejal itus treated without insulin E11.9 ; Pure hypercholesterolemia E78.00 and Anemia, unspecified type D64.9 Assessments Encounter Date Diagnosis (ICD Code) Assessment Notes Treatment Notes Treatment Clinical Notes Section Notes 07/05/2024 Type 2 diabetes mellitus treated without insulin (ICD-10 - E11.9) patient verbalized understanding of medication nd directions for use, also advised on diet and exercise 07/05/2024 Pure hypercholesterolemia (ICD-10 - E78.00) stable,nort at goal, will continue current medication, advised on diet and exerise 07/05/2024 Anemia, unspecified type (ICD-10 - D64.9) will continue to monitor Plan Of Treatment Medication Medication Name Sig Start Date Stop Date Notes metFORMIN HCl 500 MG 1 tablet with a jaky l Orally Once a day for 30 day(s) 07/05/2024 Atorvastatin Calcium 80 MG TAKE ONE TABL ET BY MOUTH ONCE DAILY Treatment Notes Assessment Notes Type 2 diabetes mellitus parminder ated without insulin patient verbalized understanding of medication nd directions for use, also advised on diet and exercise Pure hypercholesterolemia stable,nort at goal, will continue current medication, advised on diet and exerise Anemia, unspecified type will continue t o monitor Next Appt Details Follow Up: 3 Months, Reason: Provider Name:Dhruv jeffers, 01/07/2025 01:00:00 PM, [address] [place] [address], [address], [place], [place], [phone], Progress Notes * Ortega LANGE LDOB:[birth year] (73 yo M)Acc No.[id number]:07/05/2024 Progress Notes Patient: Ortega LEMON Provider: Dori Duncan MD :1950 A ge:73 Y S ex:Male Date:07/05/2024 Address:[address] [place], [place] [phone] Subjective: * Chief Complaints: * 6 month * HPI: S ymptom(s): patient ia 73 yo male here for 6 mponth follow up visit/ did not get any benefit with albuterol. * ROS: G eneral/Constitutional: [place]. [place]ano enies F atigue. D enies F ever. D enies H eadache. E NT: Denrebekah S ore throat. R espiratory: [place] Rankin ough. [place] enrebekah S hortness of breath at rest. D enies S hortness of breath with exertion. G astrointestinal: [place] Freedman iarrhea. D enrebekah N ausea. * Medical History: * Surgical History: * Hospitalization/Major Diagno stic Procedure: * Medications: T akingAtorvastatin Calcium 80 MG Tablet TAKE ONE TABLET BY MOUTH ONCE DAILY Levothyroxine Sodium 175 MCG Tablet Take 1 tablet by mouth once daily Lisinopril-hydroCHLOROthiazide 20-12.5 MG Tablet TAKE ONE TABLET BY MOUTH ONCE DAILY Albuterol Sulfate HFA 108 (90 Base) MCG/ACT Aerosol Solution 1 puff as needed Inhalation every 4 hrs Taking Atorvastatin Calcium 80 MG Tablet TAKE ONE TABLET BY MOUTH ONCE DAILY Taking Levothyroxine Sodium 175 MCG Tablet Take 1 tablet by mouth once daily Taking Lisinopril-hydroCHLOROthiazide 20-12.5 MG Tablet TAKE ONE TABLET BY MOUTH ONCE DAILY Taking Albuterol Sulfate HFA 108 (90 Base) MCG/ACT Aerosol Solution 1 puff as needed Inhalation every 4 hrs Not-Taking/PRNoxyCODONE HCl 5 MG Tablet 1 tablet [...] Capsule 1 capsule Orally once a day Not- Taking/PRN traMADol HCl 50 MG Tablet 1 tablet as needed Orally every 6 hrs Medication List reviewed and reconciled with the patient * Allergies: N .K.D.A.yes[Allergies Verified] Objective: * Vitals: H t: 72, Wt: 240, BMI:32.55, BP:118/70, Wt-k.86. weight is up 7 pounds since 06-01-24. * P ast Orders: L ab:Hemoglobin A1c (Order Date 06/28/2024) (Collection Date & Time - 06/28/2024 08:15 AM) Value Reference Range Hemoglobin A1c % 6.8 H <6.0 - % Estimated Average Glucose 148 - mg/dL L ab:Lipid Panel with Reflex (Order Date 06/28/2024) (Collection Date & Time 06/28/2024 08:15 AM) Value Reference Range Triglycerides 223 H <150 - mg/dL Cholesterol 185 <200 - mg/dL LDL Cholesterol Calculated 103 H <100 - mg/dL HDL Cholesterol 38 L >40 - mg/dL L ab:Glucose Fasting (Order Date 06/28/2024) (Collection Date & Time - 06/28/2024 08:15 AM) Value Reference Range Glucose Fasting 132 H 60-99 - mg/dL L ab:Liver Panel (Order Date 06/28/2024) (Collection Date & Time 06/28/2024 08:15 AM) Value Reference Range Bilirubin Total 0.6 0.0-1.0 - mg/dL Bilirubin Direct 0.2 0.0-0.5 - mg/dL Aspartate Amino Transferase 31 5-37 - U/L Alanine Aminotransferase 22 0-40 - U/L Total Protein 7.3 6.5-8.0 - g/dL Albumin Level 3.6 3.5-5.0 - g/dL Alkaline Phosphatase 84 39-117 - U/L L ab:Complete Blood Count Auto Diff (Order Date 06/28/2024) (Collection Date & Time 06/28/2024 08:15 AM) Value Reference Range White Blood Count 9.8 4.8-10.8 - X10*3/uL Red Blood Count 4.66 4.60-5.80 - X10*6/uL Hemoglobin 13.2 L 14.0-18.0 - g/dl Hematocrit 41.3 L 42.0-52.0 - % Mean Corpuscular Volume 88.6 80.0-98.0 - fL Mean Corpuscular Hemoglobin 28.3 27.0-33.0 - pg Mean Corpuscular HGB Conc 32.0 31.0-36.0 - g/ dl Red Cell Distribution Width 14.7 11.0-16.0 - % Platelet Count 246 160-400 - X10*3/uL Mean Platelet Volume 9.5 9.4-12.4 - fL Neutrophils Percent Auto 55.6 45-73 - % Imm Gran Pct Auto 0.4 0.0-0.4 - % Lymphocytes Percent Auto 29.3 20-40 - % Monocytes Percent Auto 9.5 2-11 - % Eosinophils Percent Auto 4.9 H 0-4 - % Basophils Percent Auto 0.3 0-2 - % NRBC Pct Auto 0.0 0.0-0.2 - /100WBC Neutrophils Absolute Auto 5.5 2.0-8.3 - x10* 3/uL Imm Gran Abs Auto 0.04 H 0.00-0.03 - X10*3/uL Lymphocytes Absolute Auto 2.9 1.2-4.9 - X10* 3/uL Monocytes Absolute Auto 0.9 0.1-1.2 - X10*3/ uL Eosinophils Absolute Auto 0.5 H 0.0-0.4 - X10* 3/uL Basophils Absolute Auto 0.0 0.0-0.2 - X10*3/ uL NRBC Abs Auto 0.000 0.0-0.012 - X10*3/uL * Examination: G eneral Examination: GENERAL APPEARANCE: a lert, well hydrated, in no distress.? HEAD: n ormocephalic. SKIN: g ood turgor. HEART: n o murmurs, rubs, gallops, regular rate and rhythm.? LUNGS: n o wheezes, rales, rhonchi, good air movement, clear to auscultation bilaterally. Assessment: * Assessment: 1. T ype 2 diabetes mellitus treated without insulin - E11.9 (Primary) 2 . P ure hypercholesterolemia - E78.00 3 . A nemia, unspecified type - D64.9 ? Plan: * Treatment: 2. P ure hypercholesterolemia Continue Atorvastatin Calcium Tablet, 80 MG, TAKE ONE TABLET BY MOUTH ONCE DAILY. Notes: stable,nort at goal, will continue current medication, advised on diet and exerise ? 3. A nemia, unspecified type Notes: will continue to monitor * Procedure Codes: * Follow Up: 3 Months * * Sign off status: Completed true * Provider: Dori Duncan MD Date: 0 07/05/2024 Generated for Ceasar beltran/Jovon/Ninaitting on: 1 12:17 PM EDT History and Physical Notes * HPI (History of Present Illness) Category Sub-Category Detail Notes Category Not es Symptom(s) patient ia 73 y o male here for 6 mponth follow up visit/ did not get any benefit with albuterol. Examination Category Sub-Category Detail Notes Category Not es General Examination GENERAL APPEARANCE: alert, w ell hydrated, in no distress HEAD: normocephalic HEART: no murmurs, rubs, ga llops, regular rate and rhythm LUNGS: no wheezes, rales, r honchi, good air movement, clear to auscultation bilaterally SKIN: good turgor
--- OUTSIDE RECORDS SUMMARY | 2024-07-08 09:54 | XMS_ITS ---
Author Organization Dhruv Duncan MD Address [address] [place] [phone] Care Team Providers Care Telegraph Service Clerk Name Role Phone Dhruv Duncan Primary Care Provider REASON FOR VISIT REFILL LISINOPRIL Medications Medication SIG (Take, Route, Frequency, Duration) Notes Start Date End Date Status Lisinopril-hydroCHLOROthia zide 20-12.5 MG TAKE ONE TABLET BY MOUTH ONCE DAILY for 90 days Active Encounters Encounter Location Date Provider Diagnosis Dhruv Duncan MD [address] [place] [phone] 07/08/2024 Dhruv Duncan Essential hypertension I10 Assessments Encounter Date Diagnosis (ICD Code) Assessment Notes Treatment Notes Treatment Clinical Notes Section Notes 07/08/2024 Essential hypertension (ICD-10 - I10) Plan Of Treatment Medication Medication Name Sig Start Date Stop Date Notes Lisinopril-hydroCHLOROthiazi de 20-12.5 MG TAKE ONE TABLET BY MOUTH ONCE DAILY for 90 days Next Appt Details Provider Name:Dhruv Araujo ier, 01/07/2025 01:00:00 PM, [address], Suite [facility], [place], [place], [phone], Progress Notes * Ortega LANGE LDOB:[birth year] (73 yo M)Acc No.[id number]:07/08/2024 Patient: Ortega LEMON :1950 A ge:73 Y S ex:Male Address:[address] [place] [phone] * Refills Refill Lisinopril-hydroCHLOROthiazide Tablet, 20-12.5 MG, TAKE ONE TABLET BY MOUTH ONCE DAILY, 90 days, Refills=0 * true * Date: Generated for Ceasar beltran/Jovon/Angel on: 1 12:16 PM EDT
--- OUTSIDE RECORDS SUMMARY | 2024-10-12 05:00 | XMS_ITS ---
Author Organization Dhruv Duncan MD Address [address] [place] [id number] Care Team Providers Care Chief Medical Technologist Name Role Phone Dhruv Duncan Primary Care Provider [phone] Allergies No Known Allergies Results Component Value Reference Range Notes Hemoglobin A1c Reviewed date:10/12/2024 09:20:18 AM Interpretation: Performing Lab: Notes/Report: Hemoglobin A1c 6.6 Glucose, finger stick Reviewed date:10/12/2024 09:06:37 AM Interpretation: Performing Lab: Notes/Report: Value 152 REASON FOR VISIT 3 MO F/U Medications Medication SIG (Take, Route, Frequency, Duration) [...] a day Not-Taking metFORMIN HCl 500 MG Take [address] [facility] once a day for 30 day(s) with a meal Active Lisinopril-hydroCHLOROthia zide 20-12.5 MG TAKE ONE TABLET BY MOUTH ONCE DAILY for 90 days Active Atorvastatin Calcium 80 MG TAKE ONE TABL ET BY MOUTH ONCE DAILY Active oxyCODONE HCl 5 MG 1 tablet as needed Orally twice a day as needed for 20 days 09/11/2023 Not-Taking Levothyroxine Sodium 175 MCG Take 1 tablet by mouth once daily for 90 Active Albuterol Sulfate HFA 108 (90 Base) MCG/ACT 1 puff as needed Inhalation every 4 hrs for 30 days 06/01/2024 Active Tadalafil 20 MG 1 tablet as needed Orally Once a day for 30 days 10/12/2024 Active Vital Signs Blood pressure systolic 132 mm Hg 10/13/19 25 Blood pressure diastolic 70 mm Hg 025 Height 72 in 10/12/2024 Weight 242 lbs 10/12/2024 BMI 32.82 kg/m2 10/12/2024 Encounters Encounter Location Date Provider Diagnosis Dhruv Duncan MD [address] [place] [id number] 10/12/2024 Dhruv Duncan Type 2 diabetes mellitus treated without insulin E11.9 and Erectile disorder N52.9 Assessments Encounter Date Diagnosis (ICD Code) Assessment Notes Treatment Notes Treatment Clinical Notes Section Notes 10/12/2024 Type 2 diabetes mellitus treated without insulin (ICD-10 - E11.9) doing well on meds, will continue current regiment 10/12/2024 Erectile disorder (ICD-10 - N52.9) patient verbalized understanding of medication and directions for use Plan Of Treatment Medication Medication Name Sig Start Date Stop Date Notes metFORMIN HCl 500 MG Take 1 tablet by mo ut once a day for 30 day(s) with a meal Tadalafil 20 MG 1 tablet as needed O rally Once a day for 30 days 10/12/2024 Treatment Notes Assessment Notes Type 2 diabetes mellitus parminder ated without insulin doing well on meds, will continue curren t regiment Erectile disorder patient verbalized u nderstanding of medication and directions for use Next Appt Details Provider Name:Dhruv Araujo ier, 01/07/2025 01:00:00 PM, [address], [address], [place], [place], [phone], Progress Notes * Ortega LANGE LDOB:[birth year] (74 yo M)Acc No.[id number]:10/12/2024 Progress Notes Patient: Ortega LEMON Provider: Dori Duncan MD :1950 A ge:74 Y S ex:Male Date:10/12/2024 Address:[address] [place] [id number] Subjective: * Chief Complaints: * 3 MO F/U * HPI: S ymptom(s): patient is a 74 yo male here for 3 month follow up visit. * ROS: G eneral/Constitutional: Denies [place]. D enies F atigue. D enies F ever. D enies H eadache. E NT: Denies S ore throat. E ndocrine: Denies D ifficulty sleeping. D enies D izziness.?Denies E xcessive sweating. D enies E xcessive thirst. D enies F requent urination. R espiratory: Denies C ough. D enies S hortness of breath at rest. D enies S hortness of breath with exertion. C ardiovascular: Denies C hest pain at rest. D enies C hest pain with exertion. D enies D izziness. D enies P alpitations. D enies S hortness of breath. G astrointestinal: Denies D iarrhea. D enies N ausea. * Medical History: * Surgical History: * Hospitalization/Major Diagno stic Procedure: * Medications: T akingLevothyroxine Sodium 175 MCG Tablet Take 1 tablet by mouth once daily Albuterol Sulfate HFA 108 (90 Base) MCG/ACT Aerosol Solution 1 puff as needed Inhalation every 4 hrs Atorvastatin Calcium 80 MG Tablet TAKE ONE TABLET BY MOUTH ONCE DAILY Lisinopril-hydroCHLOROthiazide 20-12.5 MG Tablet TAKE ONE TABLET BY MOUTH ONCE DAILY metFORMIN HCl 500 MG Tablet Take 1 tablet by mouth once a day for 30 day(s) with a meal Taking Levothyroxine Sodium 175 MCG Tablet Take 1 tablet by mouth once daily Taking Albuterol Sulfate HFA 108 (90 Base) MCG/ACT Aerosol Solution 1 puff as needed Inhalation every 4 hrs Taking Atorvastatin Calcium 80 MG Tablet TAKE ONE TABLET BY MOUTH ONCE DAILY Taking Lisinopril-hydroCHLOROthiazide 20-12.5 MG Tablet TAKE ONE TABLET BY MOUTH ONCE DAILY Taking metFORMIN HCl 500 MG Tablet Take 1 tablet by mouth once a day for 30 day(s) with a meal Not-Taking/PRNoxyCODONE HCl 5 MG Tablet 1 tablet [...] Objective: * Vitals: H t: 72, Wt: 242, BMI:32.82, BP:132/70, Wt-k.77. Assessment: * Assessment: 1. T ype 2 diabetes mellitus treated without insulin - E11.9 (Primary) 2 . E rectile disorder - N52.9 Plan: * Treatment: 2. E rectile disorder Start Tadalafil Tablet, 20 MG, 1 tablet as needed, Orally, Once a day, 30 days, 30, Refills 3. Notes: patient verbalized understanding of medication and directions for use * Labs: * L ab: Hemoglobin A1c (Collection Date & Time - 10/12/2024) Value Reference Range H emoglobin A1c 6.6 ?Lab: Glucose, finger stick (Collection Date & Time - 10/12/2024)* Value Reference Range V alue 152 * Procedure Codes: 8 2947 ASSAY, GLUCOSE, BLOOD QUANT, Modifiers: QW 09901 GLYCATED HEMOGLOBIN TEST, Modifiers: QW * * Sign off status: Completed true * Provider: Dori Duncan MD Date: 0 10/12/2024 Generated for Ceasar beltran/Jovon/Angel on: 1 12:16 PM EDT History and Physical Notes * HPI (History of Present Illness) Category Sub-Category Detail Notes Category Not es Symptom(s) patient is a 74 yo male here for 3 month follow up visit
--- OUTSIDE RECORDS SUMMARY | 2024-12-31 04:15 | XMS_ITS ---
Author Organization Dhruv Duncan MD Address [address] [place], [place] [id number] Care Team Providers Care Street And Building Decorator Name Role Phone Dhruv Duncan Primary Care Provider Results Component Value Reference Range Notes Comprehensive Cunningham. Panel Fa st (Not yet reviewed by provider) Interpretation: Performing Lab:[address] [phone] Notes/Report: Sodium 142 135-145 mmol/L Potassium 4.3 3.3-5.1 mmol/L Chloride 104 96-108 mmol/L Carbon Dioxide 31 22-29 mmol/L Anion Gap 11 12-20 Blood Urea Nitrogen 21 9-16 mg/dL Creatinine 1.17 0.5-1.4 mg/dL Estimated Glomerular Filt Rate > 60 Chronic Kidney Disease: Estimated GFR < 60 mL/min/1.73m2 Severe Kidney Disease: Estimated GFR < 15 mL/min/1.73m2 Glucose Fasting 123 60-99 mg/dL A fasting glucose from 100-125 mg/dl is considered impaired (pre-diabetes). Calcium 8.9 8.4-10.2 mg/dL Bilirubin Total 0.5 0.0-1.0 mg/dL Aspartate Amino Transferase 41 5-37 U/L Alanine Aminotransferase 39 0-40 U/L Total Protein 7.1 6.5-8.0 g/dL Albumin Level 4.0 3.5-5.0 g/dL Alkaline Phosphatase 94 39-117 U/L Lipid Panel (Not yet reviewe d by provider) Interpretation: Performing Lab:[facility] [id number] Notes/Report: Triglycerides 245 <150 mg/dL Desirable Triglyceride: less than 150 mg/dL Borderline High Triglyceride 150-199 mg/dL High Triglyceride: 200-499 mg/dL Very High Triglyceride: greater than or equal to 5OO mg/dL Cholesterol 202 <200 mg/dL Desirable Cholesterol: less than 200 mg/dL Borderline High Cholesterol: 200-239 mg/dL High Cholesterol: greater than 239 mg/dL LDL Cholesterol Calculated 116 <100 mg/dL Desirable LDL: less than 100 mg/dL Near Optimal/Above Optimal LDL: 110-129 mg/dL Borderline High LDL: 130-159 mg/dL High LDL: 160-189 mg/dL Very High LDL: greater than or equal to 190 mg/dL HDL Cholesterol 37 >40 mg/dL Desirable HDL: greater than 40 mg/dL Note: This HDL assay may give artificially low results in patients with liver disease. PSA,Total (Free>4and<10) (No t yet reviewed by provider) Interpretation: Performing Lab:[address] [phone] Notes/Report: PSA,Total (Free>4and<10) 0.61 0.00-4.00 ng/mL A Free PSA was not [...] Microparticle Immunoassay (CMIA) TSH reflex Free T4 (Not yet reviewed by provider) Interpretation: Performing Lab:[address] [phone] Notes/Report: TSH reflex Free T4 1.91 0.32-4.0 uIU/mL Microalbumin, Random (Not ye t reviewed by provider) Interpretation: Performing Lab:[address] [phone] Notes/Report: Creatinine Urine 112.83 Microalbumin Urine 6.0 Microalbum/Creatinine Ratio Ur 5.3 <30 ug/mg cr Albumin/Creatinine Ratio Reference Ranges: Normal: < 30 ug/mg creatinine Microalbuminuria: 30 - 300 ug/mg creatinine Clinical Albuminuria: > 300 ug/mg creatinine Complete Blood Count Auto Di ff Reviewed date:12/31/2024 11:32:02 AM Interpretation: Performing Lab:[facility], [address] [place] [phone] Notes/Report: White Blood Count 9.3 4.8-10.8 X10*3/uL Red Blood Count 5.19 4.60-5.80 X10*6/uL Hemoglobin 14.8 14.0-18.0 g/dl Hematocrit 47.8 42.0-52.0 % Mean Corpuscular Volume 92.1 80.0-98.0 fL Mean Corpuscular Hemoglobin 28.5 27.0-33.0 pg Mean Corpuscular HGB Conc 31.0 31.0-36.0 g/dl Red Cell Distribution Width 14.1 11.0-16.0 % Platelet Count 238 160-400 X10*3/uL Mean Platelet Volume 9.8 9.4-12.4 fL Neutrophils Percent Auto 52.4 45-73 % Imm Gran Pct Auto 0.5 0.0-0.4 % Lymphocytes Percent Auto 32.7 20-40 % Monocytes Percent Auto 10.2 2-11 % Eosinophils Percent Auto 3.8 0-4 % Basophils Percent Auto 0.4 0-2 % NRBC Pct Auto 0.0 0.0-0.2 /100WBC Neutrophils Absolute Auto 4.9 2.0-8.3 x10*3/u L Imm Gran Abs Auto 0.05 0.00-0.03 X10*3/uL Lymphocytes Absolute Auto 3.0 1.2-4.9 X10*3/u L Monocytes Absolute Auto 1.0 0.1-1.2 X10*3/uL Eosinophils Absolute Auto 0.4 0.0-0.4 X10*3/u L Basophils Absolute Auto 0.0 0.0-0.2 X10*3/uL NRBC Abs Auto 0.000 0.0-0.012 X10*3/uL Hemoglobin A1c Reviewed date:12/31/2024 12:06:45 PM Interpretation: Performing Lab:[facility], [address] [place] [phone] Notes/Report: Hemoglobin A1c % 6.4 <6.0 % Hemoglobin A1C Reference Range Adults: 4.8 - 6.0 % Non diabetic: < 6.0 % Goal: < 7.0 % Additional Action Suggested: > 8.0 % Note: Hemoglobin A1c results are invalid for patients with abnormal amounts of HbF. Blood transfusions may impact the HbA1c concentration in the patient sample. Estimated Average Glucose 137 eAG = Estimated average glucose which is %A1C expressed as average glucose, using the formula of the F3Z-Rbancde Average Glucose study (ADAG), Diabetes Care, Vol.31,#8, Oct. 2007 UA ClnCatch+Micro w/rflx Cul t Reviewed date:12/31/2024 11:29:18 AM Interpretation: Performing Lab:[facility], [address] [place] [phone] Notes/Report: Urine, Clean Catch Color Urine Yellow Appearance Urine Clear PH 5.5 5.0-9.0 Glucose Urine UA Negative Negative mg/dL Urine Blood Negative Negative Specific [place] - Urine 1.020 1.005-1.025 Urine Protein Negative Neg-Trace mg/dL Urine Ketones Negative Negative mg/dL Nitrite Urine Negative Negative Leukocyte Esterase Urine Negative Negative RBC Urine 0-2 0-2 /HPF WBC Urine 0-5 0-5 /HPF Squamous Epithelial Cell Urine 0-2 0-2 /HPF Bacteria Urine None Seen None Seen Hyaline Casts Urine 0-2 0-2 /LPF REASON FOR VISIT yearly fasting labs Encounters Encounter Location Date Provider Diagnosis Dhruv Duncan MD [address] [place] [address] Drive [address] [place], [place] [id number] 12/31/2024 Dhruv Duncan Essential hypertensi on I10 ; Pure hypercholesterolemia E78.00 ; Type 2 diabetes mellitus treated without insulin E11.9 and Acquired hypothyroidism E03.9 Assessments Encounter Date Diagnosis (ICD Code) Assessment Notes Treatment Notes Treatment Clinical Notes Section Notes 12/31/2024 Essential hypertensi on (ICD-10 - I10) 12/31/2024 Pure hypercholesterolemia (ICD-10 - E78.00) 12/31/2024 Type 2 diabetes tejal itus treated without insulin (ICD-10 - E11.9) 12/31/2024 Acquired hypothyroid ism (ICD-10 - E03.9) Plan Of Treatment Pending Test Test Name Order Date Comprehensive Cunningham. Panel Fast Lipid Panel 12/31/2024 PSA,Total (Free>4and<10) 12/31/2024 TSH reflex Free T4 12/31/2024 Microalbumin, Random 12/31/2024 Next Appt Details Provider Name:Dhruv Araujo ier, 01/07/2025 01:00:00 PM, [address] [place] [address], [address], [place], [phone], Progress Notes * Ortega LANGE LDOB:[birth year] (74 yo M)Acc No.[id number]:12/31/2024 Progress Note Patient: Ortega LEMON Provider: Dori Duncan MD :1950 A ge:74 Y S ex:Male Date:12/31/2024 Address:[address] [place], [place] [id number] Subjective: * Chief Complaints: * 1 . Yearly fasting labs. * Medical History: Objective: * Vitals: Assessment: * Assessment: 1. E ssential hypertension - I10 (Primary) 2 . P ure hypercholesterolemia - E78.00 3 . T ype 2 diabetes mellitus treated without insulin - E11.9 4 . A cquired hypothyroidism - E03.9 Plan: * Treatment: 2. P ure hypercholesterolemia L AB: Comprehensive Cunningham. Panel Fast (Collection Date & Time - 12/31/2024 10:49 AM) L AB: Lipid Panel (Collection Date & Time - 12/31/2024 10:49 AM) L AB: PSA,Total (Free>4and<10) (Collection Date & Time - 12/31/2024 10:49 AM) L AB: TSH reflex Free T4 (Collection Date & Time - 12/31/2024 10:49 AM) L AB: Microalbumin, Random (Collection Date & Time - 12/31/2024 10:49 AM) L AB: Complete Blood Count Auto Diff (Collection Date & Time - 12/31/2024 10:49 AM) L AB: Hemoglobin A1c (Collection Date & Time - 12/31/2024 10:49 AM) L AB: UA ClnCatch+Micro w/rflx Cult (Collection Date & Time - 12/31/2024 10:49 AM) 3. T ype 2 diabetes mellitus treated without insulin L AB: Comprehensive Cunningham. Panel Fast (Collection Date & Time - 12/31/2024 10:49 AM) L AB: Lipid Panel (Collection Date & Time - 12/31/2024 10:49 AM) L AB: PSA,Total (Free>4and<10) (Collection Date & Time - 12/31/2024 10:49 AM) L AB: TSH reflex Free T4 (Collection Date & Time - 12/31/2024 10:49 AM) L AB: Microalbumin, Random (Collection Date & Time - 12/31/2024 10:49 AM) L AB: Complete Blood Count Auto Diff (Collection Date & Time - 12/31/2024 10:49 AM) L AB: Hemoglobin A1c (Collection Date & Time - 12/31/2024 10:49 AM) L AB: UA ClnCatch+Micro w/rflx Cult (Collection Date & Time - 12/31/2024 10:49 AM) 4. A cquired hypothyroidism L AB: Comprehensive Cunningham. Panel Fast (Collection Date & Time - 12/31/2024 10:49 AM) L AB: Lipid Panel (Collection Date & Time - 12/31/2024 10:49 AM) L AB: PSA,Total (Free>4and<10) (Collection Date & Time - 12/31/2024 10:49 AM) L AB: TSH reflex Free T4 (Collection Date & Time - 12/31/2024 10:49 AM) L AB: Microalbumin, Random (Collection Date & Time - 12/31/2024 10:49 AM) L AB: Complete Blood Count Auto Diff (Collection Date & Time - 12/31/2024 10:49 AM) L AB: Hemoglobin A1c (Collection Date & Time - 12/31/2024 10:49 AM) L AB: UA ClnCatch+Micro w/rflx Cult (Collection Date & Time - 12/31/2024 10:49 AM) * Procedure Codes: 3 6415 VENIPUNCT, ROUTINE* * * The named appointment provid er may or may not be the originator of this progress note, and it is not deemed complete until electronically signed by the appointment provider. Sign off status: Pending * Provider: Dori Duncan MD Date: Generated for Ceasar beltran/Jovon/Angel on: 12:17 PM EDT
[2024-12-31 10:51] LABS: MANUAL DIFF FLAG NO
[2024-12-31 11:17] LABS: Appearance Urine Clear; Glucose Urine UA Negative (Negative); PH 5.5 (5.0-9.0); Specific Gravity - Urine 1.020 (1.005-1.025)
[2024-12-31 11:19] LABS: Hematocrit 47.8 % (42.0-52.0); Hemoglobin 14.8 g/dl (14.0-18.0); Imm Gran Abs Auto 0.05 X10*3/uL (0.00-0.03); Imm Gran Pct Auto 0.5 % (0.0-0.4); Lymphocytes Absolute Auto 3.0 X10*3/uL (1.2-4.9); Mean Corpuscular HGB Conc 31.0 g/dl (31.0-36.0); Mean Corpuscular Hemoglobin 28.5 pg (27.0-33.0); Mean Corpuscular Volume 92.1 fL (80.0-98.0); NRBC Abs Auto 0.000 X10*3/uL (0.0-0.012); NRBC Pct Auto 0.0 /100WBC (0.0-0.2); Platelet Count 238 X10*3/uL (160-400); Red Blood Count 5.19 X10*6/uL (4.60-5.80); White Blood Count 9.3 X10*3/uL (4.8-10.8)
[2024-12-31 11:51] LABS: Alanine Aminotransferase 39 U/L (0-40); Albumin Level 4.0 g/dL (3.5-5.0); Alkaline Phosphatase 94 U/L (39-117); Anion Gap 11 (12-20); Aspartate Amino Transferase 41 U/L (5-37); Blood Urea Nitrogen 21 mg/dL (9-16); Calcium 8.9 mg/dL (8.4-10.2); Carbon Dioxide 31 mmol/L (22-29); Chloride 104 mmol/L (96-108); Cholesterol 202 mg/dL (<200); Estimated Glomerular Filt Rate > 60; HDL Cholesterol 37 mg/dL (>40); Potassium 4.3 mmol/L (3.3-5.1); Sodium 142 mmol/L (135-145); Total Protein 7.1 g/dL (6.5-8.0); Triglycerides 245 mg/dL (<150)
[2024-12-31 12:11] LABS: PSA,Total (Free>4and<10) 0.61 ng/mL (0.00-4.00)
[2024-12-31 12:13] LABS: Microalbum/Creatinine Ratio Ur 5.3 ug/mg cr (<30)
--- OUTSIDE RECORDS SUMMARY | 2024-12-31 12:16 | XMS_ITS | Patient Health Record ---
Author Organization Dhruv Duncan MD Address [address] [place], [place] [address] Care Team Providers Care Metallurgy Laboratory Technician Name Role Phone Dhruv Duncan Primary Care Provider [phone] Allergies No Known Allergies Results Component Value Reference Range Notes Hemoglobin A1c Reviewed date:06/01/2024 01:11:54 PM Interpretation: Performing Lab: Notes/Report: Hemoglobin A1c 6.5 Hemoglobin A1c Reviewed date:10/12/2024 09:20:18 AM Interpretation: Performing Lab: Notes/Report: Hemoglobin A1c 6.6 Liver Panel Reviewed date:06/28/2024 12:43:59 PM Interpretation: Performing Lab:[facility], [address] [place] [phone] Notes/Report: Bilirubin Total 0.6 0.0-1.0 mg/dL Bilirubin Direct 0.2 0.0-0.5 mg/dL Aspartate Amino Transferase 31 5-37 U/L Alanine Aminotransferase 22 0-40 U/L Total Protein 7.3 6.5-8.0 g/dL Albumin Level 3.6 3.5-5.0 g/dL Alkaline Phosphatase 84 39-117 U/L Glucose Fasting Reviewed date:06/28/2024 12:42:15 PM Interpretation: Performing Lab:[facility], [address] [place] [phone] Notes/Report: Glucose Fasting 132 60-99 mg/dL A fasting glucose of 126 mg/dl or greater on more than one occasion is considered diagnostic of diabetes. Lipid Panel with Reflex Reviewed date:06/28/2024 12:44:26 PM Interpretation: Performing Lab:[facility], [address] [place] [phone] Notes/Report: Triglycerides 223 <150 mg/dL Desirable Triglyceride: [...] A1c Reviewed date:06/28/2024 12:42:07 PM Interpretation: Performing Lab:[facility], [address] [place] [phone] Notes/Report: Hemoglobin A1c % 6.8 <6.0 % [...] average glucose, using the formula of the W1A-[place] Average Glucose study (ADAG), Diabetes Care, Vol.31,#8, Oct. 2007 Complete Blood Count Auto Di ff Reviewed date:06/28/2024 05:12:28 PM Interpretation: Performing Lab:[facility], [address] [place] [phone] Notes/Report: White Blood Count 9.8 4.8-10.8 X10*3/uL [...] NRBC Abs Auto 0.000 0.0-0.012 X10*3/uL Comprehensive [place]. Panel Fa st (Not yet reviewed by provider) Interpretation: Performing Lab:[facility], [address] [place] [phone] Notes/Report: Sodium 142 135-145 mmol/L Potassium 4.3 [...] yet reviewe d by provider) Interpretation: Performing Lab:[address] [phone] Notes/Report: Triglycerides 245 <150 mg/dL Desirable Triglyceride: [...] t yet reviewed by provider) Interpretation: Performing Lab:[address] [phone] Notes/Report: PSA,Total (Free>4and<10) 0.61 0.00-4.00 ng/mL A [...] 4.0 and 10.0 ng/mL. PSA methodology: [place] i Chemiluminescent Microparticle Immunoassay (CMIA) TSH reflex Free T4 (Not yet reviewed by provider) Interpretation: Performing Lab:[facility], [address] [place] [phone] Notes/Report: TSH reflex Free T4 1.91 0.32-4.0 uIU/mL Microalbumin, Random (Not ye t reviewed by provider) Interpretation: Performing Lab:[facility], [address] [place] [phone] Notes/Report: Creatinine Urine 112.83 Microalbumin Urine 6.0 Microalbum/Creatinine Ratio Ur 5.3 <30 ug/mg cr Albumin/Creatinine Ratio Reference Ranges: Normal: < 30 ug/mg creatinine Microalbuminuria: 30 - 300 ug/mg creatinine Clinical Albuminuria: > 300 ug/mg creatinine Complete Blood Count Auto Di ff Reviewed date:12/31/2024 11:32:02 AM Interpretation: Performing Lab:[facility], [address] [place] [phone] Notes/Report: White Blood Count 9.3 4.8-10.8 X10*3/uL [...] 4.9 2.0-8.3 x10*3/uL Imm Gran Abs Auto 0.05 0.00-0.03 X10*3/uL Lymphocytes Absolute Auto 3.0 1.2-4.9 X10*3/uL Monocytes Absolute Auto 1.0 0.1-1.2 X10*3/uL Eosinophils Absolute Auto 0.4 0.0-0.4 X10*3/uL Basophils Absolute Auto 0.0 0.0-0.2 X10*3/uL NRBC Abs Auto 0.000 0.0-0.012 X10*3/uL Hemoglobin A1c Reviewed date:12/31/2024 12:06:45 PM Interpretation: Performing Lab:[facility], [address] [place] [phone] Notes/Report: Hemoglobin A1c % 6.4 <6.0 % [...] average glucose, using the formula of the L3V-Uewzuqv Average Glucose study (ADAG), Diabetes Care, Vol.31,#8, Oct. 2007 UA ClnCatch+Micro w/rflx Cul t Reviewed date:12/31/2024 11:29:18 AM Interpretation: Performing Lab:[facility], [address] [place] [phone] Notes/Report: Urine, Clean Catch Color Urine Yellow Appearance Urine Clear PH 5.5 5.0-9.0 Glucose Urine UA Negative Negative mg/dL Urine Blood Negative Negative Specific [place] - Urine 1.020 1.005-1.025 Urine Protein Negative [...] PM Interpretation: Performing Lab: Notes/Report: Value 190 Glucose, finger stick Reviewed date:10/12/2024 09:06:37 AM Interpretation: Performing Lab: Notes/Report: Value 152 CT lung screening Reviewed date:04/27/2024 12:59:51 PM Interpretation: Performing Lab: Notes/Report: [address] [address] [place] Scan Report Signed Patient: Ortega Lange MR#: [id number] : 1950 Acct:[id number] Age/Sex: 73 / M ADM Date: 04/26/24 Loc: HO.CT Attending Dr: Luz Randhawa PA-C Ordering Physician: Luz Randhawa PA-C Date of Service: 04/26/24 Procedure(s): CT lung screening Accession Number(s): [id number] cc: Dhruv Duncan MD; Luz Randhawa PA-C Report Number: [id number]: Total DLP = 68.00 mGy-cm CLINICAL HISTORY: [...] 04/27/24 1250 DD/ 1249 TD/TT: 04/27/24 1249 Sash Clamp Operator: [place] [address] [place] Scan Report Signed Patient: Ortega Lange MR#: [id number] : 1950 Acct:[id number] Age/Sex: 73 / M ADM Date: 04/26/24 Loc: HO.CT Attending Dr: Luz Randhawa PA-C Ordering Physician: Luz Randhawa PA-C Date of Service: 04/26/24 Procedure(s): CT josie g screening Accession Number(s): [id number] cc: Dhruv Duncan MD; Luz Randahwa PA-C Report Number: [id number]: Total DLP = 68.00 mGy-cm CLINICAL HISTORY: [...] Aguilar MD in OV> 04/27/24 1250 DD/ 124 TD/TT: 04/27/24 124 Sash Clamp Operator: Complete Blood Count Auto Di ff Reviewed date:05/27/2024 07:16:18 AM Interpretation: Performing Lab:[facility], [address] [place] [phone] Notes/Report: White Blood Count 17.4 4.8-10.8 X10*3/uL [...] Panel Reviewed date:05/25/2024 08:06:03 PM Interpretation: Performing Lab:[facility], [address] [place] [phone] Notes/Report: Sodium 137 135-145 mmol/L Potassium 3.8 [...] Magnesium Reviewed date:05/25/2024 08:00:44 PM Interpretation: Performing Lab:[facility], [address] [place] [phone] Notes/Report: Magnesium 1.8 1.6-2.6 mg/dL Troponin-I High Sensitivity Reviewed date:05/25/2024 08:00:52 PM Interpretation: Performing Lab:[facility], [address] [place] [phone] Notes/Report: Troponin-I High Sensitivity 5.9 <3.5-35.0 ng/L The [place] high sensitivity Troponin-I results should be used in conjunction with other diagnostic information such as ECG, clinical observations and information, and patient symptoms to aid in the diagnosis of AR. SLIDE REVIEW Reviewed date:05/25/2024 07:59:08 PM Interpretation: Performing Lab:[facility], [address] [place] [phone] Notes/Report: SLIDE REVIEW VERIFIED SARS-CoV2/FLU/RSV Reviewed date:05/25/2024 07:58:17 PM Interpretation: Performing Lab:[facility], [address] [place] [phone] Notes/Report: Influenza A PCR NEGATIVE Negative Influenza [...] by authorized laboratories. Testing performed on the [employer] GeneXpert utilizing real-time RT-PCR. All SARS CoV2 and positive influenza A/B results are reported to [facility]. XR chest 1V Reviewed date:05/25/2024 08:05:43 PM Interpretation: Performing Lab: Notes/Report: [address] [address] XRay Report Signed Patient: Ortega Lange MR#: [id number] : 1950 Acct:[id number] Age/Sex: 73 / M ADM Date: 05/25/24 Loc: .ED Attending Dr: Ordering Physician: Breanna Fry Date of Service: 05/25/24 Procedure(s): XR chest 1V Accession Number(s): [id number] cc: Dhruv Duncan MD; Breanna Fry EXAMINATION: [...] Jaime Keys MD 05/25/2024 02:18 PM EDT RP Dictated By: Jaime Keys MD Signed By: <Electronically signed by Jaime Keys MD in OV> 05/25/24 1418 DD/ 1400 TD/TT: 05/25/24 1412 Sash Clamp Operator: [address] [address] XRay Report Signed Patient: Ortega Lange MR#: [id number] : 1950 Acct:[id number] Age/Sex: 73 / M ADM Date: 05/25/24 Loc: .ED Attending Dr: Ordering Physician: Breanna Fry Date of Service: 05/25/24 Procedure(s): XR [address] st 1V Accession Number(s): [id number] cc: Dhruv Duncan MD; Breanna Fry EXAMINATION: [...] Jaime Keys MD 05/25/2024 02:18 PM EDT RP Dictated By: Jaime Keys MD Signed By: <Electronically signed by Jaime Keys MD in OV> 05/25/24 1418 DD/ 1400 TD/TT: 05/25/24 1412 Sash Clamp Operator: Troponin-I High Sensitivity Reviewed date:05/25/2024 07:58:55 PM Interpretation: Performing Lab:[facility], [address] [place] [phone] Notes/Report: Troponin-I High Sensitivity 6.3 <3.5-35.0 ng/L The [place] high sensitivity Troponin-I results should be used in conjunction with other diagnostic information such as ECG, clinical observations and information, and patient symptoms to aid in the diagnosis of AR. Huy Olivas Reviewed date:06/28/2024 12:40:54 PM Interpretation: Performing Lab:[facility], [address] [place] [phone] Notes/Report: Huy Olivas See Note Specimen held [...] Referring Provider Speciality Internal edicine Referred Provider KALANI CONWAY Referred Provider [...] capsule Orally onc e a day Not-Taking Lisinopril-hydroCHLOROthia zide 20-12.5 MG TAKE ONE TABLET BY MOUTH ONCE DAILY for 90 days Active metFORMIN HCl 500 MG Take 1 tablet by [facility] once a day for 30 day(s) with a meal Active Atorvastatin Calcium 80 MG TAKE ONE TABL ET BY MOUTH ONCE DAILY Active oxyCODONE HCl 5 MG 1 tablet as needed Orally twice a day as needed for 20 days 09/11/2023 Not-Taking Tadalafil 20 MG 1 tablet as needed Orally Once a day for 30 days 10/12/2024 Active Levothyroxine Sodium 175 MCG Take 1 tablet by mouth once daily for 90 Active Albuterol Sulfate HFA 108 (90 Base) MCG/ACT 1 puff as needed Inhalation every 4 hrs for 30 days 06/01/2024 Active Immunizations Vaccine Route Administration Date Status Comme nts Flu Vaccine IM Intramuscular 02/03/2012 Administered Flu Vaccine IM Intramuscular 11/23/2012 Administered PPSV23 (Pnemovax) IM Intramuscular 09/19/2014 Administered Fluarix Quadrivalent IM Intramuscular 12/19/2014 Administe red Prevnar 13 IM Intramuscular 10/05/2015 Administered Fluarix Quadrivalent IM Intramuscular 12/04/2015 Administe red Fluarix Quadrivalent IM Intramuscular 12/24/2016 Administmerari foster TDaP Unknown 12/24/2016 Administered [facility] Fluarix Quadrivalent [...] with juan ntix last cigarette was 1-16-18 has stopped smoking with juan ntix last cigarette was 1-16-18 has stopped smoking with juan ntix last cigarette was 1-16-18 has stopped smoking with juan ntix last cigarette was 116-18 has stopped smoking with juan ntix last cigarette was 1-16-18 has stopped smoking with juan ntix last cigarette was 1-16-18 has stopped smoking with juan ntix last cigarette was 1-16-18 has stopped smoking with juan ntix last cigarette was 1-16-18 Problems Problem Type SNOMED Code ICD Code Onset Dates Problem Status W/U Status Risk Notes Problem 934088067 Restless legs sy ndrome (G25.81) Active confirmed Problem 65979914 Smoker (F17.200) Active confirmed Problem 10290629 Essential hypert ension (I10) Active confirmed Problem 776696291 Acquired hypothyroidism (E03.9) Active confirmed Problem 4613259 Prediabetes (R73.09) Active confirmed Problem 70787454 RBBB (I45.10) Active confirmed Problem Chronic obstructive pulmonary disease (75043111) Chronic obstructive pulmonary disease (J44.9) Active confirmed Problem 08852234 Chronic obstruct pauline pulmonary disease, unspecified COPD type (J44.9) Active confirmed Problem 869307554 History of hemat uria (Z87.448) Active confirmed Problem 340159172 Pure hypercholesterolemia (E78.00) Active confirmed Problem 4528808436639547 Arthritis of le ft hip (M16.12) Active confirmed Problem Radiology result abnormal (638084595) Abnormal chest CT (R93.89) Active confirmed Problem 60911844 Arthritis, hip (M16.10) Active confirmed Problem 98660070 Type 2 diabetes mellitus treated without insulin (E11.9) Active confirmed Vital Signs Blood pressure diastolic 70 mm Hg 10/12/2024 Height 72 in 10/12/2024 Blood pressure systolic 132 mm Hg 10/12/2024 Weight 242 lbs 10/12/2024 BMI 32.82 kg/m2 10/12/2024 Encounters Encounter Location Date Provider Diagnosis Dhruv Duncan MD [address] [place] [id number] 06/28/2024 Dhruv Duncan Pure hypercholestero lemia E78.00 and Type 2 diabetes mellitus treated without insulin E11.9 Dhruv Duncan MD [address] [place] [address] Drive [address] [place] [id number] 06/28/2024 Dhruv Duncan Anemia D64.9 Dhruv Duncan MD [address] [place] [address] [id number] 12/31/2024 Dhruv Duncan Essential hypertensi on I10 ; Pure hypercholesterolemia E78.00 ; Type 2 diabetes mellitus treated without insulin E11.9 and Acquired hypothyroidism E03.9 Dhruv Duncan MD [address] [place] [id number] 01/05/2024 Dhruv Duncan Essential hypertensi on I10 ; Acquired hypothyroidism E03.9 ; Smoker F17.200 ; Prediabetes R73.09 ; Seborrheic keratosis L82.1 ; Type 2 diabetes mellitus treated without insulin E11.9 ; Chronic obstructive pulmonary disease, unspecified COPD type J44.9 ; Pure hypercholesterolemia E78.00 ; Colon cancer screening Z12.11 and Depression screening Z13.31 Dhruv Duncan MD [address] [place] [id number] 04/22/2024 Dhruv Duncan Gastroenteritis due to norovirus A08.11 Dhruv Duncan MD [address] [id number] 06/01/2024 Dhruv Duncan Chronic obstructive pulmonary disease, unspecified COPD type J44.9 ; Chest pressure R07.89 ; Smoker F17.200 and Type 2 diabetes mellitus treated without insulin E11.9 Dhruv Duncan MD [address] [place] [id number] 07/05/2024 Dhruv Duncan Type 2 diabetes tejal itus treated without insulin E11.9 ; Pure hypercholesterolemia E78.00 and Anemia, unspecified type D64.9 Dhruv Duncan MD [address] [place] [id number] 10/12/2024 Dhruv Duncan Type 2 diabetes tejal itus treated without insulin E11.9 and Erectile disorder N52.9 Dhruv Duncan MD [address] [place] [id number] 05/27/2024 Dhruv Duncan MD [address] [place] [address] [address] [id number] 05/27/2024 Dhruv Duncan MD [address] [place] [id number] 07/08/2024 Dhruv Duncan Essential hypertensi on I10 Assessments Encounter Date Diagnosis (ICD Code) Assessment Notes Treatment Notes Treatment Clinical Notes Section Notes 06/28/2024 Pure hypercholesterolemia (ICD-10 - E78.00) 06/28/2024 Anemia (ICD-10 - D64.9) 12/31/2024 Essential hypertensi on (ICD-10 - I10) 01/05/2024 Essential hypertensi on (ICD-10 - I10) [...] current medication, advised on diet and exerise 10/12/2024 Type 2 diabetes mellitus treated without insulin (ICD-10 - E11.9) doing well on meds, will continue current regiment 10/12/2024 Erectile disorder (ICD-10 - N52.9) patient verbalized understanding of medication and directions for use 07/08/2024 Essential hypertensi on (ICD-10 - I10) 06/28/2024 Type 2 diabetes mellitus treated without insulin (ICD-10 - E11.9) 12/31/2024 Pure hypercholesterolemia (ICD-10 - E78.00) 01/05/2024 Smoker (ICD-10 - F17.200) not interested in quiitting 06/01/2024 Smoker (ICD-10 - F17.200) has decided to quit 07/05/2024 Anemia, unspecified type (ICD-10 - D64.9) will continue to monitor 12/31/2024 Type 2 diabetes mellitus treated without insulin (ICD-10 - E11.9) 01/05/2024 Prediabetes (ICD-10 - R73.09) advised to lose weight and stay away from carbs, will continue to monitor 06/01/2024 Type 2 diabetes mellitus treated without insulin (ICD-10 - E11.9) discussed diet 12/31/2024 Acquired hypothyroid ism (ICD-10 - E03.9) 01/05/2024 Seborrheic keratosis (ICD-10 - L82.1) no [...] Date Electrocardiogram (EKG) 10/05/2015 Electrocardiogram (EKG) 10/23/2017 Comprehensive [place]. Panel Fast Lipid Panel 12/31/2024 PSA,Total (Free>4and<10) 12/31/2024 TSH reflex Free T4 12/31/2024 Microalbumin, Random 12/31/2024 Next Appt Details Provider Name:Dhruv Araujo ier, 01/07/2025 01:00:00 PM, [address] [place] [address], [address], [place], [place], [id number], Insurance Providers Payer Name Payer Address Payer Phone Subscriber Number Group Number Insured Name Patient Relationship to Insured Coverage Start Date Coverage End Date MEDICARE NHIC [address] [place] [address] [id number] Ortega Paredes se Self - patient is the insured [place] [place] [address] [place] [address] [id number] Ortega Paredes se Self - patient is the insured Medical (General) History Medical History History ICD Code hematuria w/u 2002 colonoscopy 2007 due in 10 y ears; colonoscopy done 07/03/[address] Duke - repeat 10 years
--- OUTSIDE RECORDS SUMMARY | 2024-12-31 12:18 | XMS_ITS | Patient Health Record ---
Author Organization [facility] Address [address] [place] [phone] Care Team Providers Care Life Insurance Sales Agent Name Role Phone Dhruv Duncan MD Primary Care Provider Jaime Hand Unavailable [phone] Reason For Referral No Information Medications Medication SIG (Take, Route, Frequency, Duration) Notes Start Date End Date Status Levothyroxine Sodium 200 MCG TAKE 1 TABL ET BY MOUTH EVERY DAY Oral; Duration: 90 Active Atorvastatin Calcium 50 mg 1 [...] Problem Status W/U Status Risk Notes Problem Screening for malignant neoplasm of colon (524199389) Encounter for screening for malignant neoplasm of colon (Z12.11) Active confirmed Problem Preprocedural examination (546675411297877) Preprocedural examination (Z01.818) Active confirmed Plan Of Treatment Future Test Test Name Order Date COLONOSCOPY 05/19/2018 Insurance Providers Payer Name Payer Address Payer Phone Subscriber Number Group Number Insured Name Patient Relationship to Insured Coverage Start Date Coverage End Date MEDICARE OF [place] [address] [place] [address] [id number] DEB CORRALES SE Self - patient is the insured MEDEX ATTN CLAIMS [address] [place] [phone] [id number] DEB CORRALES SE Self - patient is the insured Medical (General) History Medical History History ICD Code Denies IA,DM,CVA,Lung disease,renal dise ase Hypertension Elevated Cholesterol Negative colonoscopy in 2000 and in 2007 Hypothyroidism Negative transglutaminase IgA and IgG an tibodies in 2007 Surgical History Surgery Date(Month/Year) Right knee replacement in 2014 Back surgery 2012
== END 2024-12-31 10:46 | disposition home or self-care (01) ==
LOC: HO.LNP 10:45
PROVIDERS: Visit Provider Internal Medicine
DX: Z12.5 Encounter for screening for malignant neoplasm of prostate (principal); I10 Essential (primary) hypertension; E78.00 Pure hypercholesterolemia, unspecified; E11.9 Type 2 diabetes mellitus without complications; E03.9 Hypothyroidism, unspecified
CPT/HCPCS: 80053; 80061; 81001; 82043; 82570; 83036; 84153; 84443; 85025

== ENCOUNTER 2025-02-08 13:48 | Outpatient (AMB) | payer MEDICARE, SELFPAY ==
--- NOTE | 2025-02-08 13:51 | MHC.OFFVIS ---
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 Earlier this year he was having symptoms of chest pain and subsequently was diagnose with COPD and being managed. He had a CTA lung for cancer screening which shows moderate coronary calcification. He has never had any cardiac workup. He denies ever having prior cardiac issues including myocardial infarction. He is referred here for further evaluation. He has prior history of hypertension which has been well controlled on current therapy as well as hyperlipidemia for which she is on high-intensity statin therapy. He has family history for coronary disease and he is referred here for further evaluation. He denies any ongoing current exertional chest pain although he gets symptoms in the past which is not well controlled. He does have symptoms exertional shortness of breath. Denies orthopnea, PND, leg edema. Denies any prolonged palpitation irregular heartbeat. No lightheadedness, syncope. Takes his medications regularly. [facility] Medical History Hypoxia Dyspnea Asthma-COPD overlap syndrome Nicotine dependence, cigarettes, uncomplicated Hypothyroidism Hyperlipidemia Hypertension, essential, benign Surgical History History of back surgery History of right knee joint replacement History of colonoscopy Social History Patient Tobacco Use Status: Current everyday Tobacco user Tobacco use type: Cigarette Review of Systems Const Denies chills, Denies daytime sleepiness, Denies fatigue, Denies fever(s), Denies frequent falls, Denies poor appetite, Denies snoring, Denies stops breathing during sleep, Denies weakness, Denies weight gain and Denies weight loss Eyes Denies loss of vision ENT Denies dizziness and Denies hearing loss Card Denies chest pain, Denies claudication, Denies leg edema, Denies lightheadedness, Denies palpitations, Denies dyspnea, Denies dyspnea on exertion and Denies orthopnea Resp Denies cough, Denies excessive phlegm production, Denies dyspnea, Denies dyspnea on exertion, Denies snoring and Denies wheezing GI Denies abdominal pain, Denies hematochezia, Denies change in bowel habits, Denies nausea and Denies vomiting Denies dysuria and Denies urinary frequency Musc Denies arthralgias, Denies muscle weakness and Denies numbness Skin/Breast Denies nail changes and Denies rash Neuro Denies Abnormal speech present, Denies dizziness, Denies frequent falls, Denies loss of vision, Denies memory loss, Denies numbness and Denies weakness Psych Denies depression and Denies memory loss Endo Denies fatigue and Denies palpitations Patrick/Lymph Reports easy bruising and Reports other (anemia) Aller/Immun Denies wheezing Physical Exam Vital Signs: Last Vital Signs Pulse 88 02/08/25 13:52 BP 120/68 02/08/25 13:52 BMI result Body Mass Index 33.2 Const General: cooperative, comfortable, no acute distress, alert, awake and Physically active Nutritional Appearance: overweight Orientation/consciousness: patient oriented x3 Limitations: no limitations HEENT Head: Yes normocephalic and Yes atraumatic Neck Neck: Yes trachea midline, Yes supple and Yes no JVD Resp Effort & Inspection: normal respiratory effort Auscultation: no rales, no wheezes and diminished lung sounds Cardio Jugular venous distension: no JVD Rate: regular rate Rhythm: regular rhythm Heart sounds: S1 normal heart sound present, S2 normal heart sound present, no click, no gallops, no murmurs and no rubs Bruits: no carotid bruits GI Auscultation: normal bowel sounds Skin General skin exam: no rashes or lesions noted Neuro General: patient oriented x3 and no focal motor deficits Speech: No Abnormal speech present Extrem General: Yes no clubbing, cyanosis or edema Office Procedures EKG Details: EKG shows normal sinus rhythm with right bundle-branch block with possible inferior infarct based on Q-waves in lead 3 and AVF [id number], Complete Assessment & Plan Assessment & Plan (1) CAD (coronary artery disease): Code(s): I25.10 - Atherosclerotic heart disease of [place] coronary artery without angina pectoris Category: Medical Plan: CAD based on CTA long testing showing at least moderate coronary calcification with significant risk factors including family history, hypertension, hyperlipidemia and advancing age. Patient has exertional shortness of breath although had chest tightness in the past which symptoms have improved with COPD therapy. Need to rule out any prognostically significant obstructive coronary artery disease with myocardial perfusion imaging. This was discussed with him. Will pursue exercise myocardial perfusion imaging in the near future. Discussed with him about the rationale for this. He understands agrees. Currently blood pressure is well optimized and would continue current therapy. Continue high-intensity statin therapy with target goal LDL less than 70 mg/dL. Would also suggest low-dose aspirin therapy given his moderate coronary calcification which is suggestive of underlying coronary atherosclerosis. (2) Right bundle branch block (RBBB) determined by electrocardiography: Code(s): I45.10 - Unspecified right bundle-branch block Category: Medical Plan: Noted right bundle-branch block on EKGs was not aware of it. Pathophysiology of right bundle-branch block was needed. Biceps does not require any further therapy. However underlying structural heart disease needs to be ruled out. Suggest exercise myocardial perfusion imaging as well as an echocardiogram to assess for the same. Discussed with him about the same. He understands agrees. Annual EKGs will be pursued through your office. Will follow up in the clinic in 6 weeks time after above-mentioned test. If everything is normal then will follow him on PRN basis. Thank you for allowing me to partake in his care Orders: Orders CA stress test Today I25.10 - Atherosclerotic heart disease of [place] coronary artery without angina pectoris NM cardiolite stress test 2 Weeks I25.10 - Atherosclerotic heart disease of [place] coronary artery without angina pectoris, R07.9 - Chest pain, unspecified CA echo transthoracic complete Today I10 - Essential (primary) hypertension, I25.10 - Atherosclerotic heart disease of [place] coronary artery without angina pectoris, I45.10 - Unspecified right bundle-branch block Coding Level of Care Code Complex visit Add On G2211 Diagnoses CAD (coronary artery disease) I25.10 Right bundle branch block (RBBB) determined by electrocardiography I45.10 CPT Codes EKG - CPT: [id number], Complete ([id number])
[2025-02-08 13:52] VITALS: BP 120/68; PULSE 88; BMI 33.2
== END 2025-02-08 14:38 | disposition home or self-care (01) ==
LOC: HO.HCS 13:48
PROVIDERS: PCP Internal Medicine; Visit Provider Internal Medicine Cardiovascular Disease
DX: I25.10 Atherosclerotic heart disease of native coronary artery without angina pectoris (principal); I45.10 Unspecified right bundle-branch block
CPT/HCPCS: 93010; 99214; G2211

== ENCOUNTER → 2025-02-08 13:48 | Outpatient (BNVA) | payer MEDICARE, SELFPAY | PROVIDERS: PCP Internal Medicine; Visit Provider Internal Medicine Cardiovascular Disease | DX: I25.10 Atherosclerotic heart disease of native coronary artery without angina pectoris (principal); I10 Essential (primary) hypertension; I45.10 Unspecified right bundle-branch block | CPT/HCPCS: 93005; 99212 ==